=== PATIENT | male | born 1955 | race Caucasian/White ===

== ENCOUNTER 2020-02-24 17:24 | Inpatient (IN) | payer OTHER ==
[~2020-02-24 17:24] MED LIST: Rocuronium Bromide 10 MG/ML (10ML VIAL) ONE
[2020-02-24 17:59] LABS: Actual Bicarbonate (HCO3a) 18.3 mEq/L (22-28); Analyzer IN Cardio ER; Base Excess (BEa) -4.6 mEq/L (-2.0 to +3.0); CO2 Tension 28.2 mmHg (35.0-45.0); Calcium, Ionized (arterial) 1.06 mmol/L (1.12-1.30); Carboxyhemoglobin (COHb) 0.2 gm% (0.0-3.0); Hemoglobin (Hb) 14.5 g/dL (14.0-18.0); Potassium - ABG Lab 3.68 mmol/L (3.70-5.30); pH, Arterial 7.43 (7.35-7.45)
[2020-02-24] MEDS ORDERED: Cefepime 2 GM VIAL ONE (18:02)
[2020-02-24] MEDS ORDERED: Albuterol 200 PUFF (6.7GM INHALER) ONE (18:02)
[2020-02-24] MEDS ORDERED: Vancomycin 1 GM/200 ML BAG ONE (18:02)
[2020-02-24 18:13] LABS: O2 Tension (PaO2), arterial 54.3 mmHg (> 80.0); Puncture Site RRA
[2020-02-24 18:18] LABS: #Lymphocytes 0.6 thou/uL (1.20-3.40); #Monocytes 0.3 thou/uL (0.11-0.59); %Lymphocytes 15.1 % (21.0-51.0); %Monocytes 8.2 % (0.0-10.0); %Neutrophils 76.6 % (42.0-75.0); Hemoglobin 11.8 g/dL (14.0-18.0); Mean Corpuscular HGB CONC 35.1 g/dL (32.0-36.0); Mean Corpuscular Hemoglobin 35.1 pg (27.0-31.0); Mean Platelet Volume 8.3 fL (7.4-10.4); Platelet Count 38 thou/uL (130-400); RBC Distribution Width 13.6 % (11.5-14.5); Red Blood Cell (RBC) Count 3.35 mill/uL (4.70-6.10); White Blood Cell (WBC) Count 3.9 thou/uL (4.8-10.8)
[2020-02-24 18:33] LABS: Platelet Morphology Comment Appears Decreased
[2020-02-24 18:35] LABS: ALT (SGPT) 36 U/L (8-55); AST (SGOT) 109 U/L (5-34); Albumin 2.9 g/dL (3.4-4.8); Alkaline Phosphatase 152 U/L (40-110); Anion Gap 13 mmol/L (10-20); BUN (Urea Nitrogen) 18 mg/dL (8.4-25.7); Bilirubin, Total 1.5 mg/dL (0.2-1.2); CK (CPK) 685 U/L (30-200); Calc. Creatinine Clearance 0 mL/min (70-130); Calcium 7.5 mg/dL (7.8-10.44); Carbon Dioxide 18 mmol/L (23-31); Chloride 107 mmol/L (98-107); Estimated GFR-MDRD Greater than 90; Globulin 3.3 g/dL (2.4-3.5); Glucose 150 mg/dL (80-115); Magnesium 2.1 mg/dL (1.6-2.6); Potassium 3.7 mmol/L (3.5-5.1); Protein, Total 6.2 g/dL (5.8-8.1); Sodium 134 mmol/L (136-145)
[2020-02-24 19:05] LABS: CKMB 85.6 ng/mL (0-6.6)
--- NOTE | 2020-02-24 19:06 | RAD ---
Chest AP view INDICATION: 64-year-old male with dyspnea, hypoxia and hypotension COMPARISON: Prior chest radiograph dated February 18, 2020 FINDINGS: Lungs: Since the comparison examination, there is been interval development of prominent peripheral airspace opacities within the right upper lobe and left midlung suspicious for pneumonia. Cardiac silhouette: The cardiomediastinal silhouette appears within normal limits. Pulmonary vasculature: Normal Pleural spaces: No pleural effusion or pneumothorax is demonstrated. Upper abdomen: No abnormality seen. Osseous structures: No acute osseous abnormality. Additional findings: None. IMPRESSION: Bilateral pneumonia
[2020-02-24 20:13] LABS: Actual Bicarbonate (HCO3a) 15.4 mEq/L (22-28); Analyzer IN Cardio ER; Base Excess (BEa) -13.8 mEq/L (-2.0 to +3.0); Calcium, Ionized (arterial) 1.11 mmol/L (1.12-1.30); Hemoglobin (Hb) 13.8 g/dL (14.0-18.0); Potassium - ABG Lab 3.72 mmol/L (3.70-5.30)
[2020-02-24 20:16] LABS: O2 Tension (PaO2), arterial 55.6 mmHg (> 80.0); pH, Arterial 7.12 (7.35-7.45)
[2020-02-24 20:17] LABS: Puncture Site LR
--- NOTE | 2020-02-24 20:35 | RAD ---
PORTABLE CHEST ONE VIEW: 02/24/20 at 8:04 p.m. HISTORY: Respiratory failure. FINDINGS/IMPRESSION: Comparison is made with earlier exam of 6:41 p.m. from the same date. Interval placement of an endotr acheal tube is seen with tip just below the level of the clavicular heads. A nasogastric tube has als o been placed which can traced into the abdomen. Remainder of the exam is otherwise unchanged with b ilateral peripheral air space opacities. POS: MZA
[2020-02-24 21:03] LABS: Bilirubin Negative (Negative); Blood, Urine 1+ (Negative); Clarity Clear (Clear); Glucose, Urine (Dipstick) Normal (Negative); Leukocyte Negative Leu/uL (Negative); Mucous/LPF Rare LPF (<2+); Nitrite Negative (Negative); Protein, Urine (Dipstick) 30 mg/dL (Neg-Trace); Renal Epithelial 0-3 HPF (None Seen); Squamous Epithelial None Seen HPF (0-3); Urobilinogen 3 mg/dL (Less than 2); WBC/HPF 0-3 HPF (0-3)
--- NOTE | 2020-02-24 21:06 | PDOC.FPRHP ---
Addendum entered and electronically signed by Mushtaq Packer MD 02/24/20 21:50 : I went assessed physical on patient. Pt prone and intubated at time of examination. No edema or rash or sign of skin infection noted. VSS. Covering pt with cefepime abx at this time. Likely course 2/2 COVID but will cover Bilateral PNA for any hospital acquired cause as recently was hospitilized at [facility]. Original Note: - History of Present Illness Chief Complaint: SOB/Hypotension History of Present Illness: 64 yo male presents via EMS from nursing home due to increased SOB and hypotension. History obtained from chart review and ED staff. Patient was diagnosed with COVID on 02/18/2020 at [facility]. Patient was discharged back to nursing home facility. Over the last several days he became increasingly SOB and today was found to have a room air O2 in the 70s. He was also found to be hypotensive to 90s/60s and was given NS bolus with improvement of BP to normotensive range. Upon arrival to [facility] he was placed on HFNC and his O2 saturation improved to 90s. However, he began to have increased dyspnea and was intubated. No other history was able to be obtained. ED Course: Vancomycin Cefepime Proventil Rocuronium Etomidate Fentanyl - Allergies/Adverse Reactions Allergies Allergy/AdvReac Type Severity Reaction Status Date / Time No Known Allergies Allergy Unverified 02/24/20 20:03 - Home Medications Medication Instructions Recorded Confirmed Type Unobtainable 02/24/20 02/24/20 History - History PMHx: COPD, HTN, CAD, HLD, Cirrhosis, Thrombocytopenia, Bipolar PSHx: Inguinal Hernia FHx: Non-contributory Social: Currently incarcerated. Former methamphetamine and tobacco abuser. - Review of Systems ROS unobtainable: due to endotracheal tube - Vital signs BP: 134/94 HR: 109 RR: 33 Tmax: 99.1 Pox: 94% on Ventilator Wt: 84.00 kg - Physical Exam -Constitutional: Intubated and sedated -HEENT: ET in place Neck: trachea midline -Chest: Symmetric rise and fall -Heart: Sterile stethoscope not available for auscultation -Lungs: No sterile stethoscope available for auscultation Abdomen: soft, non-tender, bowel sounds present, no masses/distention Musculoskeletal: normal structure, normal tone -Neurological: intubated and sedated -Psychiatric: intubated and sedated FMR H&P: Results - Labs Result Diagrams: 02/24/20 17:45 02/24/20 17:45 Lab results: WBC 3.9 thou/uL (4.8-10.8) L 02/24/20 17:45 Hgb 11.8 g/dL (14.0-18.0) L 02/24/20 17:45 Hct 33.5 % (42.0-52.0) L 02/24/20 17:45 MCV 100.0 fL (78.0-98.0) H 02/24/20 17:45 Plt Count 38 thou/uL (130-400) L 02/24/20 17:45 Neutrophils % 76.6 % (42.0-75.0) H 02/24/20 17:45 ABG pH 7.12 (7.35-7.45) L* 02/24/20 19:43 ABG pCO2 49.0 mmHg (35.0-45.0) H 02/24/20 19:43 ABG pO2 55.6 mmHg (> 80.0) L* 02/24/20 19:43 Sodium 134 mmol/L (136-145) L 02/24/20 17:45 Potassium 3.7 mmol/L (3.5-5.1) 02/24/20 17:45 Chloride 107 mmol/L (98-107) 02/24/20 17:45 Carbon Dioxide 18 mmol/L (23-31) L 02/24/20 17:45 BUN 18 mg/dL (8.4-25.7) 02/24/20 17:45 Creatinine 0.83 mg/dL (0.7-1.3) 02/24/20 17:45 Glucose 150 mg/dL (80-115) H 02/24/20 17:45 Lactic Acid 2.8 mmol/L (0.5-2.2) H 02/24/20 17:45 Calcium 7.5 mg/dL (7.8-10.44) L 02/24/20 17:45 Total Bilirubin 1.5 mg/dL (0.2-1.2) H 02/24/20 17:45 AST 109 U/L (5-34) H 02/24/20 17:45 ALT 36 U/L (8-55) 02/24/20 17:45 Alkaline Phosphatase 152 U/L (40-110) H 02/24/20 17:45 Creatine Kinase 685 U/L (30-200) H 02/24/20 17:45 CK-MB (CK-2) 85.6 ng/mL (0-6.6) H* 02/24/20 17:45 Serum Total Protein 6.2 g/dL (5.8-8.1) 02/24/20 17:45 Albumin 2.9 g/dL (3.4-4.8) L 02/24/20 17:45 - EKG Interpretation EK lead EKG shows normal sinus rhythm, Rate (beats per minute): 88, with no ectopics, Conduction normal, ST segments normal, [place], left, Nonspecific T wave abnormalities QTC 515. - Radiology Interpretation Chest x-ray Status: image reviewed by me (Bilateral pneumonia) FMR H&P: A/P - Problem List (1) 2019 novel coronavirus disease (COVID-19) Current Visit: Yes Status: Acute Code(s): U07.1 - COVID-19 (2) Bilateral pneumonia Current Visit: Yes Status: Acute Code(s): J18.9 - PNEUMONIA, UNSPECIFIED ORGANISM (3) NSTEMI (non-ST elevated myocardial infarction) Current Visit: Yes Status: Acute Code(s): I21.4 - NON-ST ELEVATION (NSTEMI) MYOCARDIAL INFARCTION (4) Acute respiratory failure with hypoxia Current Visit: Yes Status: Acute Code(s): J96.01 - ACUTE RESPIRATORY FAILURE WITH HYPOXIA (5) Lactic acid acidosis Current Visit: Yes Status: Acute Code(s): E87.2 - ACIDOSIS (6) Cirrhosis Current Visit: Yes Status: Acute Code(s): K74.60 - UNSPECIFIED CIRRHOSIS OF LIVER (7) Thrombocytopenia Current Visit: Yes Status: Acute Code(s): D69.6 - THROMBOCYTOPENIA, UNSPECIFIED - Plan COVID-19 - Currently intubated - Plan for prone protocol - Isolation precautions - QTC 515 on EKG - Pulmonology consulted Bilateral pneumonia - Evidence on CXR - Empiric antibiotics NSTEMI - Troponin 27.2 on admission - Cardiology consulted and recommended no intervention at this time 2/2 to thrombocytopenia and COVID Thrombocytopenia - Chronic - 2/2 to liver Cirrhosis - Hold on anticoagulation Lactic Acidosis - 2.8 on admission - Repeat pending - Likely secondary to #1 PCP: CC - [facility] CODE STATUS: FULL CODE, but will need to contact nursing home for further direction Disposition: Poor prognosis, will admit to CCU for further evaluation and management Addendum - Attending - Attending Attestation Date/Time: 02/24/20 2770 I personally evaluated the patient and discussed the management with Dr. Baker at time of admission to the CCU yehuda. I agree with the History, Examination, Assessment and Plan documented above with any addition or exceptions noted below.
[2020-02-24 21:09] LABS: Bacteria/HPF 1+ HPF (None Seen)
[2020-02-24 21:16] LABS: Troponin I 24.762 ng/mL (< 0.028)
[2020-02-24] MEDS ORDERED: Fentanyl BOLUS 250 ML IVPB PRN (21:24)
[2020-02-24] MEDS ORDERED: DISCONTINUE PREVIOUS NARCOTIC PAIN MEDICATIONS AND BENZODIAZEPINES FS SCH (21:24)
[2020-02-24] MEDS ORDERED: Morphine 2 MG/ML SYRINGE SLOW IVP PRN (21:24)
[2020-02-24] MEDS ORDERED: Lorazepam 2 MG/ML VIAL SLOW IVP PRN (21:24)
[2020-02-24] MEDS ORDERED: Propofol BOLUS 1,000 MG/100 ML VIAL IV PRN (21:24)
[2020-02-24] MEDS ORDERED: Ventilator Sedation Protocol 1 EACH FS SCH (21:46)
[2020-02-24] MEDS ORDERED: CCU Electrolyte Replacement 1 EACH IVPB SCH (21:46)
[2020-02-24] MEDS ORDERED: Magnesium 2 GM/50 ML 2 GM in Premix Bag 1 BAG IVPB PRN (22:02)
[2020-02-24] MEDS ORDERED: Potassium Phosphate 12 MMOL in Sodium Chloride 0.9% 250 ML 250 ML IV PRN (22:02)
[2020-02-24] MEDS ORDERED: Magnesium Oxide 400 MG TAB PO PRN ×2 (22:02)
[2020-02-24] MEDS ORDERED: Potassium Phosphate 15 MMOL in Sodium Chloride 0.9% 250 ML 250 ML IV PRN (22:02)
[2020-02-24] MEDS ORDERED: Potassium Chloride 20 MEQ TAB PO PRN (22:02)
[2020-02-24] MEDS ORDERED: Potassium Phosphate 9 MMOL in Sodium Chloride 0.9% 100 ML IVPB PRN (22:02)
[2020-02-24] MEDS ORDERED: PHOS-NAK 1 PKT PACK PO PRN ×2 (22:02)
[2020-02-24] MEDS ORDERED: Potassium Chloride 40 MEQ in Premix Bag 1 BAG IVPB PRN (22:02)
[2020-02-24] MEDS ORDERED: CCU ELECTROLYTE REPLACEMENT PROTOCOL FS PRN (22:02)
[2020-02-24] MEDS ORDERED: Potassium Chloride 40 MEQ in Sodium Chloride 0.9% 250 ML 250 ML IVPB PRN (22:02)
[2020-02-24] MEDS ORDERED: Famotidine/PF 20 mg/2ml Vial SLOW IVP SCH (22:15)
[2020-02-24] MEDS: Sodium Bicarbonate 70 MEQ in Sodium Chloride 0.45% 1,000 ML IV SCH (22:18)
[2020-02-24] MEDS ORDERED: Tocilizumab 400 MG in Sodium Chloride 0.9% 80 ML IV SCH (22:30)
[2020-02-24] MEDS: methylPREDNISolone Sod Succ/PF 125 MG/2 ML VIAL IVP SCH (22:57)
[2020-02-24 23:08] LABS: INR-International Normal Ratio 1.1; PTT 29.7 sec (22.9-36.1); Prothrombin Time 14.5 sec (12.0-14.7)
--- NOTE | 2020-02-24 23:09 | PDOC.BPN ---
- Brief Progress Note Nurses called requesting central line access. Due to the patient's thrombocytopenia, I have declined placing CVC due to risk of bleeding complication. I suggested IO access as an alternative.
[2020-02-24 23:10] LABS: D-Dimer Test 1.56 *mcg/mL (0.27-0.43)
[2020-02-24 23:45] LABS: Critical Call Chem Troponin I RESULT DECREASING
[2020-02-24] MEDS: Vecuronium 10 MG VIAL IVP PRN (23:45)
[2020-02-25 00:12] LABS: CKMB 113.5 ng/mL (0-6.6)
--- NOTE | 2020-02-25 01:38 | CON ---
DATE OF CONSULTATION: 02/24/2020 This is a 45 minutes critical care time. CONSULTING PHYSICIAN: [facility]. REASON FOR CONSULTATION: COVID-19 infection, respiratory failure, and pneumonia. HISTORY OF PRESENT ILLNESS: The patient is an inmate from [facility]. He is 64 years old. He has documented COVID-19 infection and was seen here on February 17. Subsequently transferred to [facility] and I guess sent back to the [facility]. He was brought to this facility today with impending respiratory failure. He has had a large non-Q-wave myocardial infarction. He has been intubated at my request because of progressive hypoxemia. PAST MEDICAL HISTORY: 1. COPD. 2. Hypertension. 3. Coronary artery disease. 4. Hyperlipidemia. 5. Cirrhosis. 6. Thrombocytopenia. PAST SURGICAL HISTORY: He has had inguinal hernia surgery. SOCIAL HISTORY: Used to use methamphetamines. Former tobacco smoker. ALLERGIES: NONE LISTED. MEDICATIONS: 1. Aspirin 81 mg daily. 2. Atorvastatin 40 mg daily. 3. Benadryl. 4. Flovent. 5. Perphenazine. 6. Venlafaxine 75 mg daily. REVIEW OF SYSTEMS: Cannot be obtained. The patient is currently on mechanical ventilation. PHYSICAL EXAMINATION: VITAL SIGNS: O2 saturations running in the 80s on mechanical ventilation, temperature 99.1, pulse 117, and blood pressure 147/102. GENERAL: This patient is obtunded, sedated, and paralyzed on mechanical ventilation. HEENT: Pupils are reactive. Sclerae anicteric. Oropharynx clear. NECK: No JVD. LUNGS: Coarse breath sounds bilaterally. CARDIOVASCULAR: S1 and S2. Regular. ABDOMEN: Soft. EXTREMITIES: Petechiae over his extremities. IMAGING: His chest x-ray shows diffuse bilateral infiltrates concentrated mainly in the left lingula and the right upper lobe. ET tube is in good position. LABORATORY DATA: White blood cell count 3.9, hematocrit 33.5, and platelet count 38,000. ABG; pH of 7.12, pCO2 of 49, pO2 of 55 on SIMV rate 22, tidal volume 500, PEEP 10, and FiO2 of 100%. Sodium 134, potassium 3.7, chloride 107, CO2 of 18, BUN 18, creatinine 0.8, glucose 115, and alkaline phosphatase 152. CPK 685 and troponin 27.2. Albumin 2.9, AST 109, and ALT 36. ASSESSMENT AND PLAN: This is an elderly [facility] inmate with multiple comorbidities, who is presenting with a non-Q-wave myocardial infarction, COVID-19 infection with progressive pneumonia, and hypoxic respiratory failure. He also has underlying COPD, thrombocytopenia. He has developed a respiratory and metabolic acidosis, liver dysfunction, and lactic acidosis. This patient's prognosis is very poor. He needs aggressive care that will include prone positioning with mechanical ventilation, IV corticosteroids, convalescent plasma transfusion, and IL-6 inhibitor. Based on how far long he would not be a good candidate from Remdesivir as it is not effective later in the illness. The patient's current myocardial infarction is of extreme concern. It would be nice to anticoagulate the patient. However, he has severe thrombocytopenia with petechial hemorrhages, so that is probably not advisable at this time. Once the patient stabilizes, then [place] transfer needs to be considered. Job ID: [id number]
--- NOTE | 2020-02-25 01:58 | OP ---
DATE OF PROCEDURE: 02/24/2020 PROCEDURE PERFORMED: Right femoral central line placement. PREOPERATIVE DIAGNOSIS: Poor IV access. POSTOPERATIVE DIAGNOSIS: Successful central line placement. ANESTHESIA: 1% lidocaine without epinephrine. DESCRIPTION OF PROCEDURE: Right femoral area was cleansed with chlorhexidine and draped sterilely. 1% lidocaine was used to anesthetize the entry site. Using ultrasound guidance, the right femoral vein was cannulated first attempt. A triple-lumen catheter was placed via modified Seldinger technique without difficulty. Three ports flushed venous blood. Procedure was tolerated well. Job ID: [id number]
[2020-02-25 01:59] LABS: #Lymphocytes 0.4 thou/uL (1.20-3.40); #Monocytes 0.1 thou/uL (0.11-0.59); #Neutrophils 1.8 thou/uL (1.40-6.50); %Basophils 0.3 % (0.0-1.0); %Eosinophils 0.2 % (0.0-10.0); %Lymphocytes 17.7 % (21.0-51.0); %Monocytes 3.7 % (0.0-10.0); %Neutrophils 78.1 % (42.0-75.0); Hemoglobin 12.7 g/dL (14.0-18.0); Mean Corpuscular HGB CONC 34.1 g/dL (32.0-36.0); Mean Corpuscular Hemoglobin 34.9 pg (27.0-31.0); Mean Platelet Volume 8.6 fL (7.4-10.4); Platelet Count 40 thou/uL (130-400); RBC Distribution Width 14.1 % (11.5-14.5); Red Blood Cell (RBC) Count 3.65 mill/uL (4.70-6.10); White Blood Cell (WBC) Count 2.3 thou/uL (4.8-10.8)
[2020-02-25] MEDS: Norepinephrine 8 MG/0.9% NS 250 ML IVPB SCH ×2 (02:19→18:04)
[2020-02-25 02:24] LABS: ALT (SGPT) 39 U/L (8-55); AST (SGOT) 148 U/L (5-34); Albumin 2.8 g/dL (3.4-4.8); Alkaline Phosphatase 147 U/L (40-110); Anion Gap 14 mmol/L (10-20); BUN (Urea Nitrogen) 20 mg/dL (8.4-25.7); Bilirubin, Total 1.8 mg/dL (0.2-1.2); Calc. Creatinine Clearance 124 mL/min (70-130); Calcium 7.4 mg/dL (7.8-10.44); Carbon Dioxide 18 mmol/L (23-31); Chloride 107 mmol/L (98-107); Estimated GFR-MDRD Greater than 90; Globulin 3.4 g/dL (2.4-3.5); Glucose 147 mg/dL (80-115); Potassium 3.9 mmol/L (3.5-5.1); Protein, Total 6.2 g/dL (5.8-8.1); Sodium 135 mmol/L (136-145)
[2020-02-25] MEDS: Vecuronium 10 MG VIAL IVP PRN ×5 (05:05→21:35)
[2020-02-25] MEDS: methylPREDNISolone Sod Succ/PF 125 MG/2 ML VIAL IVP SCH ×4 (05:05→23:47)
[2020-02-25] MEDS: Cefepime 2 GM in Sodium Chloride 0.9% 100 ML IVPB SCH ×2 (05:09→18:04)
--- NOTE | 2020-02-25 06:02 | PDOC.FM ---
- Subjective Subjective: Nursing reports no acute events overnight outside of that documented in the H& P. Pt has has lower end of urine output - Objective MAR Reviewed: Yes Vital Signs & Weight: Vital Signs (12 hours) Pulse Resp BP Pulse Ox 02/25/20 04:00 24 H 02/25/20 03:51 95 02/25/20 02:00 24 H 02/25/20 01:54 89 97/75 02/25/20 00:05 97 24 H 100 02/25/20 00:00 24 H 02/24/20 21:49 91 98/67 Weight Weight 92.7 kg Most Recent Monitor Data Heart Rate from ECG 85 NIBP 96/73 NIBP BP-Mean 80 Respiration from ECG 24 SpO2 98 I&O: 02/23/20 02/24/20 02/25/20 06:59 06:59 06:59 Intake Total 100 Output Total 290 Balance -190 Result Diagrams: 02/25/20 01:44 02/25/20 01:44 Phys Exam - Physical Examination Intubated, prone, sedated, paralized Respiratory: no wheezing, no rhonchi coarse breathsounds throughout, good air movement RRR per leads, unable to auscultate as pt is prone Pt was prone Musculoskeletal: no edema, pulses present Sedated and paralized Skin: cap refill <2 seconds Deviation from normal: clubing of nails, scattered brusing and petechia Dx/Plan (1) 2019 novel coronavirus disease (COVID-19) Code(s): U07.1 - COVID-19 Status: Acute (2) Acute respiratory failure with hypoxia Code(s): J96.01 - ACUTE RESPIRATORY FAILURE WITH HYPOXIA Status: Acute (3) Bilateral pneumonia Code(s): J18.9 - PNEUMONIA, UNSPECIFIED ORGANISM Status: Acute (4) Lactic acid acidosis Code(s): E87.2 - ACIDOSIS Status: Acute (5) NSTEMI (non-ST elevated myocardial infarction) Code(s): I21.4 - NON-ST ELEVATION (NSTEMI) MYOCARDIAL INFARCTION Status: Acute (6) Thrombocytopenia Code(s): D69.6 - THROMBOCYTOPENIA, UNSPECIFIED Status: Acute - Plan Plan: Code: Full Prophylaxis: Pepcid Family: 2 guards per protocol Fluids: Bicarb drip 100ml/hr Drips: Levophed 6, propofol 10 Vent Settings: Bilevel 24 breaths/min, 28/14, Fio2 60 Lines/Tubes: ET,OT,Monreal catheter, right central femoral line, left peripheral IV in hand Hospital day: 1 Disposition: DC in greater that 5 days, attempts will be made to transfer pt to [facility] when pt is more stable PCP: Skilled Nursing Plan: This is an unfortunate 64 yo male with a pmh of cirrhosis, COPD, HTN, HLD , bipolar disorder who is currently incarcerated, here for Sepsis, COVID-19, and respiratory failure. Goals to obtain convalescent plasma for COVID treatment , continue ventilator support, and pressure support. Will address NSTEMI per cardiology recommendations. Acute hypoxic hypercapnic respiratory failure -Intubated, ventilator/respiratory support -Daily ABG and CXR -Will work to wean as appropriate -Sedation protocol -CXR today appears improved from admitting CXR -ABG shows improvement with respiratory alkalosis and underlying metabolic acidosis Bilateral pneumonia 2/2 COVID-19 -S/P tocilizamab and will work to order convalescent plasma -Covering with cefepime for bacterial PNA as well due to recent hospitalization -Covid diagnosed on 02/18/20 Sepsis 2/2 above -Pt has received 1 L of NS and is currently on a bicarb drip -Will monitor urine output to adjust fluids, however pt is at risk for pulmonary edema give etiology of sepsis -Pending Blood cultures NSTEMI type 1 -Cardiology consulted and recommends no intervation or anticoaguation at this time 2/2 thrombocytopenia and COVID. Will wait for cardiology recommendations Pancytopenia -WBC 2.3, Hgb 12.7, Plt 40 -Will monitor likely a combination of chronic cirrhosis and current infection Lactic acidosis -Received 1L NS in the ER, increased from 2.8->3.0 QTc prolongation -Will monitor, Mag 2.1, potassium 3.9 CHRONIC ILLNESSES Cirrhosis -Will obtain hepatitis status COPD -Managed as above HTN -Hold any BP meds for the time being CAD -Continue aspirin and atorvastatin HLD -As with CAD Bipolar -Hold meds for now give QTc prolongation Addendum - Attending - Attending Attestation Date/Time: 02/25/20 1006 I personally evaluated the patient and discussed the management with [ Sandy] I agree with the History, Examination, Assessment and Plan documented above with any addition or exceptions noted below.
[2020-02-25 07:19] LABS: Actual Bicarbonate (HCO3a) 17.6 mEq/L (22-28); Base Excess (BEa) -3.4 mEq/L (-2.0 to +3.0); Calcium, Ionized (arterial) 1.07 mmol/L (1.12-1.30); Carboxyhemoglobin (COHb) 0.3 gm% (0.0-3.0); Hemoglobin (Hb) 12.7 g/dL (14.0-18.0); O2 Tension (PaO2), arterial 151.8 mmHg (> 80.0); Potassium - ABG Lab 3.82 mmol/L (3.70-5.30); pH, Arterial 7.52 (7.35-7.45)
[2020-02-25 07:40] LABS: CO2 Tension 22.2 mmHg (35.0-45.0); Puncture Site LRA
--- NOTE | 2020-02-25 08:55 | PRG ---
DATE OF SERVICE: 02/25/2020 35 minutes of critical care time. SUBJECTIVE: This patient remains intubated on mechanical ventilation. He is currently in the prone position. OBJECTIVE: VITAL SIGNS: His temperature is 99.9, pulse 78, blood pressure 92/69, currently on a Levophed drip at 6 mcg/minute. His total intake since admission has been 725, output 316. GENERAL: He is paralyzed and sedated. HEENT: Unremarkable. NECK: No JVD. LUNGS: Coarse breath sounds. CARDIAC: S1 and S2. Regular. ABDOMEN: Soft. EXTREMITIES: No edema. LABORATORY DATA: Sodium 135, potassium 3.9, chloride 107, CO2 of 18, BUN 20, creatinine 0.8, glucose 147. C-reactive protein 1.7. Troponin 27. PH 7.52, pCO2 of 22, pO2 of 151 on bilevel rate 24, high pressure 28, low pressure 14, and FiO2 of 60%. White blood cell count 2.3, hematocrit 37.3, and platelet count 40. Chest x-ray shows some improvement in the left chest. ASSESSMENT: 1. COVID-19 with pneumonia. 2. Acute respiratory failure requiring mechanical ventilation. 3. Myocardial infarction. PLAN: 1. The patient has received awaiting convalescent plasma. 2. Continue prone position ventilating for at least 24 total hours for . 3. ET tube needs to be pushed down about 2 cm next time in the room. 4. Adjust respiratory rate down to 20. 5. Continue IV corticosteroids. 6. Continue bicarbonate drip. Prognosis is very poor. Job ID: [id number]
--- NOTE | 2020-02-25 09:09 | RAD ---
PORTABLE CHEST ONE VIEW: 02/25/2020 4:53 a.m. HISTORY: Respiratory failure. Pneumonia. COMPARISON: Study from the previous day. FINDINGS: Endotracheal tube and nasogastric tube remain in place. Interval improvement of the bilateral infiltr ates is noted since the previous day's exam. POS: OFF
[2020-02-25] MEDS ORDERED: Sterile Water 10 ML ONE ×3 (09:40→16:03)
[2020-02-25] MEDS: Famotidine/PF 20 mg/2ml Vial SLOW IVP SCH ×2 (09:42→19:35)
[2020-02-25] MEDS: Propofol 1,000 MG/100 ML VIAL IV PRN ×3 (09:43→21:31)
[2020-02-25] MEDS: Sodium Bicarbonate 70 MEQ in Sodium Chloride 0.45% 1,000 ML IV SCH ×2 (09:59→19:15)
--- NOTE | 2020-02-25 12:20 | CON ---
DATE OF CONSULTATION: 02/25/2020 INDICATION FOR CONSULTATION: A 64-year-old gentleman with elevated cardiac enzymes. HISTORY OF PRESENT ILLNESS: A 64-year-old gentleman who has been diagnosed with COVID-19, was admitted after he became increasing shortness of breath, dyspnea, hypoxia with O2 sats in the 70s and hypotension with blood pressure 90/60. He presented to the emergency room, continued to decompensate and developed acute respiratory failure, required intubation. He recently was seen at [facility] apparently for what was felt to be some unstable angina. Apparently, no significant workup was performed due to the COVID virus. He then was referred back to here back to the facility and then eventually came back to us. His troponin I was 27, decreased to 24, now back up to 27 since he has been admitted. His CPK-MB was 113.5. EKG does not show any acute changes that would indicate ischemia. He does have evidence of probable old anterior myocardial infarction. On review of his records, it does state that he has coronary artery disease, but I cannot find any diagnosis of why he has coronary artery disease or the extent of his disease was, but certainly he may have had a myocardial infarction in the past due to the abnormal EKG that was found. I did call and speak to the [facility] facility about his cardiac history. The only information that they could give me that they could find in the records was there was a questionable mass in the left atrium, but they thought this also could be artifact. They could not find the remaining results of the echocardiogram and no other information was given as far as the cardiac status was concerned. I have informed that they should send any further records once they have obtained these records so that I will know what his cardiac status actually is. At this time, the patient remains intubated, he is in the prone position due to his COVID virus, his chest x-ray showed diffuse infiltrate earlier when he was admitted. These now appears to be more of a congestive type picture. He certainly may have congestive heart failure, but also the elevated cardiac enzymes could indicate a [id number] elevation myocardial infarction or also could certainly be myocarditis in this gentleman with COVID virus. We are unable to give him any anticoagulation due to his thrombocytopenia. Platelet count was 40,000. He does have a history of chronic thrombocytopenia. He also has cirrhosis of the liver and thus giving this patient anticoagulation would certainly be dangerous in his situation perhaps at this time. Again, there is no ST-segment elevation. We will continue to monitor this. PAST MEDICAL HISTORY: Significant for supposedly coronary artery disease since in 2002, history of chronic obstructive pulmonary disease in the form of emphysema, hypertension, dyslipidemia, cirrhosis, thrombocytopenia, bipolar disorder. He had a hernia repair. SOCIAL HISTORY: He smoked in the past, uncertain whether or not he continues to smoke. He is incarcerated. He also had a history of methamphetamine abuse. ALLERGIES: UNCERTAIN IF THE PATIENT HAS ANY ALLERGIES. NONE WERE LISTED. REVIEW OF SYSTEMS: Not obtainable. Please refer to the notes already dictated by the other physicians. MEDICATIONS: At this time included 1. Norepinephrine. 2. Steroids. 3. Antibiotics. Please refer to the nursing listing of his previous medications prior to admission. PHYSICAL EXAMINATION: Deferred due to the COVID virus, but please refer to the notes already dictated by the physicians who have already assessed this patient. VITAL SIGNS: At this time, his blood pressure is 115/81, earlier was 98/74, heart rates in the 70s to 80s and shows a sinus rhythm. His temperature was 99, respiratory rate was 24 to 20. DIAGNOSTIC STUDIES: EKG shows a normal sinus rhythm with an old anterior myocardial infarction. No acute changes. Chest x-ray shows congestion and the infiltrations are still present, but are decreased from a chest x-ray performed yesterday. IMPRESSION: 1. COVID positive patient with pneumonia and possible myocarditis. He is on the ventilator. We will continue to be monitored and treated by the insulation blanket maker. 2. Elevated cardiac enzymes. Again, this may be due to a ght-XN-ohlqaom elevation myocardial infarction, certainly with a history of coronary artery disease, which we do not have any documentation now, and also this could be due to myocarditis due to the COVID-19. He is already on steroids and antibiotics and would continue these medications. 3. Acute respiratory failure due to his pneumonia. 4. History of thrombocytopenia, making it very difficult to give this patient anticoagulation. He is not a candidate to undergo cardiac catheterization at this time and nor is it indicated with no evidence of ST-segment elevation. 5. History of cirrhosis. Again, making it difficult to treat the patient with oral anticoagulations. We will continue to monitor the patient. Obviously, prognosis is poor given his history of multiple medical problems and now COVID-19 virus and respiratory failure. Job ID: [id number]
[2020-02-25] MEDS: fentaNYL Citrate/PF 2,000 MCG in Sodium Chloride 0.9% 60 ML IV SCH (13:09)
[2020-02-26] MEDS: Vecuronium 10 MG VIAL IVP PRN ×6 (00:30→16:19)
[2020-02-26 03:59] LABS: #Lymphocytes 0.6 thou/uL (1.20-3.40); #Monocytes 0.3 thou/uL (0.11-0.59); #Neutrophils 12.6 thou/uL (1.40-6.50); %Basophils 0.1 % (0.0-1.0); %Lymphocytes 4.4 % (21.0-51.0); %Monocytes 2.5 % (0.0-10.0); %Neutrophils 93.1 % (42.0-75.0); Hemoglobin 13.1 g/dL (14.0-18.0); Mean Corpuscular Hemoglobin 34.5 pg (27.0-31.0); Mean Platelet Volume 8.8 fL (7.4-10.4); Platelet Count 59 thou/uL (130-400); RBC Distribution Width 13.9 % (11.5-14.5); Red Blood Cell (RBC) Count 3.81 mill/uL (4.70-6.10); White Blood Cell (WBC) Count 13.6 thou/uL (4.8-10.8)
[2020-02-26 04:18] LABS: ALT (SGPT) 42 U/L (8-55); AST (SGOT) 180 U/L (5-34); Albumin 2.8 g/dL (3.4-4.8); Alkaline Phosphatase 138 U/L (40-110); Anion Gap 15 mmol/L (10-20); BUN (Urea Nitrogen) 25 mg/dL (8.4-25.7); Bilirubin, Total 2.5 mg/dL (0.2-1.2); CRP (Inflammatory) 1.53 mg/dL (= or < 0.5); Calc. Creatinine Clearance 136 mL/min (70-130); Calcium 7.4 mg/dL (7.8-10.44); Carbon Dioxide 19 mmol/L (23-31); Chloride 104 mmol/L (98-107); Estimated GFR-MDRD Greater than 90; Globulin 3.2 g/dL (2.4-3.5); Glucose 234 mg/dL (80-115); Potassium 3.9 mmol/L (3.5-5.1); Sodium 134 mmol/L (136-145)
[2020-02-26 04:36] LABS: HBSAB Concentration 1.41 mIU/mL; HBSAg Index 0.15 S/CO (0-0.99); Hep B Surf AB Non-Reactive (NonReactive); Hep B Surf Ag Non-Reactive S/CO (NonReactive)
[2020-02-26 04:42] LABS: Hep C IgG Ab Reflex HepC Qnt (NonReactive)
[2020-02-26] MEDS: Cefepime 2 GM in Sodium Chloride 0.9% 100 ML IVPB SCH ×2 (05:28→18:02)
[2020-02-26] MEDS: Sodium Bicarbonate 70 MEQ in Sodium Chloride 0.45% 1,000 ML IV SCH (05:28)
[2020-02-26] MEDS: Propofol 1,000 MG/100 ML VIAL IV PRN ×4 (05:28→22:54)
[2020-02-26] MEDS: methylPREDNISolone Sod Succ/PF 125 MG/2 ML VIAL IVP SCH ×4 (05:28→23:04)
[2020-02-26] MEDS ORDERED: Dextrose 50% Abboject 50 ML SYRINGE SLOW IVP PRN (06:04)
[2020-02-26] MEDS ORDERED: Dextrose 5% in Water 1,000 ML IV PRN (06:04)
--- NOTE | 2020-02-26 06:11 | PDOC.FM ---
- Subjective Subjective: Pt did well overnight per nursing. We are keeping him proned more overnight and today. Per nursing, urine output has picked up, levophed has been titrated down. - Objective MAR Reviewed: Yes Vital Signs & Weight: Vital Signs (12 hours) Temp Pulse Pulse Resp BP BP Pulse Ox 02/26/20 04:00 20 02/26/20 02:48 63 108/68 02/26/20 02:00 20 02/26/20 00:47 64 118/68 02/26/20 00:46 99 02/26/20 00:45 65 20 100 02/26/20 00:00 20 02/25/20 22:05 58 L 99/67 02/25/20 22:00 20 02/25/20 20:00 20 98 02/25/20 18:57 59 L 20 100 02/25/20 18:53 59 L 98/70 02/25/20 18:22 97.5 F L 59 L 20 101/89 97 02/25/20 18:09 97.3 F L 62 20 106/73 98 Weight Admit Weight 92.533 kg Weight 93.1 kg Most Recent Monitor Data Heart Rate from ECG 72 NIBP 119/78 NIBP BP-Mean 91 Respiration from ECG 10 SpO2 99 I&O: 02/24/20 02/25/20 02/26/20 06:59 06:59 06:59 Intake Total 772.5 1879.4 Output Total 360 1250 Balance 412.5 629.4 Result Diagrams: 02/26/20 03:30 02/26/20 03:30 Phys Exam - Physical Examination Prone, sedated, paralized, intubated Respiratory: no wheezing, no rhonchi coarse breathsounds throughout Cardiovascular: RRR (per tele leads as pt is prone) Musculoskeletal: no edema, pulses present Dx/Plan (1) 2019 novel coronavirus disease (COVID-19) Code(s): U07.1 - COVID-19 Status: Acute (2) Acute respiratory failure with hypoxia Code(s): J96.01 - ACUTE RESPIRATORY FAILURE WITH HYPOXIA Status: Acute (3) Bilateral pneumonia Code(s): J18.9 - PNEUMONIA, UNSPECIFIED ORGANISM Status: Acute (4) Lactic acid acidosis Code(s): E87.2 - ACIDOSIS Status: Acute (5) NSTEMI (non-ST elevated myocardial infarction) Code(s): I21.4 - NON-ST ELEVATION (NSTEMI) MYOCARDIAL INFARCTION Status: Acute (6) Thrombocytopenia Code(s): D69.6 - THROMBOCYTOPENIA, UNSPECIFIED Status: Acute - Plan Plan: Code: Full Prophylaxis: Pepcid Family: 2 guards per protocol Fluids: Bicarb drip 100ml/hr Drips: Levophed 3, propofol 15 Vent Settings: Bilevel 20 breaths/min, 28/14, Fio2 40 Lines/Tubes: ET,OT,Monreal catheter, right central femoral line, left peripheral IV in hand Urine output: 40-200ml/hr Hospital day: 2 Disposition: DC in greater that 5 days, attempts will be made to transfer pt to [facility] when pt is more stable PCP: Usp Plan: This is an unfortunate 64 yo male with a pmh of cirrhosis, COPD, HTN, HLD , bipolar disorder who is currently incarcerated, here for Sepsis, COVID-19, and respiratory failure. Goals to obtain convalescent plasma for COVID treatment , continue ventilator support, and pressure support. Will address NSTEMI per cardiology recommendations. Acute hypoxic hypercapnic respiratory failure -Intubated, ventilator/respiratory support -Daily ABG and CXR -Will work to wean as appropriate -Sedation protocol -CXR today appears similar to yesterday Bilateral pneumonia 2/2 COVID-19 -S/P tocilizamab and will work to order convalescent plasma -Covering with cefepime for bacterial PNA as well due to recent hospitalization -Covid diagnosed on 02/18/20 Sepsis 2/2 above -Pt has received 1 L of NS and is currently on a bicarb drip -Will monitor urine output to adjust fluids, however pt is at risk for pulmonary edema give etiology of sepsis -Pending Blood cultures NSTEMI type 1 -Cardiology consulted and recommends no intervation or anticoaguation at this time 2/2 thrombocytopenia and COVID. Will wait for further cardiology recommendations Pancytopenia -Will monitor likely a combination of chronic cirrhosis and current infection Hyperglycemia, likely 2/2 steroids -Adding NPH BID and will be monitoring glucose levels -Glucose protocols in place per orders Lactic acidosis QTc prolongation -Will monitor, Mag 2.1, potassium 3.9 CHRONIC ILLNESSES Cirrhosis -Hep C Ab positive, pending RNA PCR COPD -Managed as above HTN -Hold any BP meds for the time being CAD -Continue aspirin and atorvastatin HLD -As with CAD Bipolar -Hold meds for now give QTc prolongation Addendum - Attending - Attending Attestation Date/Time: 02/26/20 [id number] I personally evaluated the patient and discussed the management with [ Sandy] I agree with the History, Examination, Assessment and Plan documented above with any addition or exceptions noted below.
[2020-02-26 07:08] LABS: Actual Bicarbonate (HCO3a) 17.8 mEq/L (22-28); Base Excess (BEa) -2.2 mEq/L (-2.0 to +3.0); Calcium, Ionized (arterial) 1.07 mmol/L (1.12-1.30); Carboxyhemoglobin (COHb) 0.2 gm% (0.0-3.0); Hemoglobin (Hb) 12.7 g/dL (14.0-18.0); O2 Tension (PaO2), arterial 125.5 mmHg (> 80.0); Potassium - ABG Lab 3.94 mmol/L (3.70-5.30)
[2020-02-26 07:11] LABS: CO2 Tension 19.9 mmHg (35.0-45.0); Puncture Site LRA; pH, Arterial 7.57 (7.35-7.45)
[2020-02-26 07:12] LABS: ALV-art Gradient 134.825 (0-20)
[2020-02-26] MEDS: Famotidine/PF 20 mg/2ml Vial SLOW IVP SCH ×2 (08:23→19:30)
[2020-02-26] MEDS ORDERED: NPH, Human Insulin Isophane 300 UNIT/3 ML VIAL SC SCH ×2 (09:00→21:00)
--- NOTE | 2020-02-26 09:51 | PRG ---
DATE OF SERVICE: 02/26/2020 CRITICAL CARE TIME: 35 minutes. SUBJECTIVE: The patient remains intubated in the prone position on mechanical ventilation. There have been no acute changes overnight. OBJECTIVE: VITAL SIGNS: His temperature is 99.1, pulse 67, and blood pressure 115/77. He is currently on norepinephrine drip at 3 mcg/minute, also receiving sodium bicarbonate drip, 24-hour intake was 3236 and output 1350. HEENT: Difficult to examine because he is in prone position. LUNGS: Crackles bilaterally. CARDIOVASCULAR: S1 and S2. Regular. ABDOMEN: Soft. EXTREMITIES: No edema. LABORATORY DATA: White blood cell count 13.6, hematocrit 38.6, and platelet count 59. A pH 7.57, pCO2 of 19, pO2 of 125 on bilevel rate 20, high pressure 28, low-pressure 20, blood pressure 14, and FiO2 of 40%. Sodium 134, potassium 3.9, chloride 104, CO2 of 19, BUN 25, creatinine 0.7, and glucose 234. ASSESSMENT: 1. COVID-19 with pneumonia. 2. Acute hypoxic respiratory failure. 3. Non-Q-wave myocardial infarction versus myocarditis from the COVID-19 pneumonia. PLAN: 1. We will try to place the patient in the supine position today and ventilate him that way as long as he can tolerate. 2. The patient has received steroids, convalescent plasma, IL-6 inhibitor but it was too far along to be eligible for remdesivir. The patient's prognosis is poor. We will follow. Job ID: [id number]
[2020-02-26] MEDS: fentaNYL Citrate/PF 2,000 MCG in Sodium Chloride 0.9% 60 ML IV SCH (10:40)
[2020-02-26] MEDS: Dextrose 5%-Lactated Ringers 1,000 ML IV SCH ×2 (10:41→22:48)
--- NOTE | 2020-02-26 11:27 | RAD ---
PORTABLE CHEST 1 VIEW: Date: 02/26/2020 Time: 0526 hours HISTORY: Pneumonia. Respiratory failure. COMPARISON: Previous day. FINDINGS/IMPRESSION: Mild interval improvement with infiltrates seen since the previous day's exam. Endotracheal and nasog astric tubes remain in place. POS: OFF
[2020-02-26] MEDS: HumaLOG 300 UNITS/3 ML VIAL SC PRN (16:04)
[2020-02-26] MEDS: Norepinephrine 8 MG/0.9% NS 250 ML IVPB SCH (22:54)
[2020-02-27] MEDS: Propofol 1,000 MG/100 ML VIAL IV PRN ×2 (02:08→05:25)
[2020-02-27] MEDS: HumaLOG 300 UNITS/3 ML VIAL SC PRN ×4 (02:19→16:54)
[2020-02-27 04:24] LABS: Band 13 % (5-11); Hemoglobin 11.2 g/dL (14.0-18.0); Hypochromia SLIGHT = 6-15 cells (100X) (0-5/hpf); Lymphocytes 3 % (21-51); MDiff Complete? YES; Mean Corpuscular HGB CONC 33.8 g/dL (32.0-36.0); Mean Corpuscular Hemoglobin 35.1 pg (27.0-31.0); Mean Platelet Volume 7.4 fL (7.4-10.4); Metamyelocyte 1 % (0-0); Monocytes 5 % (0-10); Neutrophil 78 % (42-75); Platelet Count 44 thou/uL (130-400); Platelet Morphology Comment Appears Decreased; White Blood Cell (WBC) Count 9.6 thou/uL (4.8-10.8)
[2020-02-27] MEDS: methylPREDNISolone Sod Succ/PF 125 MG/2 ML VIAL IVP SCH ×3 (05:24→16:55)
[2020-02-27] MEDS: Cefepime 2 GM in Sodium Chloride 0.9% 100 ML IVPB SCH ×2 (05:25→20:08)
--- NOTE | 2020-02-27 06:36 | PDOC.FM ---
- Subjective Subjective: NAEO per nurse. Patient intubated and sedated, still requiring levophed to maintain blood pressures - Objective MAR Reviewed: Yes Vital Signs & Weight: Vital Signs (12 hours) Pulse Resp BP Pulse Ox 02/27/20 05:29 18 02/27/20 04:00 18 02/27/20 03:27 62 102/65 02/27/20 02:00 18 02/27/20 01:17 59 L 97/60 02/27/20 01:09 57 L 18 95 02/27/20 00:00 18 02/26/20 22:25 59 L 88/57 L 02/26/20 22:00 18 02/26/20 20:00 96 02/26/20 19:58 18 02/26/20 18:32 64 109/71 02/26/20 18:31 66 20 98 Weight Admit Weight 92.533 kg Weight 93.2 kg Most Recent Monitor Data Heart Rate from ECG 60 NIBP 99/66 NIBP BP-Mean 77 Respiration from ECG 18 SpO2 90 I&O: 02/25/20 02/26/20 02/27/20 06:59 06:59 06:59 Intake Total 772.5 3236.0 1449.7 Output Total 360 1350 945 Balance 412.5 1886.0 504.7 Result Diagrams: 02/27/20 03:50 02/26/20 03:30 Phys Exam - Physical Examination Constitutional: NAD HEENT: sclera anicteric sedated and intubated Neck: no nodes, no JVD Respiratory: no wheezing respiratory crackles Cardiovascular: no significant murmur bradycardic Gastrointestinal: soft, non-tender Musculoskeletal: no edema, pulses present sedated, unable to assess Lymphatic: no nodes Skin: no rash, normal turgor Dx/Plan (1) 2019 novel coronavirus disease (COVID-19) Code(s): U07.1 - COVID-19 Status: Acute (2) Acute respiratory failure with hypoxia Code(s): J96.01 - ACUTE RESPIRATORY FAILURE WITH HYPOXIA Status: Acute (3) Bilateral pneumonia Code(s): J18.9 - PNEUMONIA, UNSPECIFIED ORGANISM Status: Acute (4) Cirrhosis Code(s): K74.60 - UNSPECIFIED CIRRHOSIS OF LIVER Status: Acute (5) NSTEMI (non-ST elevated myocardial infarction) Code(s): I21.4 - NON-ST ELEVATION (NSTEMI) MYOCARDIAL INFARCTION Status: Acute (6) Thrombocytopenia Code(s): D69.6 - THROMBOCYTOPENIA, UNSPECIFIED Status: Acute - Plan Plan: Hospital day: 3 Fluids: LR at 125 mL/hr. Drips: Levophed 3, propofol 15 Vent Settings: Bilevel 18 breaths/min, 24/14, Fio2 50 Lines/Tubes: ET,OT,Monreal catheter, right central femoral line, left peripheral IV in hand Urine output: 30-100ml/hr Disposition: DC in greater that 5 days, attempts will be made to transfer pt to [facility] when pt is more stable PCP: Johan Code: Full Prophylaxis: Pepcid Family: 2 guards per protocol Plan: This is an unfortunate 64 yo male with a pmh of cirrhosis, COPD, HTN, HLD , bipolar disorder who is currently incarcerated, here for Sepsis, COVID-19, and respiratory failure. Goals to obtain convalescent plasma for COVID treatment , continue ventilator support, and pressure support. Will address NSTEMI per cardiology recommendations. #Acute hypoxic hypercapneic respiratory failure on mechanical ventilation -Intubated, ventilator/respiratory support -Sedation: Propofol -Daily ABG and CXR -Will work to wean as appropriate -CXR today appears similar to yesterday #COVID 19 B/L PNA -S/P tocilizamab and convalescent plasma -Covering with cefepime for bacterial PNA as well due to recent hospitalization -Covid diagnosed on 02/18/20 -Did not qualify for remdesivir -Steroids 02/23 #Severe sepsis 2/2 above -Requiring levophed, MAPs 70s, titrate as BP tolerates #NSTEMI vs. Myocarditis 2/2 COVID -Type 1 vs. 2 NSTEMI vs. Myocarditis -Cardiology consulted and recommends no intervention or anticoaguation at this time 2/2 thrombocytopenia and COVID. Will wait for further cardiology recommendations #Anemia -Hb 11, stable -Goal 8-10 due to current ACS, monitor daily #Thrombocytopenia -Plt 44, stable -likely 2/2 cirrhosis -hold anticoagulation #Hyperglycemia, likely 2/2 steroids -Titrate up NPH, sliding scale to cover -Change D5LR to D5 since patient receiving OGT feeds -Goal <180 #Lactic acidosis #QTc prolongation -Will monitor, Mag 2.1, potassium 3.9 #Cirrhosis -Hep C Ab positive, pending RNA PCR CHRONIC ILLNESSES COPD -Managed as above HTN -Hold any BP meds for the time being CAD -Continue aspirin and atorvastatin HLD -As with CAD Bipolar -Hold meds for now give QTc prolongation Hx of meth abuse Former smoker Addendum - Attending - Attending Attestation Date/Time: 02/27/20 3038 I personally evaluated the patient and discussed the management with Dr. Buenrostro. I agree with the History, Examination, Assessment and Plan documented above with any addition or exceptions noted below. Adjusting vent settings per pulm. increased fluids to 125 mL/hr due to decreased UOP. Continue supportive care.
[2020-02-27 07:21] LABS: Actual Bicarbonate (HCO3a) 20.1 mEq/L (22-28); Base Excess (BEa) -4.4 mEq/L (-2.0 to +3.0); CO2 Tension 35.1 mmHg (35.0-45.0); Calcium, Ionized (arterial) 1.18 mmol/L (1.12-1.30); Carboxyhemoglobin (COHb) 0.2 gm% (0.0-3.0); Hemoglobin (Hb) 11.9 g/dL (14.0-18.0); O2 Tension (PaO2), arterial 72.1 mmHg (> 80.0); Potassium - ABG Lab 4.62 mmol/L (3.70-5.30); pH, Arterial 7.38 (7.35-7.45)
[2020-02-27 07:23] LABS: ALV-art Gradient 169.225 (0-20); Puncture Site RRA
--- NOTE | 2020-02-27 08:12 | RAD ---
CHEST 1 VIEW: HISTORY: Followup pneumonia. COMPARISON: 02/16/2020 and 02/24/2020. FINDINGS: Again noted are bilateral alveolar and ground-glass opacity changes primarily in the left mid lung zo ne and right upper lobe which show improvement when compared to the prior study. NG tube and endotra cheal tubes remain in place. IMPRESSION: Improving bilateral pneumonia from prior study. POS: RRE
--- NOTE | 2020-02-27 08:51 | PRG ---
DATE OF SERVICE: 02/27/2020 TIME SPENT: 35 minutes of critical care time. SUBJECTIVE: This patient remains intubated in a supine position on mechanical ventilation. There has been no acute changes overnight. OBJECTIVE: VITAL SIGNS: Temperature 98.8, pulse 60, and blood pressure 99/66. 24-hour intake 1449, output 945. HEENT: Unremarkable. NECK: No JVD. LUNGS: Crackles. CARDIAC: S1 and S2. Slightly bradycardic. ABDOMEN: Soft. EXTREMITIES: No edema. LABORATORY DATA: White blood cell count 9.6, hematocrit 33.3, and platelet count 44. The pH 7.3, pCO2 of 35, and pO2 of 72. Chemistry has not back. C-reactive protein has gone down to 0.5. IMAGING STUDIES: Chest x-ray demonstrates improved aeration in the bilateral lung allen. ASSESSMENT: 1. COVID-19 infection with pneumonia and acute respiratory failure, requiring mechanical ventilation. 2. Non-Q-wave myocardial infarction. 3. Chronic thrombocytopenia. PLAN: 1. The patient has received convalescent plasma, steroids, and IL-6 inhibitor. He was not eligible to receive remdesivir. 2. His OK is just being treated conservatively as he was not a candidate to go to the cardiac catheterization lab secondary to COVID-19 pneumonia. 3. He is not weanable at this time. I have gone up on his pressures on the ventilator because of low tidal volumes. 4. Continue enteral tube feeds. Job ID: [id number]
[2020-02-27] MEDS: Famotidine/PF 20 mg/2ml Vial SLOW IVP SCH ×2 (09:50→20:08)
[2020-02-27] MEDS: Dextrose 5%-Lactated Ringers 1,000 ML IV SCH (10:19)
[2020-02-27 12:36] LABS: Hemoglobin A1c 4.6 % (4.0-6.0)
[2020-02-27] MEDS: Lactated Ringer's 1,000 ML IV SCH ×2 (12:40→20:07)
[2020-02-27] MEDS: NPH, Human Insulin Isophane 300 UNIT/3 ML VIAL SC SCH ×2 (13:17→20:08)
--- NOTE | 2020-02-27 17:13 | PDOC.CPN ---
- Subjective Date: 02/27/20 Time: 08:30 Interval history: The pt seen and examined. No overnight events. This is chart review - Objective Allergies/Adverse Reactions: Allergies Allergy/AdvReac Type Severity Reaction Status Date / Time No Known Allergies Allergy Verified 02/25/20 00:51 Visit Medications: Current Medications Albuterol/Ipratropium (Duoneb) 3 ml NEB [id number] MYRIAM Last Admin: 02/27/20 14:15 Dose: 3 ml Dextrose/Water (Dextrose 50%) 25 gm SLOW IVP PRN PRN PRN Reason: Hypoglycemia Famotidine (Pepcid) 20 mg SLOW IVP BID MYRIAM Last Admin: 02/27/20 09:50 Dose: 20 mg Glucagon (Glucagon) 1 mg IM PRN PRN PRN Reason: Hypoglycemia Fentanyl Citrate 2,000 mcg/ (Sodium Chloride) 100 mls @ 0 mls/hr IV INF MYRIAM; Protocol Stop: 03/25/20 20:03 Last Admin: 02/26/20 10:40 Dose: 100 mls Fentanyl Citrate (Fentanyl Bolus) 250 mls @ 0 mls/hr IVPB PRN PRN PRN Reason: Breakthrough pain/agitation Stop: 03/25/20 21:24 Last Admin: 02/27/20 10:52 Dose: 250 mls Potassium Chloride 40 meq/ (Sodium Chloride) 270 mls @ 135 mls/hr IVPB ASDIR PRN PRN Reason: FOR SERUM K+ 2.5 - 3.5 Potassium Chloride 40 meq/ (Device) 100 mls @ 50 mls/hr IVPB ASDIR PRN PRN Reason: FOR SERUM K+ 2.5 - 3.5 Magnesium Sulfate 1 gm/ Sodium (Chloride) 102 mls @ 102 mls/hr IV PRN PRN PRN Reason: MAG LEVEL 1.4 - 2.0 Magnesium Sulfate 2 gm/ Device 50 mls @ 50 mls/hr IVPB ASDIR PRN PRN Reason: MAGNESIUM < 1.4 Potassium Phosphate 9 mmol/ (Sodium Chloride) 103 mls @ 25.75 mls/hr IVPB ASDIR PRN PRN Reason: Phosphate 1.0-1.8 Potassium Phosphate 12 mmol/ (Sodium Chloride) 254 mls @ 63.5 mls/hr IV ASDIR PRN PRN Reason: Serum phosphate 0.5-0.9 Potassium Phosphate 15 mmol/ (Sodium Chloride) 255 mls @ 63.75 mls/hr IV ASDIR PRN PRN Reason: Serum Phos < 0.5 Norepinephrine Bitartrate (Levophed) 250 mls @ 0 mls/hr IVPB INF MYRIAM; Protocol Last Admin: 02/26/20 22:54 Dose: 250 mls Dextrose/Water (D5w) 1,000 mls @ 0 mls/hr IV .Q0M PRN PRN Reason: Hypoglycemia Lactated Ringer's (Lactated Ringer's) 1,000 mls @ 125 mls/hr IV .Q8H [facility] Last Admin: 02/27/20 12:40 Dose: 1,000 mls Cefepime HCl 2 gm/ Sodium (Chloride) 100 mls @ 200 mls/hr IVPB BID MYRIAM Insulin Human Lispro (Humalog) 0 units SC .MILD SLIDING SCALE PRN PRN Reason: Mild Correctional Scale Last Admin: 02/27/20 16:54 Dose: 3 unit Insulin Human NPH (Humulin N) 16 unit SC BID [facility] Last Admin: 02/27/20 13:17 Dose: 16 unit Lorazepam (Ativan) 2 mg SLOW IVP Q1H PRN PRN Reason: Breakthrough agitation Stop: 03/25/20 21:24 Magnesium Oxide (Magnesium Oxide) 400 mg PO BIDPRN PRN PRN Reason: FOR SERUM MAG 1.4 - 2.0 Magnesium Oxide (Magnesium Oxide) 800 mg PO PRN PRN PRN Reason: FOR SERUM MAG < 1.4 Methylprednisolone Sodium Succinate (Solu-Medrol) 60 mg IVP Q6HR [facility] Last Admin: 02/27/20 16:55 Dose: 60 mg Miscellaneous Medication (Ccu Electrolyte Replacement) 1 each IVPB ONE MYRIAM Stop: 03/25/20 21:47 Miscellaneous Medication (Ventilator Sedation Protocol) 1 each FS ONE MYRIAM Stop: 03/25/20 21:47 Miscellaneous Medication (Phos-Nak) 1 pkt PO TIDPRN PRN PRN Reason: FOR PHOS LEVEL 1.0 - 1.8 Miscellaneous Medication (Phos-Nak) 2 pkt PO TIDPRN PRN PRN Reason: FOR PHOS LEVEL 0.5 - 1.0 Morphine Sulfate (Morphine) 2 mg SLOW IVP Q1H PRN PRN Reason: BREAKTHROUGH PAIN/Agitation Stop: 03/25/20 21:24 Ccu Electrolyte (Replacement Protocol) 0 each FS PRN PRN PRN Reason: FOR ELECTROLYTE REPLACEMENT Potassium Chloride (K-Dur) 40 meq PO ASDIR PRN PRN Reason: FOR SERUM K+ 2.5 - 3.5 Potassium Chloride (Klor-Con) 40 meq PER TUBE ASDIR PRN PRN Reason: FOR SERUM K+ 2.5-3.5 Propofol (Diprivan) 1,000 mg IV INF PRN; Protocol PRN Reason: TO ACHIEVE GOAL RASS Stop: 03/25/20 21:24 Last Admin: 02/27/20 05:25 Dose: 1,000 mg Propofol (Diprivan Bolus) 20 mg IV Q5MIN PRN PRN Reason: BREAKTHROUGH AGITATION Stop: 03/25/20 21:24 Sodium Chloride (Flush - Normal Saline) 10 ml IVF Q12HR MYRIAM Last Admin: 02/27/20 09:51 Dose: 10 ml Sodium Chloride (Flush - Normal Saline) 10 ml IVF PRN PRN PRN Reason: Saline Flush Vecuronium [place] (Norcuron) 10 mg IVP Q30MIN PRN PRN Reason: Agitation Last Admin: 02/26/20 16:19 Dose: 10 mg Vital Signs & Weight: Vital Signs Pulse Resp Pulse Ox 02/27/20 16:00 18 02/27/20 14:16 60 02/27/20 14:00 18 02/27/20 12:00 18 02/27/20 10:42 57 L 02/27/20 10:00 18 02/27/20 08:00 18 96 02/27/20 07:15 62 02/27/20 05:29 18 Admit Weight 204 lb Weight 205 lb 7.533 oz - Labs Result Diagrams: 02/27/20 03:50 02/26/20 03:30 Troponin/CKMB CK-MB (CK-2) 22.0 ng/mL (0-6.6) H* 02/27/20 03:50 Troponin I 8.080 ng/mL (< 0.028) H* 02/27/20 03:50 - Telemetry Sinus rhythms and dysrhythmias: sinus rhythm - Assessment/Plan Assessment/Plan: 1. COVID-19 infection with PNA - On Vent 2. NSTEMI vs Myocarditis 2/2 COVID - not candidate for cardiac cath and cont. medical tx only due to hx of Thrombocytopenia 3. Severe Sepsis - on Levophed 4. HTN 5. HLD 6. hx of Cirrhosis 7. COPD 8. Hx of meth abuse and ex-smoker MAR reviewed Chart reviewed. I agree with the A/P by the REHABILITATION INSPECTOR. It is unclear if this is myocarditis secondary to Covid-19 of [place] due to the cardiac demand from the virus and PNA. Once the echocardiogram is performed this may give us better insite. At this time I agree with the present management. elif
[2020-02-28] MEDS: methylPREDNISolone Sod Succ/PF 125 MG/2 ML VIAL IVP SCH ×5 (00:11→23:52)
[2020-02-28] MEDS: Propofol 1,000 MG/100 ML VIAL IV PRN ×6 (00:44→23:52)
[2020-02-28 04:21] LABS: #Basophils 0.1 thou/uL (0.0-0.2); #Lymphocytes 0.5 thou/uL (1.20-3.40); #Monocytes 0.4 thou/uL (0.11-0.59); #Neutrophils 3.8 thou/uL (1.40-6.50); %Basophils 1.1 % (0.0-1.0); %Eosinophils 0.1 % (0.0-10.0); %Lymphocytes 9.7 % (21.0-51.0); %Neutrophils 81.1 % (42.0-75.0); Hemoglobin 10.8 g/dL (14.0-18.0); Mean Corpuscular HGB CONC 35.1 g/dL (32.0-36.0); Mean Corpuscular Hemoglobin 35.9 pg (27.0-31.0); Mean Platelet Volume 8.8 fL (7.4-10.4); Platelet Count 37 thou/uL (130-400); Red Blood Cell (RBC) Count 3.01 mill/uL (4.70-6.10); White Blood Cell (WBC) Count 4.7 thou/uL (4.8-10.8)
[2020-02-28 04:32] LABS: ALT (SGPT) 30 U/L (8-55); AST (SGOT) 67 U/L (5-34); Albumin 2.5 g/dL (3.4-4.8); Alkaline Phosphatase 98 U/L (40-110); Anion Gap 9 mmol/L (10-20); BUN (Urea Nitrogen) 37 mg/dL (8.4-25.7); Bilirubin, Total 1.7 mg/dL (0.2-1.2); Calc. Creatinine Clearance 133 mL/min (70-130); Calcium 7.7 mg/dL (7.8-10.44); Carbon Dioxide 24 mmol/L (23-31); Chloride 107 mmol/L (98-107); Estimated GFR-MDRD Greater than 90; Globulin 2.8 g/dL (2.4-3.5); Glucose 239 mg/dL (80-115); Potassium 4.6 mmol/L (3.5-5.1); Protein, Total 5.3 g/dL (5.8-8.1); Sodium 135 mmol/L (136-145)
--- NOTE | 2020-02-28 06:57 | PDOC.FM ---
- Subjective Subjective: Nurse states patient is having apneic episodes despite being on the ventilator when sedation is turned off. Still requiring levophed. Unchanged clinically overall. - Objective Vital Signs & Weight: Vital Signs (12 hours) Pulse Resp BP Pulse Ox 02/28/20 06:00 18 02/28/20 04:00 18 02/28/20 02:18 50 L 02/28/20 02:00 18 02/28/20 00:13 53 L 103/64 02/28/20 00:00 18 02/27/20 22:04 53 L 02/27/20 22:00 18 02/27/20 20:00 18 96 Weight Admit Weight 92.533 kg Weight 93.44 kg Most Recent Monitor Data Heart Rate from ECG 48 NIBP 99/59 NIBP BP-Mean 72 Respiration from ECG 18 SpO2 100 I&O: 02/26/20 02/27/20 02/28/20 06:59 06:59 06:59 Intake Total 3236.0 1449.7 2842.6 Output Total 1350 945 975 Balance 1886.0 504.7 1867.6 Result Diagrams: 02/28/20 03:42 02/28/20 03:42 Phys Exam - Physical Examination Constitutional: NAD no resp distress, light crackles bradycardic Gastrointestinal: soft, no distention hypoactive bowel sounds Musculoskeletal: no edema Deviation from normal: multiple tattoos Dx/Plan (1) 2018 novel coronavirus disease (COVID-19) Code(s): U07.1 - COVID-19 Status: Acute (2) Acute respiratory failure with hypoxia Code(s): J96.01 - ACUTE RESPIRATORY FAILURE WITH HYPOXIA Status: Acute (3) Bilateral pneumonia Code(s): J18.9 - PNEUMONIA, UNSPECIFIED ORGANISM Status: Acute (4) Cirrhosis Code(s): K74.60 - UNSPECIFIED CIRRHOSIS OF LIVER Status: Acute (5) NSTEMI (non-ST elevated myocardial infarction) Code(s): I21.4 - NON-ST ELEVATION (NSTEMI) MYOCARDIAL INFARCTION Status: Acute (6) Thrombocytopenia Code(s): D69.6 - THROMBOCYTOPENIA, UNSPECIFIED Status: Acute - Plan Plan: Hospital day: 4 Fluids: LR at 125 mL/hr. Drips: Levophed 2, propofol 15 Vent Settings: Bilevel 18/18 breaths/min, TV 474 cc, 24/14, Fio2 50% Lines/Tubes: ET,OT,Monreal catheter, right central femoral line, left peripheral IV in hand Urine output: 30-50ml/hr Disposition: DC in greater that 5 days, attempts will be made to transfer pt to [facility] when pt is more stable PCP: Johan Code: Full Prophylaxis: Pepcid Family: 2 guards per protocol Prognosis: Guarded 02/27 Plan: -Continue monitoring fluid status & UO closely madhav in setting of heart failure -Inc NPH for hyperglycemia -Continue supportive care -Reglan for gastric hypomotility #Acute hypoxic hypercapneic respiratory failure 2/2 COVID PNA on mechanical ventilation -Intubated, ventilator/respiratory support -Sedation: Propofol, continue sedation vacation -Daily ABG and CXR -Will work to wean as appropriate -CXR today appears mildly improved #COVID 19 B/L PNA -S/P tocilizamab and convalescent plasma -Covering with cefepime for bacterial PNA as well due to recent hospitalization -Covid diagnosed on 02/18/20 -Did not qualify for remdesivir -Steroids 02/23 #Severe sepsis 2/2 above -Requiring levophed, MAPs 70s, titrate as BP tolerates #NSTEMI vs. Myocarditis 2/2 COVID -Type 1 vs. 2 NSTEMI vs. Myocarditis -Cardiology consulted and recommends no intervention or anticoaguation at this time 2/2 thrombocytopenia and COVID. Will wait for further cardiology recommendations #Anemia -Hb 11, stable -Goal 8-10 due to current ACS, monitor daily #Thrombocytopenia -Stable -likely 2/2 cirrhosis -No signs of active bleeding, hold anticoagulation #Hyperglycemia, likely 2/2 steroids -Titrate up NPH, sliding scale to cover -Change D5LR to D5 since patient receiving OGT feeds -Goal <180 #Lactic acidosis #QTc prolongation -Resolved, will monitor #Cirrhosis -Child-[place] class B -Hep C Ab positive, pending RNA PCR CHRONIC ILLNESSES COPD -Managed as above HTN -Hold any BP meds for the time being CAD -Continue aspirin and atorvastatin HLD -As with CAD Bipolar -Hold meds for now give QTc prolongation Hx of meth abuse Former smoker Addendum - Attending - Attending Attestation Date/Time: 02/28/20 0338 I personally evaluated the patient and discussed the management with Dr. Buenrostro. I agree with the History, Examination, Assessment and Plan documented above with any addition or exceptions noted below. Apneic episodes off sedation. Awaiting pulm recs. Palliative care to help with CODE status. Prognosis guarded.
[2020-02-28 07:22] LABS: Actual Bicarbonate (HCO3a) 22.2 mEq/L (22-28); Base Excess (BEa) -2.2 mEq/L (-2.0 to +3.0); CO2 Tension 36.6 mmHg (35.0-45.0); Carboxyhemoglobin (COHb) 0.1 gm% (0.0-3.0); O2 Tension (PaO2), arterial 110.9 mmHg (> 80.0); Potassium - ABG Lab 4.52 mmol/L (3.70-5.30)
[2020-02-28 07:24] LABS: Puncture Site RRA
--- NOTE | 2020-02-28 09:02 | RAD ---
PORTABLE CHEST: Date: 02/28/2020 HISTORY: Respiratory distress and pneumonia. COMPARISON: Prior day's examination. FINDINGS: There appears to be some improvement to the bilateral infiltrative lung changes as compared to that e xamination. Less confluent change in the left lung and definite improvement to some of the right lung changes. Endotracheal and NG tube positions are unchanged. IMPRESSION: Improving bilateral infiltrates. POS: XOCHITL
--- NOTE | 2020-02-28 09:06 | PRG ---
DATE OF SERVICE: 02/28/2020 35 minutes of critical care time. SUBJECTIVE: The patient is intubated on mechanical ventilation, but no change overnight. OBJECTIVE: VITAL SIGNS: Temperature 95.5, pulse 52, blood pressure 103/63. 24-hour intake 2842, output 975. HEENT: Unremarkable. NECK: No JVD. LUNGS: Fairly clear anteriorly. CARDIAC: S1 and S2. Slightly bradycardic. ABDOMEN: Soft and nontender. EXTREMITIES: No edema. LABORATORY DATA: White blood cell count 4.7, hematocrit 30, and platelet count 37. PH 7.40, pCO2 of 36, PO2 of 110 on bilevel 24/, FiO2 of 50%. Sodium 135, potassium 4.6, chloride 107, CO2 of 24, BUN 37, creatinine 0.7, glucose 239. ASSESSMENT: 1. COVID-19 pneumonia with acute respiratory failure, requiring mechanical ventilation. 2. Non-Q-wave myocardial infarction. 3. Chronic thrombocytopenia. PLAN: The patient has received convalescent plasma, steroids, IL-6 inhibitor. His PA is being treated conservatively. He is not weanable at this time. I will add Reglan because of increased residuals on his tube feeds. Job ID: [id number]
[2020-02-28] MEDS: Metoclopramide HCl 10 MG/2 ML VIAL IVP SCH ×3 (09:21→19:29)
[2020-02-28] MEDS: Cefepime 2 GM in Sodium Chloride 0.9% 100 ML IVPB SCH ×2 (09:21→19:33)
[2020-02-28] MEDS: Famotidine/PF 20 mg/2ml Vial SLOW IVP SCH (09:21)
[2020-02-28] MEDS: Norepinephrine 8 MG/0.9% NS 250 ML IVPB SCH (09:22)
[2020-02-28] MEDS: NPH, Human Insulin Isophane 300 UNIT/3 ML VIAL SC SCH ×2 (09:23→19:29)
[2020-02-28] MEDS: HumaLOG 300 UNITS/3 ML VIAL SC PRN (09:24)
[2020-02-28] MEDS: Lactated Ringer's 1,000 ML IV SCH ×2 (10:41→23:53)
[2020-02-28] MEDS: fentaNYL Citrate/PF 2,000 MCG in Sodium Chloride 0.9% 60 ML IV SCH (12:08)
[2020-02-28 13:38] LABS: HCV log10 3.936 (.); Hep C PCR-Quant 8630 IU/mL (.)
[2020-02-28] MEDS ORDERED: HumaLOG 300 UNITS/3 ML VIAL SC PRN ×2 (14:25→14:27)
[2020-02-28] MEDS ORDERED: Albumin 5% 250 ML ONE (14:37)
[2020-02-28] MEDS: Vecuronium 10 MG VIAL IVP PRN ×2 (15:50→19:33)
--- NOTE | 2020-02-28 16:28 | PDOC.CPN ---
- Subjective Date: 02/28/20 Time: 08:00 Interval history: The pt seen and examined. No overnight events. This is chart review due to COVID 19 positive - Objective Allergies/Adverse Reactions: Allergies Allergy/AdvReac Type Severity Reaction Status Date / Time No Known Allergies Allergy Verified 02/25/20 00:51 Visit Medications: Current Medications Albumin Human (Albumin 5%) 12.5 gm IVPB [facility] Stop: 02/29/20 16:37 Last Admin: 02/28/20 15:00 Dose: 12.5 gm Albumin Human (Albumin 25%) 25 gm IVPB 1999 [facility] Stop: 02/28/20 22:00 Albuterol/Ipratropium (Duoneb) 3 ml NEB [id number] [facility] Last Admin: 02/28/20 14:30 Dose: 3 ml Dextrose/Water (Dextrose 50%) 25 gm SLOW IVP PRN PRN PRN Reason: Hypoglycemia Famotidine (Pepcid) 20 mg PER TUBE BID [facility] Glucagon (Glucagon) 1 mg IM PRN PRN PRN Reason: Hypoglycemia Fentanyl Citrate 2,000 mcg/ (Sodium Chloride) 100 mls @ 0 mls/hr IV INF [facility]; Protocol Stop: 03/25/20 20:03 Last Admin: 02/28/20 12:08 Dose: 100 mls Fentanyl Citrate (Fentanyl Bolus) 250 mls @ 0 mls/hr IVPB PRN PRN PRN Reason: Breakthrough pain/agitation Stop: 03/25/20 21:24 Last Admin: 02/27/20 10:52 Dose: 250 mls Potassium Chloride 40 meq/ (Sodium Chloride) 270 mls @ 135 mls/hr IVPB ASDIR PRN PRN Reason: FOR SERUM K+ 2.5 - 3.5 Potassium Chloride 40 meq/ (Device) 100 mls @ 50 mls/hr IVPB ASDIR PRN PRN Reason: FOR SERUM K+ 2.5 - 3.5 Magnesium Sulfate 1 gm/ Sodium (Chloride) 102 mls @ 102 mls/hr IV PRN PRN PRN Reason: MAG LEVEL 1.4 - 2.0 Magnesium Sulfate 2 gm/ Device 50 mls @ 50 mls/hr IVPB ASDIR PRN PRN Reason: MAGNESIUM < 1.4 Potassium Phosphate 9 mmol/ (Sodium Chloride) 103 mls @ 25.75 mls/hr IVPB ASDIR PRN PRN Reason: Phosphate 1.0-1.8 Potassium Phosphate 12 mmol/ (Sodium Chloride) 254 mls @ 63.5 mls/hr IV ASDIR PRN PRN Reason: Serum phosphate 0.5-0.9 Potassium Phosphate 15 mmol/ (Sodium Chloride) 255 mls @ 63.75 mls/hr IV ASDIR PRN PRN Reason: Serum Phos < 0.5 Norepinephrine Bitartrate (Levophed) 250 mls @ 0 mls/hr IVPB INF [facility]; Protocol Last Admin: 02/28/20 09:22 Dose: 250 mls Dextrose/Water (D5w) 1,000 mls @ 0 mls/hr IV .Q0M PRN PRN Reason: Hypoglycemia Cefepime HCl 2 gm/ Sodium (Chloride) 100 mls @ 200 mls/hr IVPB BID [facility] Last Admin: 02/28/20 09:21 Dose: 100 mls Lactated Ringer's (Lactated Ringer's) 1,000 mls @ 70 mls/hr IV .[id number] [facility] Last Admin: 02/28/20 10:41 Dose: 1,000 mls Insulin Human Lispro (Humalog) 0 units SC .AGGRESSIVE SLIDING PRN PRN Reason: Aggressive Correctional Scale Insulin Human NPH (Humulin N) 20 unit SC BID [facility] Last Admin: 02/28/20 09:23 Dose: 20 unit Lorazepam (Ativan) 2 mg SLOW IVP Q1H PRN PRN Reason: Breakthrough agitation Stop: 03/25/20 21:24 Magnesium Oxide (Magnesium Oxide) 400 mg PO BIDPRN PRN PRN Reason: FOR SERUM MAG 1.4 - 2.0 Magnesium Oxide (Magnesium Oxide) 800 mg PO PRN PRN PRN Reason: FOR SERUM MAG < 1.4 Methylprednisolone Sodium Succinate (Solu-Medrol) 60 mg IVP Q6HR [facility] Last Admin: 02/28/20 11:57 Dose: 60 mg Metoclopramide HCl (Reglan) 10 mg IVP Q6H [facility] Last Admin: 02/28/20 14:31 Dose: 10 mg Miscellaneous Medication (Ccu Electrolyte Replacement) 1 each IVPB ONE [facility] Stop: 03/25/20 21:47 Miscellaneous Medication (Ventilator Sedation Protocol) 1 each FS ONE [facility] Stop: 03/25/20 21:47 Miscellaneous Medication (Phos-Nak) 1 pkt PO TIDPRN PRN PRN Reason: FOR PHOS LEVEL 1.0 - 1.8 Miscellaneous Medication (Phos-Nak) 2 pkt PO TIDPRN PRN PRN Reason: FOR PHOS LEVEL 0.5 - 1.0 Morphine Sulfate (Morphine) 2 mg SLOW IVP Q1H PRN PRN Reason: BREAKTHROUGH PAIN/Agitation Stop: 03/25/20 21:24 Ccu Electrolyte (Replacement Protocol) 0 each FS PRN PRN PRN Reason: FOR ELECTROLYTE REPLACEMENT Potassium Chloride (K-Dur) 40 meq PO ASDIR PRN PRN Reason: FOR SERUM K+ 2.5 - 3.5 Potassium Chloride (Klor-Con) 40 meq PER TUBE ASDIR PRN PRN Reason: FOR SERUM K+ 2.5-3.5 Propofol (Diprivan) 1,000 mg IV INF PRN; Protocol PRN Reason: TO ACHIEVE GOAL RASS Stop: 03/25/20 21:24 Last Admin: 02/28/20 14:31 Dose: 1,000 mg Propofol (Diprivan Bolus) 20 mg IV Q5MIN PRN PRN Reason: BREAKTHROUGH AGITATION Stop: 03/25/20 21:24 Sodium Chloride (Flush - Normal Saline) 10 ml IVF Q12HR [facility] Last Admin: 02/28/20 09:22 Dose: 10 ml Sodium Chloride (Flush - Normal Saline) 10 ml IVF PRN PRN PRN Reason: Saline Flush Vecuronium [place] (Norcuron) 10 mg IVP Q30MIN PRN PRN Reason: Agitation Last Admin: 02/28/20 15:50 Dose: 10 mg Vital Signs & Weight: Vital Signs Pulse Resp BP Pulse Ox 02/28/20 16:00 18 02/28/20 15:54 123 H 02/28/20 14:38 63 104/63 02/28/20 14:00 18 02/28/20 12:00 18 02/28/20 10:19 52 L 106/64 02/28/20 10:00 18 02/28/20 08:00 18 96 02/28/20 07:23 48 L 114/58 L 02/28/20 07:00 100 02/28/20 06:00 18 Admit Weight 204 lb Weight 206 lb - Labs Result Diagrams: 02/28/20 03:42 02/28/20 03:42 Troponin/CKMB CK-MB (CK-2) 22.0 ng/mL (0-6.6) H* 02/27/20 03:50 Troponin I 8.080 ng/mL (< 0.028) H* 02/27/20 03:50 - Telemetry Sinus rhythms and dysrhythmias: sinus rhythm - Assessment/Plan Assessment/Plan: 1. COVID-19 infection with PNA - On Vent 2. NSTEMI vs Myocarditis 2/2 COVID - not candidate for cardiac cath and cont. medical tx only due to hx of Thrombocytopenia 3. Severe Sepsis - on Levophed 4. HTN 5. HLD 6. hx of Cirrhosis 7. COPD 8. Hx of meth abuse and ex-smoker MAR reviewed Pt. records eval. I agree with the a/P by the CLOTH EXAMINER. This afternoon he has developed Afib with RVR after a hypoxic event. I will add amiodarone to see if he will convert to sinus. He is a poor candidate for anticoagulation due to thrombocytopenia. the BP is on the low side and he may not tolerate diltiazem. I will try amiodarone but will need to monitor carefully as the pt is on propofol and this in combination can prolong the QT further. He also has a history of cirrhosis and amiodarone group home is not a good option. He is edematous and albumin has been given, he will receive another dose. Poor prognosis.
[2020-02-28] MEDS: Amiodarone 450 MG in Dextrose 5% in Water 250 ML IVPB SCH (18:18)
[2020-02-28] MEDS: Famotidine 20 MG TAB PER TUBE SCH (19:30)
[2020-02-28] MEDS ORDERED: Albumin 25% 25 GM/100 ML BOT IVPB SCH (20:00)
[2020-02-29] MEDS: Amiodarone 450 MG in Dextrose 5% in Water 250 ML IVPB SCH (01:58)
[2020-02-29] MEDS: Metoclopramide HCl 10 MG/2 ML VIAL IVP SCH ×4 (01:59→20:32)
[2020-02-29] MEDS: Propofol 1,000 MG/100 ML VIAL IV PRN ×4 (03:49→20:50)
[2020-02-29 04:12] LABS: #Eosinphils 0.1 thou/uL (0.0-0.7); #Lymphocytes 0.3 thou/uL (1.20-3.40); #Monocytes 0.3 thou/uL (0.11-0.59); #Neutrophils 4.5 thou/uL (1.40-6.50); %Basophils 0.3 % (0.0-1.0); %Eosinophils 1.5 % (0.0-10.0); %Lymphocytes 4.8 % (21.0-51.0); %Monocytes 6.6 % (0.0-10.0); %Neutrophils 86.8 % (42.0-75.0); Hemoglobin 10.3 g/dL (14.0-18.0); Mean Corpuscular HGB CONC 35.2 g/dL (32.0-36.0); Mean Corpuscular Hemoglobin 36.2 pg (27.0-31.0); Mean Platelet Volume 9.3 fL (7.4-10.4); Platelet Count 37 thou/uL (130-400); RBC Distribution Width 14.2 % (11.5-14.5); Red Blood Cell (RBC) Count 2.84 mill/uL (4.70-6.10); White Blood Cell (WBC) Count 5.1 thou/uL (4.8-10.8)
[2020-02-29 04:34] LABS: ALT (SGPT) 29 U/L (8-55); AST (SGOT) 49 U/L (5-34); Albumin 3.2 g/dL (3.4-4.8); Alkaline Phosphatase 90 U/L (40-110); Anion Gap 9 mmol/L (10-20); BUN (Urea Nitrogen) 40 mg/dL (8.4-25.7); Calc. Creatinine Clearance 130 mL/min (70-130); Carbon Dioxide 25 mmol/L (23-31); Chloride 106 mmol/L (98-107); Estimated GFR-MDRD Greater than 90; Globulin 2.5 g/dL (2.4-3.5); Glucose 264 mg/dL (80-115); Protein, Total 5.7 g/dL (5.8-8.1); Sodium 135 mmol/L (136-145)
[2020-02-29] MEDS: HumaLOG 300 UNITS/3 ML VIAL SC PRN ×3 (05:44→18:06)
[2020-02-29] MEDS: methylPREDNISolone Sod Succ/PF 125 MG/2 ML VIAL IVP SCH ×4 (05:44→23:57)
[2020-02-29 07:09] LABS: Actual Bicarbonate (HCO3a) 21.8 mEq/L (22-28); Base Excess (BEa) -2.5 mEq/L (-2.0 to +3.0); Carboxyhemoglobin (COHb) 0.6 gm% (0.0-3.0); Hemoglobin (Hb) 11.3 g/dL (14.0-18.0); O2 Tension (PaO2), arterial 100.2 mmHg (> 80.0); Potassium - ABG Lab 4.77 mmol/L (3.70-5.30)
[2020-02-29 07:18] LABS: Puncture Site RRAD
--- NOTE | 2020-02-29 07:47 | PDOC.FM ---
- Subjective Subjective: Developed afib with RVR after hypoxic event yesterday so started on amiodarone by cardiology Since then no other changes last night - Objective MAR Reviewed: Yes Vital Signs & Weight: Vital Signs (12 hours) Pulse Resp BP Pulse Ox 02/29/20 07:14 71 02/29/20 06:00 18 02/29/20 04:00 18 02/29/20 03:41 72 115/71 02/29/20 02:00 18 02/29/20 01:56 75 02/29/20 00:12 77 101/75 02/29/20 00:00 18 02/28/20 22:00 18 02/28/20 21:20 86 02/28/20 20:00 18 100 Weight Admit Weight 92.533 kg Weight 98 kg Most Recent Monitor Data Heart Rate from ECG 72 NIBP 113/73 NIBP BP-Mean 86 Respiration from ECG 18 SpO2 100 I&O: 02/28/20 02/29/20 03/01/20 06:59 06:59 06:59 Intake Total 2842.6 4263.0 Output Total 975 1170 25 Balance 1867.6 3093.0 -25 Result Diagrams: 02/29/20 03:45 02/29/20 03:45 Phys Exam - Physical Examination Constitutional: NAD HEENT: moist MMs, sclera anicteric Respiratory: no wheezing, no rhonchi Cardiovascular: RRR, no significant murmur Gastrointestinal: soft, non-tender Musculoskeletal: pulses present, edema present cannot assess Skin: no rash, normal turgor Dx/Plan (1) 2018 novel coronavirus disease (COVID-19) Code(s): U07.1 - COVID-19 Status: Acute (2) Acute respiratory failure with hypoxia Code(s): J96.01 - ACUTE RESPIRATORY FAILURE WITH HYPOXIA Status: Acute (3) Bilateral pneumonia Code(s): J18.9 - PNEUMONIA, UNSPECIFIED ORGANISM Status: Acute (4) Cirrhosis Code(s): K74.60 - UNSPECIFIED CIRRHOSIS OF LIVER Status: Acute (5) NSTEMI (non-ST elevated myocardial infarction) Code(s): I21.4 - NON-ST ELEVATION (NSTEMI) MYOCARDIAL INFARCTION Status: Acute (6) Thrombocytopenia Code(s): D69.6 - THROMBOCYTOPENIA, UNSPECIFIED Status: Acute - Plan Plan: Hospital day: 4 Fluids: LR at 70 mL/hr. Drips: Levophed 4, propofol 15 Vent Settings: SIMV, FiO2 50%, TV 500/, RR 18/18, PEEP 14, Ppeak 29 Lines/Tubes: ET,OT,Monreal catheter, right central femoral line, left peripheral IV in hand Urine output: 30-100cc/hr Disposition: DC in greater that 5 days, attempts will be made to transfer pt to [facility] when pt is more stable PCP: Johan Code: Full Prophylaxis: Pepcid Family: 2 guards per protocol Prognosis: Guarded 02/28 Plan: -UO improved with albumin. Monitor fluid status. Can consider another dose if still edematous -Inc NPH for hyperglycemia. -Afib with RVR -continue amiodarone -Active hepatitis C - discuss antivirals #Acute hypoxic hypercapneic respiratory failure 2/2 COVID PNA on mechanical ventilation -Intubated, ventilator/respiratory support -Sedation: Propofol, continue sedation vacation -Daily ABG and CXR -Will work to wean as appropriate -CXR today appears mildly improved #COVID 19 B/L PNA -S/P tocilizamab and convalescent plasma -Covering with cefepime for bacterial PNA as well due to recent hospitalization -Covid diagnosed on 02/18/20 -Did not qualify for remdesivir -Steroids 02/23 #Severe sepsis 2/2 above -Requiring levophed, MAPs 70s, titrate as BP tolerates #NSTEMI vs. Myocarditis 2/2 COVID -Type 1 vs. 2 NSTEMI vs. Myocarditis -Cardiology consulted and recommends no intervention or anticoaguation at this time 2/2 thrombocytopenia and COVID. 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 [] I agree with the History, Examination, Assessment and Plan documented above with any addition or exceptions noted below. initiating transfer to [facility]. Still requiring levophed. Continue supportive care. Prognosis guarded.
--- NOTE | 2020-02-29 08:21 | PRG ---
DATE OF SERVICE: 02/29/2020 TIME SPENT: 35 minutes of critical care time. SUBJECTIVE: The patient remains in the ICU on mechanical ventilation for COVID-19 pneumonia. No acute events overnight. He was placed in supine position yesterday. OBJECTIVE: VITAL SIGNS: On exam, temperature is 96.4, pulse 72, blood pressure 113/73, and O2 saturation 100%. 24-hour intake 4263, output 1170. HEENT: Unremarkable. NECK: No adenopathy or JVD. LUNGS: Clear anteriorly. CARDIOVASCULAR: S1 and S2. Irregular. ABDOMEN: Soft. EXTREMITIES: No edema. LABORATORY DATA: White blood cell count 5.1, hematocrit 29.1, and platelet count 37. PH of 7.40, pCO2 of 36, pO2 of 100 on SIMV rate 18, tidal volume 500, PEEP 14, pressure support 10, and FiO2 of 50%. Sodium 135, potassium 5, chloride 106, CO2 of 25, BUN 40, creatinine 0.7, and glucose 264. C-reactive protein is less than 0.5, ferritin 172. ASSESSMENT: 1. Myocardial infarction. 2. COVID-19 pneumonia. 3. Acute respiratory failure. 4. Chronic thrombocytopenia. PLAN: Overall, this patient's immunologic profile suggests that he does not have much inflammation, which makes me think that he is suffering from the effects of the myocardial infarction more than anything else. He has received convalescent plasma, steroids, and IL-6 inhibitor. He is not a candidate for an anticoagulation secondary to his low platelet count. We should try to get him over to [facility] as I would assume he is going to be intubated for quite some time. I have gone down his FiO2. His prognosis remains quite poor secondary to his cardiac status. Job ID: [id number]
--- NOTE | 2020-02-29 08:52 | RAD ---
PORTABLE CHEST: History Pneumonia. COMPARISON: 02/28/2020. FINDINGS/IMPRESSION: ET tube unchanged with tip above jazmin. Hazy infiltrate in the left mid and lower lung field. No s ignificant interval change. POS: AGW
[2020-02-29] MEDS: Cefepime 2 GM in Sodium Chloride 0.9% 100 ML IVPB SCH ×2 (09:27→20:31)
[2020-02-29] MEDS: Famotidine 20 MG TAB PER TUBE SCH ×2 (09:28→20:32)
[2020-02-29] MEDS: NPH, Human Insulin Isophane 300 UNIT/3 ML VIAL SC SCH ×2 (09:31→20:33)
--- NOTE | 2020-02-29 10:27 | PDOC.CPN ---
- Subjective Date: 02/29/20 Time: 08:30 Interval history: The pt seen. No overnight events. His HR has been stable with Amiodarone drip. This is chart review due to COVID 19 positive - Objective Allergies/Adverse Reactions: Allergies Allergy/AdvReac Type Severity Reaction Status Date / Time No Known Allergies Allergy Verified 02/25/20 00:51 Visit Medications: Current Medications Albumin Human (Albumin 5%) 12.5 gm IVPB NOW [facility] Stop: 02/29/20 16:37 Last Admin: 02/28/20 15:00 Dose: 12.5 gm Albuterol/Ipratropium (Duoneb) 3 ml NEB [id number] [facility] Last Admin: 02/29/20 07:14 Dose: 3 ml Dextrose/Water (Dextrose 50%) 25 gm SLOW IVP PRN PRN PRN Reason: Hypoglycemia Famotidine (Pepcid) 20 mg PER TUBE BID [facility] Last Admin: 02/29/20 09:28 Dose: 20 mg Glucagon (Glucagon) 1 mg IM PRN PRN PRN Reason: Hypoglycemia Fentanyl Citrate 2,000 mcg/ (Sodium Chloride) 100 mls @ 0 mls/hr IV INF MYRIAM; Protocol Stop: 03/25/20 20:03 Last Admin: 02/28/20 12:08 Dose: 100 mls Fentanyl Citrate (Fentanyl Bolus) 250 mls @ 0 mls/hr IVPB PRN PRN PRN Reason: Breakthrough pain/agitation Stop: 03/25/20 21:24 Last Admin: 02/27/20 10:52 Dose: 250 mls Potassium Chloride 40 meq/ (Sodium Chloride) 270 mls @ 135 mls/hr IVPB ASDIR PRN PRN Reason: FOR SERUM K+ 2.5 - 3.5 Potassium Chloride 40 meq/ (Device) 100 mls @ 50 mls/hr IVPB ASDIR PRN PRN Reason: FOR SERUM K+ 2.5 - 3.5 Magnesium Sulfate 1 gm/ Sodium (Chloride) 102 mls @ 102 mls/hr IV PRN PRN PRN Reason: MAG LEVEL 1.4 - 2.0 Magnesium Sulfate 2 gm/ Device 50 mls @ 50 mls/hr IVPB ASDIR PRN PRN Reason: MAGNESIUM < 1.4 Potassium Phosphate 9 mmol/ (Sodium Chloride) 103 mls @ 25.75 mls/hr IVPB ASDIR PRN PRN Reason: Phosphate 1.0-1.8 Potassium Phosphate 12 mmol/ (Sodium Chloride) 254 mls @ 63.5 mls/hr IV ASDIR PRN PRN Reason: Serum phosphate 0.5-0.9 Potassium Phosphate 15 mmol/ (Sodium Chloride) 255 mls @ 63.75 mls/hr IV ASDIR PRN PRN Reason: Serum Phos < 0.5 Norepinephrine Bitartrate (Levophed) 250 mls @ 0 mls/hr IVPB INF MYRIAM; Protocol Last Admin: 02/28/20 09:22 Dose: 250 mls Dextrose/Water (D5w) 1,000 mls @ 0 mls/hr IV .Q0M PRN PRN Reason: Hypoglycemia Cefepime HCl 2 gm/ Sodium (Chloride) 100 mls @ 200 mls/hr IVPB BID [facility] Last Admin: 02/29/20 09:27 Dose: 100 mls Lactated Ringer's (Lactated Ringer's) 1,000 mls @ 70 mls/hr IV .[id number] [facility] Last Admin: 02/28/20 23:53 Dose: 1,000 mls Amiodarone HCl 450 mg/ (Dextrose/Water) 259 mls @ 0 mls/hr IVPB INF [facility]; Protocol Last Admin: 02/29/20 01:58 Dose: 259 mls Insulin Human Lispro (Humalog) 0 units SC .AGGRESSIVE SLIDING PRN PRN Reason: Aggressive Correctional Scale Last Admin: 02/29/20 05:44 Dose: 9 unit Insulin Human NPH (Humulin N) 25 unit SC BID [facility] Last Admin: 02/29/20 09:31 Dose: 25 unit Iron/Minerals/Multivitamins (Certa [place] Liquid) 15 ml PER TUBE DAILY [facility] Lorazepam (Ativan) 2 mg SLOW IVP Q1H PRN PRN Reason: Breakthrough agitation Stop: 03/25/20 21:24 Magnesium Oxide (Magnesium Oxide) 400 mg PO BIDPRN PRN PRN Reason: FOR SERUM MAG 1.4 - 2.0 Magnesium Oxide (Magnesium Oxide) 800 mg PO PRN PRN PRN Reason: FOR SERUM MAG < 1.4 Methylprednisolone Sodium Succinate (Solu-Medrol) 60 mg IVP Q6HR [facility] Last Admin: 02/29/20 05:44 Dose: 60 mg Metoclopramide HCl (Reglan) 10 mg IVP Q6H [facility] Last Admin: 02/29/20 09:28 Dose: 10 mg Miscellaneous Medication (Ccu Electrolyte Replacement) 1 each IVPB ONE [facility] Stop: 03/25/20 21:47 Miscellaneous Medication (Ventilator Sedation Protocol) 1 each FS ONE [facility] Stop: 03/25/20 21:47 Miscellaneous Medication (Phos-Nak) 1 pkt PO TIDPRN PRN PRN Reason: FOR PHOS LEVEL 1.0 - 1.8 Miscellaneous Medication (Phos-Nak) 2 pkt PO TIDPRN PRN PRN Reason: FOR PHOS LEVEL 0.5 - 1.0 Morphine Sulfate (Morphine) 2 mg SLOW IVP Q1H PRN PRN Reason: BREAKTHROUGH PAIN/Agitation Stop: 03/25/20 21:24 Ccu Electrolyte (Replacement Protocol) 0 each FS PRN PRN PRN Reason: FOR ELECTROLYTE REPLACEMENT Potassium Chloride (K-Dur) 40 meq PO ASDIR PRN PRN Reason: FOR SERUM K+ 2.5 - 3.5 Potassium Chloride (Klor-Con) 40 meq PER TUBE ASDIR PRN PRN Reason: FOR SERUM K+ 2.5-3.5 Propofol (Diprivan) 1,000 mg IV INF PRN; Protocol PRN Reason: TO ACHIEVE GOAL RASS Stop: 03/25/20 21:24 Last Admin: 02/29/20 03:49 Dose: 1,000 mg Propofol (Diprivan Bolus) 20 mg IV Q5MIN PRN PRN Reason: BREAKTHROUGH AGITATION Stop: 03/25/20 21:24 Sodium Chloride (Flush - Normal Saline) 10 ml IVF Q12HR [facility] Last Admin: 02/28/20 19:30 Dose: 10 ml Sodium Chloride (Flush - Normal Saline) 10 ml IVF PRN PRN PRN Reason: Saline Flush Vecuronium [place] (Norcuron) 10 mg IVP Q30MIN PRN PRN Reason: Agitation Last Admin: 02/28/20 19:33 Dose: 10 mg Vital Signs & Weight: Vital Signs Pulse Resp BP 02/29/20 09:59 64 02/29/20 08:00 18 02/29/20 07:14 71 02/29/20 06:00 18 02/29/20 04:00 18 02/29/20 03:41 72 115/71 02/29/20 02:00 18 02/29/20 01:56 75 02/29/20 00:12 77 101/75 02/29/20 00:00 18 Admit Weight 204 lb Weight 216 lb 0.848 oz - Labs Result Diagrams: 02/29/20 03:45 02/29/20 03:45 Troponin/CKMB CK-MB (CK-2) 22.0 ng/mL (0-6.6) H* 02/27/20 03:50 Troponin I 8.080 ng/mL (< 0.028) H* 02/27/20 03:50 - Telemetry Supraventricular conduction: atrial fibrillation - Assessment/Plan Assessment/Plan: 1. COVID-19 infection with PNA - On Vent 2. NSTEMI vs Myocarditis 2/2 COVID - not candidate for cardiac cath and cont. medical tx only due to hx of Thrombocytopenia 3. Severe Sepsis - on Levophed 4. HTN 5. HLD 6. hx of Cirrhosis 7. COPD 8. Hx of meth abuse and ex-smoker 9. Parox Afib - well controlled HR; on Amiodarone drip; not on OAC or ASA due to hx of Thrombocytopenia; Monitor his ECG and liver function carefully due to he is on Amio with propofol and hx of cirrhosis MAR reviewed .Pt. viewed from outside room. Records,chart reviewed. He remains in atrial fibrillation but the rate is controlled. I agree with the A/P by the TELESALES PROFESSIONAL.Plan for echo when possible to evaluate LV function.
[2020-02-29] MEDS: Multivits W-Minerals Liquid 15 ML LIQ PER TUBE SCH (12:24)
[2020-02-29] MEDS: fentaNYL Citrate/PF 2,000 MCG in Sodium Chloride 0.9% 60 ML IV SCH (13:17)
[2020-02-29] MEDS: Lactated Ringer's 1,000 ML IV SCH (15:13)
[2020-02-29] MEDS ORDERED: Albumin 5% 250 ML ONE (15:48)
[2020-02-29] MEDS ORDERED: Amiodarone 450 MG in Dextrose 5% in Water 250 ML IVPB SCH (16:30)
[2020-02-29] MEDS: Norepinephrine 8 MG/0.9% NS 250 ML IVPB SCH (19:25)
[2020-03-01] MEDS: Propofol 1,000 MG/100 ML VIAL IV PRN ×4 (01:52→17:36)
[2020-03-01] MEDS: Metoclopramide HCl 10 MG/2 ML VIAL IVP SCH ×4 (02:56→20:59)
[2020-03-01 04:14] LABS: #Lymphocytes 0.2 thou/uL (1.20-3.40); #Monocytes 0.3 thou/uL (0.11-0.59); #Neutrophils 4.1 thou/uL (1.40-6.50); %Eosinophils 0.8 % (0.0-10.0); %Lymphocytes 4.4 % (21.0-51.0); %Monocytes 6.8 % (0.0-10.0); Mean Corpuscular HGB CONC 35.1 g/dL (32.0-36.0); Mean Corpuscular Hemoglobin 36.2 pg (27.0-31.0); Mean Platelet Volume 9.7 fL (7.4-10.4); Platelet Count 35 thou/uL (130-400); RBC Distribution Width 14.6 % (11.5-14.5); Red Blood Cell (RBC) Count 3.03 mill/uL (4.70-6.10); White Blood Cell (WBC) Count 4.6 thou/uL (4.8-10.8)
[2020-03-01 04:34] LABS: ALT (SGPT) 31 U/L (8-55); AST (SGOT) 46 U/L (5-34); Albumin 3.2 g/dL (3.4-4.8); Alkaline Phosphatase 89 U/L (40-110); Anion Gap 10 mmol/L (10-20); BUN (Urea Nitrogen) 43 mg/dL (8.4-25.7); Bilirubin, Total 2.4 mg/dL (0.2-1.2); Calc. Creatinine Clearance 136 mL/min (70-130); Carbon Dioxide 24 mmol/L (23-31); Chloride 107 mmol/L (98-107); Estimated GFR-MDRD Greater than 90; Globulin 2.5 g/dL (2.4-3.5); Glucose 195 mg/dL (80-115); Potassium 5.3 mmol/L (3.5-5.1); Protein, Total 5.7 g/dL (5.8-8.1); Sodium 136 mmol/L (136-145)
[2020-03-01] MEDS: methylPREDNISolone Sod Succ/PF 125 MG/2 ML VIAL IVP SCH (05:36)
[2020-03-01] MEDS: Lactated Ringer's 1,000 ML IV SCH (05:36)
[2020-03-01] MEDS: HumaLOG 300 UNITS/3 ML VIAL SC PRN ×5 (05:38→23:59)
--- NOTE | 2020-03-01 06:45 | PDOC.FM ---
- Subjective Subjective: NAEO. Still requiring levophed. - Objective MAR Reviewed: Yes Vital Signs & Weight: Vital Signs (12 hours) Temp Pulse Resp BP Pulse Ox 03/01/20 06:00 18 03/01/20 04:00 97.2 F L 18 03/01/20 03:00 68 126/79 03/01/20 02:00 18 03/01/20 01:12 66 120/78 03/01/20 01:03 67 18 100 03/01/20 00:00 97.2 F L 18 02/29/20 22:25 63 110/69 02/29/20 22:00 18 02/29/20 20:00 97.3 F L 18 100 02/29/20 18:47 68 18 100 Weight Admit Weight 92.533 kg Weight 99 kg Most Recent Monitor Data Heart Rate from ECG 75 NIBP 113/77 NIBP BP-Mean 89 Respiration from ECG 18 SpO2 95 I&O: 02/28/20 02/29/20 03/01/20 06:59 06:59 06:59 Intake Total 2842.6 4263.0 3657.3 Output Total 975 1170 1175 Balance 1867.6 3093.0 2482.3 Result Diagrams: 03/01/20 03:08 03/01/20 03:08 Phys Exam - Physical Examination Constitutional: NAD HEENT: moist MMs Respiratory: no wheezing, clear to auscultation bilateral Cardiovascular: no significant murmur bradycardic Gastrointestinal: soft, non-tender trace edema in hands and ankles sedated and intubated Dx/Plan (1) 2019 novel coronavirus disease (COVID-19) Code(s): U07.1 - COVID-19 Status: Acute (2) Acute respiratory failure with hypoxia Code(s): J96.01 - ACUTE RESPIRATORY FAILURE WITH HYPOXIA Status: Acute (3) Bilateral pneumonia Code(s): J18.9 - PNEUMONIA, UNSPECIFIED ORGANISM Status: Acute (4) Cirrhosis Code(s): K74.60 - UNSPECIFIED CIRRHOSIS OF LIVER Status: Acute (5) NSTEMI (non-ST elevated myocardial infarction) Code(s): I21.4 - NON-ST ELEVATION (NSTEMI) MYOCARDIAL INFARCTION Status: Acute (6) Thrombocytopenia Code(s): D69.6 - THROMBOCYTOPENIA, UNSPECIFIED Status: Acute - Plan Plan: Plan: Hospital day: 5 Fluids: SL Drips: Levophed 4, propofol 15 Vent Settings: SIMV, FiO2 40%, TV 500/, RR 18/18, PEEP 14, Ppeak 29 Lines/Tubes: ET,OT,Monreal catheter, right central femoral line, left peripheral IV in hand Urine output: 30-100cc/hr Disposition: DC in greater that 5 days, attempts will be made to transfer pt to [facility] when pt is more stable PCP: Johan Code: Full Prophylaxis: Pepcisixto Family: 2 guards per protocol Prognosis: Guarded 03/01 Plan: -Mild hyperkalemia at 5.3. Will go down with insulin. Rpt in AM -Active hepatitis C - discuss antivirals -Try weaning off of levophed -Awaiting transfer #Acute hypoxic hypercapneic respiratory failure 2/2 COVID PNA on mechanical ventilation -Intubated, ventilator/respiratory support -Sedation: Propofol, continue sedation vacation -Daily ABG and CXR -Will work to wean as appropriate -CXR today appears mildly improved #COVID 19 B/L PNA -S/P tocilizamab and convalescent plasma -Covering with cefepime for bacterial PNA as well due to recent hospitalization -Covid diagnosed on 02/18/20 -Did not qualify for remdesivir -Steroids 02/23 #Severe sepsis 2/2 above -Requiring levophed, MAPs 70s, titrate as BP tolerates #COVID Myocarditis -Trops downtrended -Cardiology on board, recs appreciated #New onset paroxysmal afib -Rate controlled on amio gtt -No anticoagulation d/t thrombocytopenia -Monitor LFTs #Active Hep C -Positive viral load -GI consult upon transfer or here if not transferred today #Anemia -Hb 11, stable -Goal 8-10 due to current ACS, monitor daily #Thrombocytopenia -Stable -likely 2/2 cirrhosis -No signs of active bleeding, hold anticoagulation #Hyperglycemia, likely 2/2 steroids -Continue NPH, aggressive sliding scale -Goal <180 #QTc prolongation -Monitor #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 I have verified all Resident documentation or findings, including history, physical exam and/or medical decision making. Attempting gentle diuresis as he is several liters positive. Continue pressors. Has been accepted for transfer to [facility] when a bed is available. Will f/u later today on transfer status. Prognosis guarded.
[2020-03-01 07:13] LABS: Actual Bicarbonate (HCO3a) 21.6 mEq/L (22-28); Base Excess (BEa) -3.1 mEq/L (-2.0 to +3.0); CO2 Tension 37.4 mmHg (35.0-45.0); Calcium, Ionized (arterial) 1.21 mmol/L (1.12-1.30); Carboxyhemoglobin (COHb) 0.5 gm% (0.0-3.0); Hemoglobin (Hb) 11.5 g/dL (14.0-18.0); O2 Tension (PaO2), arterial 60.1 mmHg (> 80.0); Potassium - ABG Lab 5.23 mmol/L (3.70-5.30); pH, Arterial 7.38 (7.35-7.45)
[2020-03-01 07:23] LABS: Puncture Site RBRACH
[2020-03-01] MEDS: Cefepime 2 GM in Sodium Chloride 0.9% 100 ML IVPB SCH ×2 (09:12→21:03)
[2020-03-01] MEDS: Multivits W-Minerals Liquid 15 ML LIQ PER TUBE SCH (09:12)
[2020-03-01] MEDS: Famotidine 20 MG TAB PER TUBE SCH ×2 (09:13→20:59)
[2020-03-01] MEDS ORDERED: Furosemide 40 MG/4 ML VIAL SLOW IVP SCH (09:30)
[2020-03-01] MEDS: NPH, Human Insulin Isophane 300 UNIT/3 ML VIAL SC SCH ×2 (09:49→21:00)
--- NOTE | 2020-03-01 09:56 | PRG ---
DATE OF SERVICE: 03/01/2020 TIME SPENT: 35 minutes of critical care time. SUBJECTIVE: The patient remains intubated on mechanical ventilation. He is very sedated. He remains on Levophed drip. He is also on amiodarone. OBJECTIVE: VITAL SIGNS: Temperature 98.4, pulse 56, blood pressure 123/72. 24-hour intake 4053, output 1175. HEENT: Unchanged. NECK: No JVD. LUNGS: Coarse breath sounds. CARDIAC: S1 and S2. Borderline bradycardic. ABDOMEN: Soft. EXTREMITIES: No edema. LABORATORY DATA: Sodium 136, potassium 5.3, chloride 107, CO2 of 24, BUN 43, creatinine 0.7, glucose 195, total bilirubin is 2.4. White blood cell count 4.6, hematocrit 31, and platelet count 35. PH 7.38, pCO2 of 37, pO2 of 60, on SIMV rate 18, tidal volume 500, PEEP 14, pressure support 10, FiO2 of 40%. DIAGNOSTIC DATA: His x-ray shows bibasilar atelectasis and more profound infiltrate on the left. ASSESSMENT: 1. COVID-19 pneumonia. 2. Myocarditis versus NM. 3. Acute respiratory failure requiring mechanical ventilation. PLAN: At this point, he is not weanable. I tried to turn down his PEEP, but he did not tolerate. We will try to reduce his Levophed dose. I will decrease his steroid dose. He has received convalescent plasma, steroids, and IL-6 inhibitor. He is not a candidate for anticoagulation secondary to his very low platelet count. He presented too late for Remdesivir to be of any help. Overall, his prognosis is very grave. Job ID: [id number]
--- NOTE | 2020-03-01 10:12 | RAD ---
AP CHEST: Date: 03/01/2020 HISTORY: Pneumonia follow-up. COMPARISON: 02/29/2020. FINDINGS: Patient is rotated, which distorts the chest. ET tube and NG tube remain in place. Hazy streaky infil trate in the left mid and lower lung is again noted. This does not appear significantly changed from yesterday. IMPRESSION: Suboptimal positioning. No evidence of interval change. POS: AGW
[2020-03-01] MEDS: methylPREDNISolone Sod Succ 40 MG VIAL IVP SCH ×2 (11:31→17:36)
--- NOTE | 2020-03-01 11:38 | PDOC.CPN ---
- Subjective Date: 03/01/20 Time: 08:00 Interval history: The pt seen and his chart was reviewed. No overnight events. This is chart review due to COVID 19 positive - Objective Allergies/Adverse Reactions: Allergies Allergy/AdvReac Type Severity Reaction Status Date / Time No Known Allergies Allergy Verified 02/25/20 00:51 Visit Medications: Current Medications Albuterol/Ipratropium (Duoneb) 3 ml NEB [id number] [facility] Last Admin: 03/01/20 07:20 Dose: 3 ml Dextrose/Water (Dextrose 50%) 25 gm SLOW IVP PRN PRN PRN Reason: Hypoglycemia Famotidine (Pepcid) 20 mg PER TUBE BID [facility] Last Admin: 03/01/20 09:13 Dose: 20 mg Furosemide (Lasix) 40 mg SLOW IVP NOW [facility] Stop: 03/01/20 12:00 Last Admin: 03/01/20 11:31 Dose: 40 mg Glucagon (Glucagon) 1 mg IM PRN PRN PRN Reason: Hypoglycemia Fentanyl Citrate 2,000 mcg/ (Sodium Chloride) 100 mls @ 0 mls/hr IV INF [facility]; Protocol Stop: 03/25/20 20:03 Last Admin: 02/29/20 13:17 Dose: 100 mls Fentanyl Citrate (Fentanyl Bolus) 250 mls @ 0 mls/hr IVPB PRN PRN PRN Reason: Breakthrough pain/agitation Stop: 03/25/20 21:24 Last Admin: 02/27/20 10:52 Dose: 250 mls Potassium Chloride 40 meq/ (Sodium Chloride) 270 mls @ 135 mls/hr IVPB ASDIR PRN PRN Reason: FOR SERUM K+ 2.5 - 3.5 Potassium Chloride 40 meq/ (Device) 100 mls @ 50 mls/hr IVPB ASDIR PRN PRN Reason: FOR SERUM K+ 2.5 - 3.5 Magnesium Sulfate 1 gm/ Sodium (Chloride) 102 mls @ 102 mls/hr IV PRN PRN PRN Reason: MAG LEVEL 1.4 - 2.0 Magnesium Sulfate 2 gm/ Device 50 mls @ 50 mls/hr IVPB ASDIR PRN PRN Reason: MAGNESIUM < 1.4 Potassium Phosphate 9 mmol/ (Sodium Chloride) 103 mls @ 25.75 mls/hr IVPB ASDIR PRN PRN Reason: Phosphate 1.0-1.8 Potassium Phosphate 12 mmol/ (Sodium Chloride) 254 mls @ 63.5 mls/hr IV ASDIR PRN PRN Reason: Serum phosphate 0.5-0.9 Potassium Phosphate 15 mmol/ (Sodium Chloride) 255 mls @ 63.75 mls/hr IV ASDIR PRN PRN Reason: Serum Phos < 0.5 Norepinephrine Bitartrate (Levophed) 250 mls @ 0 mls/hr IVPB INF [facility]; Protocol Last Admin: 02/29/20 19:25 Dose: 250 mls Dextrose/Water (D5w) 1,000 mls @ 0 mls/hr IV .Q0M PRN PRN Reason: Hypoglycemia Cefepime HCl 2 gm/ Sodium (Chloride) 100 mls @ 200 mls/hr IVPB BID [facility] Last Admin: 03/01/20 09:12 Dose: 100 mls Amiodarone HCl 450 mg/ (Dextrose/Water) 259 mls @ 0 mls/hr IVPB INF [facility]; Protocol Last Admin: 02/29/20 01:58 Dose: 259 mls Insulin Human Lispro (Humalog) 0 units SC .AGGRESSIVE SLIDING PRN PRN Reason: Aggressive Correctional Scale Last Admin: 03/01/20 09:50 Dose: 6 unit Insulin Human NPH (Humulin N) 25 unit SC BID [facility] Last Admin: 03/01/20 09:49 Dose: 25 unit Iron/Minerals/Multivitamins (Certa [place] Liquid) 15 ml PER TUBE DAILY [facility] Last Admin: 03/01/20 09:12 Dose: 15 ml Lorazepam (Ativan) 2 mg SLOW IVP Q1H PRN PRN Reason: Breakthrough agitation Stop: 03/25/20 21:24 Magnesium Oxide (Magnesium Oxide) 400 mg PO BIDPRN PRN PRN Reason: FOR SERUM MAG 1.4 - 2.0 Magnesium Oxide (Magnesium Oxide) 800 mg PO PRN PRN PRN Reason: FOR SERUM MAG < 1.4 Methylprednisolone Sodium Succinate (Solu-Medrol) 40 mg IVP Q6HR [facility] Last Admin: 03/01/20 11:31 Dose: 40 mg Metoclopramide HCl (Reglan) 10 mg IVP Q6H [facility] Last Admin: 03/01/20 09:13 Dose: 10 mg Miscellaneous Medication (Ccu Electrolyte Replacement) 1 each IVPB ONE [facility] Stop: 03/25/20 21:47 Miscellaneous Medication (Ventilator Sedation Protocol) 1 each FS ONE [facility] Stop: 03/25/20 21:47 Miscellaneous Medication (Phos-Nak) 1 pkt PO TIDPRN PRN PRN Reason: FOR PHOS LEVEL 1.0 - 1.8 Miscellaneous Medication (Phos-Nak) 2 pkt PO TIDPRN PRN PRN Reason: FOR PHOS LEVEL 0.5 - 1.0 Morphine Sulfate (Morphine) 2 mg SLOW IVP Q1H PRN PRN Reason: BREAKTHROUGH PAIN/Agitation Stop: 03/25/20 21:24 Ccu Electrolyte (Replacement Protocol) 0 each FS PRN PRN PRN Reason: FOR ELECTROLYTE REPLACEMENT Potassium Chloride (K-Dur) 40 meq PO ASDIR PRN PRN Reason: FOR SERUM K+ 2.5 - 3.5 Potassium Chloride (Klor-Con) 40 meq PER TUBE ASDIR PRN PRN Reason: FOR SERUM K+ 2.5-3.5 Propofol (Diprivan) 1,000 mg IV INF PRN; Protocol PRN Reason: TO ACHIEVE GOAL RASS Stop: 03/25/20 21:24 Last Admin: 03/01/20 11:35 Dose: 1,000 mg Propofol (Diprivan Bolus) 20 mg IV Q5MIN PRN PRN Reason: BREAKTHROUGH AGITATION Stop: 03/25/20 21:24 Sodium Chloride (Flush - Normal Saline) 10 ml IVF Q12HR [facility] Last Admin: 03/01/20 09:13 Dose: 10 ml Sodium Chloride (Flush - Normal Saline) 10 ml IVF PRN PRN PRN Reason: Saline Flush Vecuronium [place] (Norcuron) 10 mg IVP Q30MIN PRN PRN Reason: Agitation Last Admin: 02/28/20 19:33 Dose: 10 mg Vital Signs & Weight: Vital Signs Temp Pulse Resp BP Pulse Ox 03/01/20 10:36 65 03/01/20 10:00 15 03/01/20 08:00 15 96 03/01/20 07:21 60 03/01/20 07:20 60 18 91 L 03/01/20 06:00 18 03/01/20 04:00 97.2 F L 18 03/01/20 03:00 68 126/79 03/01/20 02:00 18 03/01/20 01:12 66 120/78 03/01/20 01:03 67 18 100 03/01/20 00:00 97.2 F L 18 Admit Weight 204 lb Weight 218 lb 4.122 oz - Labs Result Diagrams: 03/01/20 03:08 03/01/20 03:08 Troponin/CKMB CK-MB (CK-2) 22.0 ng/mL (0-6.6) H* 02/27/20 03:50 Troponin I 8.080 ng/mL (< 0.028) H* 02/27/20 03:50 - Telemetry Sinus rhythms and dysrhythmias: other (SR 50s) - Assessment/Plan Assessment/Plan: 1. COVID-19 infection with PNA - On Vent 2. NSTEMI vs Myocarditis 2/2 COVID - not candidate for cardiac cath and cont. medical tx only due to hx of Thrombocytopenia; possible Echo when COVID 19 is cleared to eval LV function 3. Severe Sepsis - on Levophed 4. HTN 5. HLD 6. hx of Cirrhosis 7. COPD 8. Hx of meth abuse and ex-smoker 9. Parox Afib - converted back to SR with HR 50s; on Amiodarone drip; not on OAC or ASA due to hx of Thrombocytopenia; Monitor his ECG and liver function carefully due to he is on Amio with propofol and hx of cirrhosis; cont. Amio drip for now due to NPO MAR reviewed Pt's. records eval. by me. I agree with the a/P by the [employer]. He has returned to NSR. Will repeat 12 lead EKG. For now continue IV amiodarone . The liver fx. is stable but would not advise amiodarone senior care. When stable is he survives the Covid-19 virus then an echo will be needed and possibly a cardiac cath. The problem is with the thrombocytopenia he is a poor candidate for cardiac cath and certainly an issue if he needs an intervention of any sort. leeanne
[2020-03-01] MEDS: fentaNYL Citrate/PF 2,000 MCG in Sodium Chloride 0.9% 60 ML IV SCH (14:20)
[2020-03-01] MEDS: Amiodarone 450 MG in Dextrose 5% in Water 250 ML IVPB SCH (22:49)
[2020-03-02] MEDS: methylPREDNISolone Sod Succ 40 MG VIAL IVP SCH ×4 (00:27→17:53)
[2020-03-02] MEDS: Propofol 1,000 MG/100 ML VIAL IV PRN ×4 (00:34→17:53)
[2020-03-02] MEDS: Metoclopramide HCl 10 MG/2 ML VIAL IVP SCH ×4 (02:11→22:01)
[2020-03-02 07:48] LABS: ALT (SGPT) 37 U/L (8-55); AST (SGOT) 48 U/L (5-34); Albumin 3.1 g/dL (3.4-4.8); Alkaline Phosphatase 89 U/L (40-110); Anion Gap 10 mmol/L (10-20); BUN (Urea Nitrogen) 67 mg/dL (8.4-25.7); Bilirubin, Total 2.4 mg/dL (0.2-1.2); Calc. Creatinine Clearance 112 mL/min (70-130); Calcium 7.8 mg/dL (7.8-10.44); Carbon Dioxide 25 mmol/L (23-31); Chloride 108 mmol/L (98-107); Estimated GFR-MDRD 81; Globulin 2.7 g/dL (2.4-3.5); Glucose 198 mg/dL (80-115); Potassium 5.6 mmol/L (3.5-5.1); Protein, Total 5.8 g/dL (5.8-8.1); Sodium 137 mmol/L (136-145)
--- NOTE | 2020-03-02 07:49 | PDOC.FM ---
- Subjective Subjective: NAEO per nursing, still pending bed placement - Objective MAR Reviewed: Yes Vital Signs & Weight: Vital Signs (12 hours) Temp Pulse Resp BP Pulse Ox 03/02/20 06:00 15 03/02/20 04:00 97.8 F 15 03/02/20 03:45 61 121/69 03/02/20 02:00 15 03/02/20 01:09 61 15 95 03/02/20 00:00 97.5 F L 15 03/01/20 22:22 65 116/66 03/01/20 22:00 15 03/01/20 20:00 98.1 F 15 95 Weight Admit Weight 92.533 kg Weight 97 kg Most Recent Monitor Data Heart Rate from ECG 61 NIBP 121/70 NIBP BP-Mean 87 Respiration from ECG 15 SpO2 98 I&O: 03/01/20 03/02/20 03/03/20 06:59 06:59 06:59 Intake Total 4053.3 4173.4 Output Total 1175 1615 Balance 2878.3 2558.4 Result Diagrams: 03/02/20 07:16 03/02/20 15:30 Phys Exam - Physical Examination Constitutional: NAD Respiratory: no wheezing no respiratory distress Cardiovascular: no significant murmur 1+ edema in hands and feet Deviation from normal: sedated and intubated multiple tattoos Dx/Plan (1) 2018 novel coronavirus disease (COVID-19) Code(s): U07.1 - COVID-19 Status: Acute (2) Acute respiratory failure with hypoxia Code(s): J96.01 - ACUTE RESPIRATORY FAILURE WITH HYPOXIA Status: Acute (3) Bilateral pneumonia Code(s): J18.9 - PNEUMONIA, UNSPECIFIED ORGANISM Status: Acute (4) Cirrhosis Code(s): K74.60 - UNSPECIFIED CIRRHOSIS OF LIVER Status: Acute (5) NSTEMI (non-ST elevated myocardial infarction) Code(s): I21.4 - NON-ST ELEVATION (NSTEMI) MYOCARDIAL INFARCTION Status: Acute (6) Thrombocytopenia Code(s): D69.6 - THROMBOCYTOPENIA, UNSPECIFIED Status: Acute - Plan Plan: Hospital day: 5 Fluids: SL Drips: Levophed 4, propofol 15 Vent Settings: SIMV, FiO2 40%, TV 500/, RR 18/18, PEEP 13, Ppeak 29 Lines/Tubes: ET,OT,Monreal catheter, right central femoral line, left peripheral IV in hand Urine output: 50-60cc/hr Disposition: DC in greater that 5 days, attempts will be made to transfer pt to [facility] when pt is more stable PCP: Johan Code: Full Prophylaxis: Pepcid Family: 2 guards per protocol Prognosis: Guarded 03/02 Plan: -Hyperkalemic at 5.6, give kayexalate, rpt K+ this afternoon. Concern for effectivity since has been having high residuals -Poor prognosis, consult palliative. Pending bed opening at [facility] -Cardiology is converting amio gtt to PO, concern for not working with residuals. Will contact cards -Several liters up in fluid status. Will give 1 IV lasix #Acute hypoxic hypercapneic respiratory failure 2/2 COVID PNA on mechanical ventilation -Intubated, ventilator/respiratory support -Sedation: Propofol, continue sedation vacation -Daily ABG and CXR -Will work to wean as appropriate -CXR today appears mildly improved #COVID 19 B/L PNA -S/P tocilizamab and convalescent plasma -Covering with cefepime for bacterial PNA as well due to recent hospitalization -Covid diagnosed on 02/18/20 -Did not qualify for remdesivir -Steroids 02/23 #Severe sepsis 2/2 above -Requiring levophed, MAPs 70s, titrate as BP tolerates #COVID Myocarditis -Trops downtrended -Cardiology on board, recs appreciated #New onset paroxysmal afib -Rate controlled on amio gtt -No anticoagulation d/t thrombocytopenia -Monitor LFTs #Active Hep C -Positive viral load -GI consult upon transfer or here if not transferred today #Anemia -Hb 11, stable -Goal 8-10 due to current ACS, monitor daily #Thrombocytopenia -Stable -likely 2/2 cirrhosis -No signs of active bleeding, hold anticoagulation #Hyperglycemia, likely 2/2 steroids -Continue NPH, aggressive sliding scale -Goal <180 #QTc prolongation -Monitor #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 [] I agree with the History, Examination, Assessment and Plan documented above with any addition or exceptions noted below. He has had large residuals from his tube feeds despite reglan. Still edematous and several liters up on fluid. Will give additional dose of lasix 20 mg IVP. I& O improving but potassium uptrending today. kayexalate given in NG tube but given residuals i am not sure how well this will work. Will trend. Palliative care consulted to discuss CODE status. Prognosis is guarded.
[2020-03-02 08:24] LABS: Actual Bicarbonate (HCO3a) 22.1 mEq/L (22-28); Base Excess (BEa) -3.3 mEq/L (-2.0 to +3.0); CO2 Tension 40.7 mmHg (35.0-45.0); Calcium, Ionized (arterial) 1.15 mmol/L (1.12-1.30); Carboxyhemoglobin (COHb) 0.8 gm% (0.0-3.0); Hemoglobin (Hb) 11.4 g/dL (14.0-18.0); O2 Tension (PaO2), arterial 83.8 mmHg (> 80.0); Potassium - ABG Lab 5.35 mmol/L (3.70-5.30); pH, Arterial 7.35 (7.35-7.45)
--- NOTE | 2020-03-02 08:31 | PRG ---
DATE OF SERVICE: 03/02/2020 35 minutes critical time. SUBJECTIVE: The patient remains intubated on mechanical ventilation. There has been no acute changes overnight. Other than that, he is no longer tolerating his tube feeds very well. OBJECTIVE: VITAL SIGNS: His temperature is 97.5, pulse 61, blood pressure 121/70, O2 saturation 98%. He is currently on some amiodarone, no vasopressors. 24-hour intake 4173, output 1615. HEENT: Unremarkable. NECK: No JVD. LUNGS: Coarse breath sounds. CARDIOVASCULAR: S1, S2. Regular. ABDOMEN: Soft. EXTREMITIES: No edema. LABORATORY DATA: Sodium 137, potassium 5.6, chloride 108, CO2 of 25, BUN 67, creatinine 0.9, glucose 184. AST 48, ALT 37. Blood gas result pending. Chest x-ray shows fairly clear lung allen. ASSESSMENT: 1. COVID-19 pneumonia. 2. Myocarditis versus myocardial infarction. 3. Acute respiratory failure requiring mechanical ventilation. 4. Development of hyperkalemia and worsening renal insufficiency. PLAN: 1. I have turned down his PEEP to 13 as respiratory rate is 16. When I tried to drop it more aggressively yesterday, he did not do well. 2. He has received convalescent plasma, steroids, IL-6 inhibitor. He is not a candidate for anticoagulation due to his chronically low platelet count. 3. We will give him some Kayexalate for the hyperkalemia. 4. Tube feeds are being held for elevated gastric residuals, but the patient is now on Reglan. 5. This patient's prognosis is very poor. He eventually will transfer to [facility] when a bed becomes available. He is medically stable for transfer. However, I do not expect him to survive this illness. 6. I will go ahead and taper his steroid dose. Job ID: [id number]
[2020-03-02] MEDS: Famotidine 20 MG TAB PER TUBE SCH ×2 (08:35→21:59)
[2020-03-02] MEDS: Cefepime 2 GM in Sodium Chloride 0.9% 100 ML IVPB SCH ×2 (08:35→21:59)
[2020-03-02] MEDS: Sodium Chloride 0.9% 1,000 ML IV SCH ×2 (08:38→23:59)
[2020-03-02 08:39] LABS: Band 2 % (5-11); Hemoglobin 11.3 g/dL (14.0-18.0); Lymphocytes 4 % (21-51); MDiff Complete? YES; Macrocytosis SLIGHT = 6-15 cells (100X) (0-5/hpf); Mean Corpuscular HGB CONC 34.6 g/dL (32.0-36.0); Mean Corpuscular Hemoglobin 35.8 pg (27.0-31.0); Mean Platelet Volume 9.2 fL (7.4-10.4); Monocytes 8 % (0-10); Neutrophil 86 % (42-75); Platelet Count 33 thou/uL (130-400); Platelet Morphology Comment Appears Decreased; Polychromasia SLIGHT = 2-3 cells (100X) (0-2/hpf); RBC Distribution Width 14.6 % (11.5-14.5); Red Blood Cell (RBC) Count 3.17 mill/uL (4.70-6.10); Tear Drops SLIGHT = 2-5 cells (100X) (0-1/hpf)
[2020-03-02] MEDS: Multivits W-Minerals Liquid 15 ML LIQ PER TUBE SCH (08:40)
[2020-03-02] MEDS: NPH, Human Insulin Isophane 300 UNIT/3 ML VIAL SC SCH ×2 (09:00→22:01)
[2020-03-02] MEDS: HumaLOG 300 UNITS/3 ML VIAL SC PRN ×4 (09:00→20:10)
--- NOTE | 2020-03-02 09:52 | RAD ---
PORTABLE CHEST: INDICATION: Pneumonia. COMPARISON: 03/01/2020. FINDINGS: ET tube and NG Tube remain in place. Hazy infiltrates in the left lower lung again seen, possibly le ss pronounced today. Suggestion of small effusion is again noted. IMPRESSION: Question improvement in the left basilar infiltrate. POS: AGW
[2020-03-02 10:42] LABS: ALV-art Gradient 150.525 (0-20)
--- NOTE | 2020-03-02 11:11 | PDOC.CPN ---
- Subjective Date: 03/02/20 Time: 11:14 Interval history: The pt seen and the pt's chart was reviewed today. No overnight events. This is chart review due to COVID 19 positive - Objective Allergies/Adverse Reactions: Allergies Allergy/AdvReac Type Severity Reaction Status Date / Time No Known Allergies Allergy Verified 02/25/20 00:51 Visit Medications: Current Medications Albuterol/Ipratropium (Duoneb) 3 ml NEB [id number] [facility] Last Admin: 03/02/20 10:30 Dose: Not Given Dextrose/Water (Dextrose 50%) 25 gm SLOW IVP PRN PRN PRN Reason: Hypoglycemia Famotidine (Pepcid) 20 mg PER TUBE BID [facility] Last Admin: 03/02/20 08:35 Dose: 20 mg Glucagon (Glucagon) 1 mg IM PRN PRN PRN Reason: Hypoglycemia Fentanyl Citrate 2,000 mcg/ (Sodium Chloride) 100 mls @ 0 mls/hr IV INF [facility]; Protocol Stop: 03/25/20 20:03 Last Admin: 03/01/20 14:20 Dose: 100 mls Fentanyl Citrate (Fentanyl Bolus) 250 mls @ 0 mls/hr IVPB PRN PRN PRN Reason: Breakthrough pain/agitation Stop: 03/25/20 21:24 Last Admin: 02/27/20 10:52 Dose: 250 mls Potassium Chloride 40 meq/ (Sodium Chloride) 270 mls @ 135 mls/hr IVPB ASDIR PRN PRN Reason: FOR SERUM K+ 2.5 - 3.5 Potassium Chloride 40 meq/ (Device) 100 mls @ 50 mls/hr IVPB ASDIR PRN PRN Reason: FOR SERUM K+ 2.5 - 3.5 Magnesium Sulfate 1 gm/ Sodium (Chloride) 102 mls @ 102 mls/hr IV PRN PRN PRN Reason: MAG LEVEL 1.4 - 2.0 Magnesium Sulfate 2 gm/ Device 50 mls @ 50 mls/hr IVPB ASDIR PRN PRN Reason: MAGNESIUM < 1.4 Potassium Phosphate 9 mmol/ (Sodium Chloride) 103 mls @ 25.75 mls/hr IVPB ASDIR PRN PRN Reason: Phosphate 1.0-1.8 Potassium Phosphate 12 mmol/ (Sodium Chloride) 254 mls @ 63.5 mls/hr IV ASDIR PRN PRN Reason: Serum phosphate 0.5-0.9 Potassium Phosphate 15 mmol/ (Sodium Chloride) 255 mls @ 63.75 mls/hr IV ASDIR PRN PRN Reason: Serum Phos < 0.5 Norepinephrine Bitartrate (Levophed) 250 mls @ 0 mls/hr IVPB INF [facility]; Protocol Last Admin: 02/29/20 19:25 Dose: 250 mls Dextrose/Water (D5w) 1,000 mls @ 0 mls/hr IV .Q0M PRN PRN Reason: Hypoglycemia Cefepime HCl 2 gm/ Sodium (Chloride) 100 mls @ 200 mls/hr IVPB BID [facility] Last Admin: 03/02/20 08:35 Dose: 100 mls Amiodarone HCl 450 mg/ (Dextrose/Water) 259 mls @ 0 mls/hr IVPB INF [facility]; Protocol Last Admin: 03/01/20 22:49 Dose: 259 mls Sodium Chloride (Normal Saline 0.9%) 1,000 mls @ 70 mls/hr IV .[id number] [facility] Last Admin: 03/02/20 08:38 Dose: 1,000 mls Insulin Human Lispro (Humalog) 0 units SC .AGGRESSIVE SLIDING PRN PRN Reason: Aggressive Correctional Scale Last Admin: 03/02/20 09:00 Dose: 6 unit Insulin Human NPH (Humulin N) 25 unit SC BID [facility] Last Admin: 03/02/20 09:00 Dose: 25 unit Iron/Minerals/Multivitamins (Certa Tyler Liquid) 15 ml PER TUBE DAILY [facility] Last Admin: 03/02/20 08:40 Dose: 15 ml Lorazepam (Ativan) 2 mg SLOW IVP Q1H PRN PRN Reason: Breakthrough agitation Stop: 03/25/20 21:24 Magnesium Oxide (Magnesium Oxide) 400 mg PO BIDPRN PRN PRN Reason: FOR SERUM MAG 1.4 - 2.0 Magnesium Oxide (Magnesium Oxide) 800 mg PO PRN PRN PRN Reason: FOR SERUM MAG < 1.4 Methylprednisolone Sodium Succinate (Solu-Medrol) 20 mg IVP Q6HR [facility] Metoclopramide HCl (Reglan) 10 mg IVP Q6H [facility] Last Admin: 03/02/20 08:35 Dose: 10 mg Miscellaneous Medication (Ccu Electrolyte Replacement) 1 each IVPB ONE [facility] Stop: 03/25/20 21:47 Miscellaneous Medication (Ventilator Sedation Protocol) 1 each FS ONE [facility] Stop: 03/25/20 21:47 Miscellaneous Medication (Phos-Nak) 1 pkt PO TIDPRN PRN PRN Reason: FOR PHOS LEVEL 1.0 - 1.8 Miscellaneous Medication (Phos-Nak) 2 pkt PO TIDPRN PRN PRN Reason: FOR PHOS LEVEL 0.5 - 1.0 Morphine Sulfate (Morphine) 2 mg SLOW IVP Q1H PRN PRN Reason: BREAKTHROUGH PAIN/Agitation Stop: 03/25/20 21:24 Ccu Electrolyte (Replacement Protocol) 0 each FS PRN PRN PRN Reason: FOR ELECTROLYTE REPLACEMENT Potassium Chloride (K-Dur) 40 meq PO ASDIR PRN PRN Reason: FOR SERUM K+ 2.5 - 3.5 Potassium Chloride (Klor-Con) 40 meq PER TUBE ASDIR PRN PRN Reason: FOR SERUM K+ 2.5-3.5 Propofol (Diprivan) 1,000 mg IV INF PRN; Protocol PRN Reason: TO ACHIEVE GOAL RASS Stop: 03/25/20 21:24 Last Admin: 03/02/20 07:11 Dose: 1,000 mg Propofol (Diprivan Bolus) 20 mg IV Q5MIN PRN PRN Reason: BREAKTHROUGH AGITATION Stop: 03/25/20 21:24 Sodium Chloride (Flush - Normal Saline) 10 ml IVF Q12HR [facility] Last Admin: 03/02/20 08:40 Dose: 10 ml Sodium Chloride (Flush - Normal Saline) 10 ml IVF PRN PRN PRN Reason: Saline Flush Vecuronium [place] (Norcuron) 10 mg IVP Q30MIN PRN PRN Reason: Agitation Last Admin: 02/28/20 19:33 Dose: 10 mg Vital Signs & Weight: Vital Signs Temp Pulse Resp BP Pulse Ox 03/02/20 10:45 62 128/74 03/02/20 08:00 61 03/02/20 06:00 15 03/02/20 04:00 97.8 F 15 03/02/20 03:45 61 121/69 03/02/20 02:00 15 03/02/20 01:09 61 15 95 03/02/20 00:00 97.5 F L 15 Admit Weight 204 lb Weight 213 lb 13.574 oz - Labs Result Diagrams: 03/02/20 07:16 03/02/20 07:16 Troponin/CKMB CK-MB (CK-2) 22.0 ng/mL (0-6.6) H* 02/27/20 03:50 Troponin I 8.080 ng/mL (< 0.028) H* 02/27/20 03:50 - Telemetry Sinus rhythms and dysrhythmias: sinus rhythm - Assessment/Plan Assessment/Plan: 1. COVID-19 infection with PNA - On Vent 2. NSTEMI vs Myocarditis 2/2 COVID - not candidate for cardiac cath and cont. medical tx only due to hx of Thrombocytopenia; possible Echo when COVID 19 is cleared to eval LV function 3. Severe Sepsis - on Levophed 4. HTN 5. HLD 6. hx of Cirrhosis 7. COPD 8. Hx of meth abuse and ex-smoker 9. Parox Afib - converted back to SR with HR 50s; on Amiodarone drip which will be changed to PO 200mg qd from today; not on OAC or ASA due to hx of Thrombocytopenia; Monitor his ECG and liver function carefully due to he is on Amio with propofol and hx of cirrhosis; cont. Amio drip for now due to NPO, but not advice amiodarone for fci. 10. Hyperkalemia - Kayexalate was ordered by Dr Hall today MAR reviewed <Addendum> Amiodarone drip and PO will be stopped today since he may not tolerate PO Amio due to high residual and on Dipviran (which cause QT prolongation) and hx of Cirrhosis and thrombocytopenia. Pt. chart and records reviewed. He has changed very little in the last 24hrs. he remains in NSR. His GI residuals are high. Will hold meds per NG tube. At thistime I would stop the IV amiodarone. This could be resumed if the atrial fibrillation resumes. Still poor prognosis. leeanne
[2020-03-02] MEDS ORDERED: Amiodarone 450 MG in Dextrose 5% in Water 250 ML IVPB SCH (11:48)
[2020-03-02] MEDS: Amiodarone 200 MG TAB PO SCH ×2 (12:19→13:14)
[2020-03-02] MEDS: fentaNYL Citrate/PF 2,000 MCG in Sodium Chloride 0.9% 60 ML IV SCH (15:22)
[2020-03-02 15:59] LABS: Potassium 5.2 mmol/L (3.5-5.1)
[2020-03-02] MEDS ORDERED: Furosemide 20 MG/2 ML VIAL SLOW IVP SCH (16:15)
[2020-03-03] MEDS: methylPREDNISolone Sod Succ 40 MG VIAL IVP SCH ×5 (01:05→23:47)
[2020-03-03] MEDS: HumaLOG 300 UNITS/3 ML VIAL SC PRN ×6 (01:51→22:20)
[2020-03-03] MEDS: Propofol 1,000 MG/100 ML VIAL IV PRN ×4 (02:24→19:18)
[2020-03-03] MEDS: Metoclopramide HCl 10 MG/2 ML VIAL IVP SCH ×4 (02:24→22:22)
[2020-03-03 04:53] LABS: ALT (SGPT) 52 U/L (8-55); AST (SGOT) 57 U/L (5-34); Alkaline Phosphatase 89 U/L (40-110); Anion Gap 13 mmol/L (10-20); BUN (Urea Nitrogen) 83 mg/dL (8.4-25.7); Calc. Creatinine Clearance 115 mL/min (70-130); Calcium 7.7 mg/dL (7.8-10.44); Carbon Dioxide 21 mmol/L (23-31); Chloride 110 mmol/L (98-107); Estimated GFR-MDRD 84; Globulin 2.6 g/dL (2.4-3.5); Glucose 207 mg/dL (80-115); Magnesium 2.9 mg/dL (1.6-2.6); Potassium 4.8 mmol/L (3.5-5.1); Protein, Total 5.6 g/dL (5.8-8.1); Sodium 139 mmol/L (136-145)
[2020-03-03 04:57] LABS: Band 4 % (5-11); Eosinophils 1 % (0-10); Hemoglobin 11.9 g/dL (14.0-18.0); Lymphocytes 5 % (21-51); MDiff Complete? YES; Macrocytosis SLIGHT = 6-15 cells (100X) (0-5/hpf); Mean Corpuscular HGB CONC 32.5 g/dL (32.0-36.0); Mean Corpuscular Hemoglobin 33.5 pg (27.0-31.0); Mean Platelet Volume 9.7 fL (7.4-10.4); Monocytes 9 % (0-10); Neutrophil 81 % (42-75); Platelet Count 24 thou/uL (130-400); Platelet Morphology Comment Appears Decreased; Polychromasia SLIGHT = 2-3 cells (100X) (0-2/hpf); RBC Distribution Width 14.4 % (11.5-14.5); Red Blood Cell (RBC) Count 3.57 mill/uL (4.70-6.10); Tear Drops SLIGHT = 2-5 cells (100X) (0-1/hpf); White Blood Cell (WBC) Count 4.8 thou/uL (4.8-10.8)
[2020-03-03] MEDS: Sodium Chloride 0.9% 1,000 ML IV SCH ×2 (07:16→22:23)
[2020-03-03] MEDS: NPH, Human Insulin Isophane 300 UNIT/3 ML VIAL SC SCH ×2 (07:54→22:25)
[2020-03-03 08:05] LABS: Actual Bicarbonate (HCO3a) 22.7 mEq/L (22-28); Base Excess (BEa) -1.7 mEq/L (-2.0 to +3.0); Calcium, Ionized (arterial) 1.15 mmol/L (1.12-1.30); Hemoglobin (Hb) 12.1 g/dL (14.0-18.0); O2 Tension (PaO2), arterial 69.3 mmHg (> 80.0); Potassium - ABG Lab 4.77 mmol/L (3.70-5.30); pH, Arterial 7.41 (7.35-7.45)
[2020-03-03 08:06] LABS: Puncture Site RRA
[2020-03-03] MEDS: Multivits W-Minerals Liquid 15 ML LIQ PER TUBE SCH (09:25)
[2020-03-03] MEDS: Cefepime 2 GM in Sodium Chloride 0.9% 100 ML IVPB SCH ×2 (09:36→22:16)
[2020-03-03] MEDS: Famotidine 20 MG TAB PER TUBE SCH ×2 (09:37→22:00)
--- NOTE | 2020-03-03 10:07 | RAD ---
PORTABLE CHEST: Date: 03/03/2020 HISTORY: Pneumonia. COMPARISON: 03/02/2020 exam. FINDINGS: Endotracheal and NG tubes remain in satisfactory position. There are patchy parenchymal lung changes, more pronounced in the left base and right upper lobe, are felt to be relatively stable as compared to the prior exam. IMPRESSION: Stable exam. POS: [facility]
--- NOTE | 2020-03-03 10:28 | PDOC.FM ---
- Subjective Subjective: No acute events over night. Pt remains intubated and sedated and cannot respond to questions - Objective Vital Signs & Weight: Vital Signs (12 hours) Temp Pulse Resp BP Pulse Ox 03/03/20 10:00 15 03/03/20 08:00 98.1 F 15 100 03/03/20 07:50 74 03/03/20 06:00 15 03/03/20 04:00 98.2 F 20 03/03/20 02:34 81 151/81 H 03/03/20 02:00 18 03/03/20 00:57 80 15 100 03/03/20 00:00 97.3 F L 15 03/02/20 22:35 73 136/77 Weight Admit Weight 92.533 kg Weight 102.8 kg Most Recent Monitor Data Heart Rate from ECG 75 NIBP 134/68 NIBP BP-Mean 90 Respiration from ECG 15 SpO2 99 I&O: 03/02/20 03/03/20 03/04/20 06:59 06:59 06:59 Intake Total 4173.4 3171 30 Output Total 1615 1910 190 Balance 2558.4 1261 -160 Result Diagrams: 03/03/20 04:05 03/03/20 04:05 Radiology: b/l infiltrate on CXR. Stable exam Phys Exam - Physical Examination intubated and sedated HEENT: PERRLA, sclera anicteric vent sounds Cardiovascular: RRR 2/6 systolic murmur Gastrointestinal: soft, no distention hypoactive bowels 2+ pitting edema in b/l LE and b/l arms PERRLA Dx/Plan (1) Thrombocytopenia associated with COVID-19 Code(s): U07.1 - COVID-19; D69.59 - OTHER SECONDARY THROMBOCYTOPENIA Status: Acute (2) 2019 novel coronavirus disease (COVID-19) Code(s): U07.1 - COVID-19 Status: Acute (3) Acute respiratory failure with hypoxia Code(s): J96.01 - ACUTE RESPIRATORY FAILURE WITH HYPOXIA Status: Acute (4) Bilateral pneumonia Code(s): J18.9 - PNEUMONIA, UNSPECIFIED ORGANISM Status: Acute (5) NSTEMI (non-ST elevated myocardial infarction) Code(s): I21.4 - NON-ST ELEVATION (NSTEMI) MYOCARDIAL INFARCTION Status: Acute (6) Thrombocytopenia Code(s): D69.6 - THROMBOCYTOPENIA, UNSPECIFIED Status: Acute (7) Hyperbilirubinemia Code(s): E80.6 - OTHER DISORDERS OF BILIRUBIN METABOLISM Status: Acute - Plan Plan: #Acute hypoxic hypercapneic respiratory failure 2/2 COVID PNA on mechanical ventilation -Intubated, ventilator/respiratory support. PEED titrated down to 12.0 today -Sedation: Propofol, continue sedation vacation -Daily ABG and CXR are stable -Will work to wean as appropriate -CXR today appears mildly improved -S/P tocilizamab and convalescent plasma -Covering with cefepime for bacterial PNA as well due to recent hospitalization -Covid diagnosed on 02/18/20 -Did not qualify for remdesivir -Steroids 02/23 #COVID 19 B/L PNA #Severe sepsis 2/2 above -Requiring levophed, MAPs 70s, titrate as BP tolerates #COVID Myocarditis -Cardiology on board, recs appreciated #Active Hep C -Positive viral load -GI consult upon transfer or here if not transferred today -LFTs worsened day over day #Anemia -Hb 11, stable -Goal 8-10 due to current ACS, monitor daily #Thrombocytopenia -acute drop today -likely 2/2 cirrhosis with superimposed COVID19 -No signs of active bleeding, hold anticoagulation #Hyperglycemia, likely 2/2 steroids -Continue NPH, aggressive sliding scale -Goal <180 #QTc prolongation -Monitor #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 Slightly net negative over last 24 hours #COPD -Managed as above #HTN -Hold any BP meds for the time being #CAD -Continue aspirin and atorvastatin #HLD -As with CAD #Bipolar -Hold meds for now give QTc prolongation PPx - SCD Diet - NG feeds Code Full Dispo: pt is in critical condition with poor prognosis. Currently he is stable and will need more time on the vent if he is to improve. Transfer to [facility] has been accepted, bed currently pending Addendum - Attending - Attending Attestation Date/Time: 03/03/20 1115 I personally evaluated the patient and discussed the management with . [] I agree with the History, Examination, Assessment and Plan documented above with any addition or exceptions noted below. with BUN elevating and platelets down trending, I am concerned his liver failure may be decompensating. repeat coags. If elevating, will call GI. awaiting bed at [facility]. If he is developing worsening liver failure, will discuss with Pulm about proceeding with 2 provider DNR as his chances of surviving this hospitalization are slim given his current COVID infection, ESLD, NSTEMI, and possible SBO vs ileus. Giving lasix to help with fluid retention.
[2020-03-03] MEDS ORDERED: Furosemide 40 MG/4 ML VIAL SLOW IVP SCH (10:30)
[2020-03-03 10:46] LABS: INR-International Normal Ratio 2.8; PTT 34.8 sec (22.9-36.1); Prothrombin Time 29.5 sec (12.0-14.7)
[2020-03-03] MEDS: fentaNYL Citrate/PF 2,000 MCG in Sodium Chloride 0.9% 60 ML IV SCH (22:22)
[2020-03-04] MEDS: Propofol 1,000 MG/100 ML VIAL IV PRN ×4 (00:28→15:53)
[2020-03-04] MEDS: Metoclopramide HCl 10 MG/2 ML VIAL IVP SCH ×3 (02:13→14:36)
--- NOTE | 2020-03-04 05:45 | CON ---
DATE OF CONSULTATION: 03/03/2020 REFERRING: [facility]. REASON FOR CONSULTATION: Abnormal LFTs, prolonged PT and INR, and also thrombocytopenia. HISTORY OF PRESENT ILLNESS: Mr. Win Ortega is an inmate at [facility] unit. Apparently, he was diagnosed to have COVID-19, I believe last week in January and was sent to [facility]. Subsequently, he was discharged back to the [facility] unit. The patient became dyspneic and/or respiratory failure. He was brought to the ER and was hospitalized. He has been in the hospital since the 23 of February. He has been on the ventilator most for the last 9 days. The patient is known to have liver cirrhosis from before. He has also history of coronary artery disease. He has been seen by Cardiology and also is being managed by Dr. Fantasma Hall for his respiratory failure. The patient has had abnormal LFTs for some time now. The liver function tests are slightly elevated. The liver function tests on 02/29/2020 shows bilirubin 2, AST slightly high at 49, ALT 29, alkaline phosphatase 90. Liver function tests remain the same and have gone up slightly now. Today, the bilirubin level has gone up to 3 mg%, the ALT and AST slightly elevated. AST today 57, ALT 52, and alkaline phosphatase 89. His serum albumin is 3 mg%. His lytes are normal. His CBC showed thrombocytopenia with platelet count of around 33,000 to 44,000. Today, it dropped to 24,000. His PT also has gone up to 29.5 and INR 2.8. He has no visible bleeding either in the skin or somewhere. He also has had no hematochezia and no melena. The patient is on ventilator and is sedated. Most of the history was obtained by going over the admitting history and physical and also consult by Dr. Jose Pichardo and also by Dr. Fantasma Hall. MEDICAL ILLNESSES: 1. COVID-19 and respiratory failure, on the ventilator. 2. Chronic obstructive pulmonary disease. 3. Hypertension. 4. Coronary artery disease, non-ST myocardial infarction, possible myocarditis. 5. Hyperlipidemia. 6. Liver cirrhosis. 7. 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 SURGERIES: He has history of inguinal hernia repair in the past. SOCIAL HISTORY: Former smoker. He also has history of methamphetamine use in the past. ALLERGIES: NONE. MEDICATIONS: List reviewed. PHYSICAL EXAMINATION: GENERAL: He is on the ventilator, sedated. VITAL SIGNS: Afebrile. His pulse is around 80, blood pressure is 136/77. HEENT: Mildly icteric. NECK: Supple. CARDIOVASCULAR: Within normal limits. LUNGS: Within normal limits. ABDOMEN: Soft. No organomegaly. No tenderness. No masses. Bowel sounds normal. IMPRESSION: 1. Lab data is abnormal, which shows severe thrombocytopenia, most likely from liver cirrhosis and hypersplenism. 2. Prolonged PT and INR due to liver cirrhosis. 3. COVID-19 positive with respiratory failure. 4. Myocarditis. 5. Acute respiratory failure. 6. Bilateral pneumonia. 7. Myocardial infarction, myocarditis. In view of liver function tests, slightly elevated liver cirrhosis. Also the prolonged PT and INR is because of cirrhosis and also the thrombocytopenia and hypersplenism. There is nothing much has changed except mild drop more of thrombocytopenia. PT/INR is prolonged also. I believe some of the prolonged PT and INR is probably because of the liver cirrhosis and prolonged n.p.o. status. I believe he may benefit by getting vitamin 10 mg injections to get the INR down. At the present time, acute GI problem going on. Most of his liver issues are from the liver cirrhosis and hypersplenism. sepsis and also vitamin K deficiency. RECOMMENDATIONS: 1. Follow up LFTs. 2. Follow up PT/INR. 3. Vitamin K 10 mg p.o. once a day. Job ID: [id number]
[2020-03-04] MEDS: methylPREDNISolone Sod Succ 40 MG VIAL IVP SCH ×3 (05:55→20:12)
[2020-03-04] MEDS ORDERED: Phytonadione 10 MG/ML AMP SLOW IVP SCH (06:00)
--- NOTE | 2020-03-04 06:01 | PRG ---
DATE OF SERVICE: 03/03/2020 SUBJECTIVE: Win Ortega remains in the ICU on the vent, intubated. OBJECTIVE: VITAL SIGNS: Pulse 74, sats 98%, blood pressure 159/72, temperature is 98. His I's and O's have been consistently ahead. His residual was about 220 mL today. CHEST: Decreased breath sounds. No wheezing. No crackles. CARDIAC: Normal S1, S2. No gallops. ABDOMEN: No masses. LABORATORY DATA: Platelet count is further decreased to 24,000; H and H 11, 36; white count 4000. pO2 is 69, pCO2 of 37, PEEP of 13. Lytes are normal. BUN and creatinine are 83 and , still prerenal; glucose 194. Bilirubin is 3. X-ray shows no new infiltrates. ASSESSMENT: 1. Coronavirus positive pneumonia, respiratory failure. 2. Azotemia, prerenal. 3. Severe thrombocytopenia, apparently hepatitis C. 4. Cardiac event includes cardiac arrhythmias. He has not had an echo because he has Coronavirus infection. PLAN: Continue antibiotics. Continue steroids. Continue supportive care. Nutrition as tolerated. [facility]. One-half hour of critical care time. Job ID: [id number]
[2020-03-04 06:37] LABS: Hemoglobin 11.9 g/dL (14.0-18.0); Mean Corpuscular HGB CONC 33.6 g/dL (32.0-36.0); Mean Corpuscular Hemoglobin 35.1 pg (27.0-31.0); Platelet Count 25 thou/uL (130-400); RBC Distribution Width 14.5 % (11.5-14.5); White Blood Cell (WBC) Count 5.4 thou/uL (4.8-10.8)
[2020-03-04 06:38] LABS: ALT (SGPT) 73 U/L (8-55); AST (SGOT) 73 U/L (5-34); Albumin 2.8 g/dL (3.4-4.8); Alkaline Phosphatase 79 U/L (40-110); Anion Gap 9 mmol/L (10-20); BUN (Urea Nitrogen) 87 mg/dL (8.4-25.7); Bilirubin, Total 3.3 mg/dL (0.2-1.2); Calc. Creatinine Clearance 141 mL/min (70-130); Calcium 7.6 mg/dL (7.8-10.44); Carbon Dioxide 27 mmol/L (23-31); Chloride 111 mmol/L (98-107); Estimated GFR-MDRD Greater than 90; Globulin 2.5 g/dL (2.4-3.5); Glucose 218 mg/dL (80-115); Potassium 5.2 mmol/L (3.5-5.1); Protein, Total 5.3 g/dL (5.8-8.1); Sodium 142 mmol/L (136-145)
[2020-03-04] MEDS: HumaLOG 300 UNITS/3 ML VIAL SC PRN ×2 (06:41→16:58)
[2020-03-04 06:54] LABS: Actual Bicarbonate (HCO3a) 23.1 mEq/L (22-28); Base Excess (BEa) -0.7 mEq/L (-2.0 to +3.0); CO2 Tension 35.2 mmHg (35.0-45.0); Calcium, Ionized (arterial) 1.15 mmol/L (1.12-1.30); Carboxyhemoglobin (COHb) 0.7 gm% (0.0-3.0); Hemoglobin (Hb) 12.1 g/dL (14.0-18.0); O2 Tension (PaO2), arterial 92.9 mmHg (> 80.0); Potassium - ABG Lab 4.99 mmol/L (3.70-5.30); pH, Arterial 7.44 (7.35-7.45)
[2020-03-04 06:59] LABS: Puncture Site RRA
[2020-03-04 07:40] LABS: #Lymphocytes 0.3 thou/uL (1.20-3.40); #Monocytes 0.4 thou/uL (0.11-0.59); #Neutrophils 4.8 thou/uL (1.40-6.50); %Eosinophils 0.2 % (0.0-10.0); %Lymphocytes 4.9 % (21.0-51.0); %Monocytes 7.1 % (0.0-10.0); %Neutrophils 87.9 % (42.0-75.0); MDiff Complete? YES; Macrocytosis SLIGHT = 6-15 cells (100X) (0-5/hpf); Platelet Morphology Comment Appears Decreased; Polychromasia SLIGHT = 2-3 cells (100X) (0-2/hpf)
[2020-03-04] MEDS: Cefepime 2 GM in Sodium Chloride 0.9% 100 ML IVPB SCH ×2 (08:36→20:10)
[2020-03-04] MEDS: NPH, Human Insulin Isophane 300 UNIT/3 ML VIAL SC SCH ×2 (08:37→20:17)
[2020-03-04] MEDS: Metoclopramide HCl 10 MG TAB PO SCH ×3 (09:21→20:10)
[2020-03-04] MEDS: Multivits W-Minerals Liquid 15 ML LIQ PER TUBE SCH (09:21)
--- NOTE | 2020-03-04 10:01 | PRG ---
DATE OF SERVICE: 03/04/2020 SUBJECTIVE: Win Ortega remains intubated in the vent, sedated. OBJECTIVE: VITAL SIGNS: Pulse 75, blood pressure 140/73, saturations 90%, respirations 25. GENERAL: He was paralyzed. I's and O's have been good. Still has a large residual. CHEST: No wheezing or crackles. CARDIAC: Normal S1 and S2. No gallops. ABDOMEN: No masses. LABORATORY DATA: Platelet count 25,000, white count 5000. PO2 is 92, pCO2 of 35% 50%, PEEP of 12, 15 rate. BUN and creatinine are slightly better, glucose 195, his bilirubin is 3.3. ASSESSMENT: 1. Respiratory failure, coronavirus positive pneumonia, oxygenation improving. 2. Cirrhosis, hepatitis C. 3. Ileus. 4. Severe thrombocytopenia. PLAN: At this stage is scheduled Reglan. Start cutting back on steroids tomorrow. Hopefully, start some nutrition, avoid paralytics, try and wean slowly. One-half hour of critical care time. Job ID: [id number]
--- NOTE | 2020-03-04 10:13 | PDOC.FM ---
- Subjective Subjective: No acute events over night. No new concerns from nursing. Pt remains sedated and intubated - Objective Vital Signs & Weight: Vital Signs (12 hours) Pulse Resp BP Pulse Ox 03/04/20 08:00 10 L 98 03/04/20 07:13 75 131/69 03/04/20 06:00 15 03/04/20 04:00 20 03/04/20 02:37 74 03/04/20 02:36 74 15 96 03/04/20 02:00 15 03/04/20 00:00 15 03/03/20 22:14 75 125/71 Weight Admit Weight 92.533 kg Weight 102 kg Most Recent Monitor Data Heart Rate from ECG 73 NIBP 143/71 NIBP BP-Mean 95 Respiration from ECG 11 SpO2 99 I&O: 03/03/20 03/04/20 03/05/20 06:59 06:59 06:59 Intake Total 3171 2744 30 Output Total 1910 2740 150 Balance 1261 4 -120 Result Diagrams: 03/04/20 06:00 03/04/20 06:00 Phys Exam - Physical Examination Intubated and sedated HEENT: PERRLA Respiratory: clear to auscultation bilateral Cardiovascular: RRR 2/6 systolic murmur, distant heart sounds Gastrointestinal: soft, non-tender stable pitting edema in hands and feet PERRLA Dx/Plan (1) Thrombocytopenia associated with COVID-19 Code(s): U07.1 - COVID-19; D69.59 - OTHER SECONDARY THROMBOCYTOPENIA Status: Acute (2) 2018 novel coronavirus disease (COVID-19) Code(s): U07.1 - COVID-19 Status: Acute (3) Acute respiratory failure with hypoxia Code(s): J96.01 - ACUTE RESPIRATORY FAILURE WITH HYPOXIA Status: Acute (4) Bilateral pneumonia Code(s): J18.9 - PNEUMONIA, UNSPECIFIED ORGANISM Status: Acute (5) NSTEMI (non-ST elevated myocardial infarction) Code(s): I21.4 - NON-ST ELEVATION (NSTEMI) MYOCARDIAL INFARCTION Status: Acute (6) Thrombocytopenia Code(s): D69.6 - THROMBOCYTOPENIA, UNSPECIFIED Status: Acute (7) Hyperbilirubinemia Code(s): E80.6 - OTHER DISORDERS OF BILIRUBIN METABOLISM Status: Acute (8) Elevated INR Code(s): R79.1 - ABNORMAL COAGULATION PROFILE Status: Acute - Plan Plan: #Acute hypoxic hypercapneic respiratory failure 2/2 COVID PNA on mechanical ventilation -Intubated, ventilator/respiratory support. PEED titrated down to 11.0 today -Sedation: Propofol -Daily ABG and CXR are stable -Will work to wean as appropriate -S/P tocilizamab and convalescent plasma -Covid diagnosed on 02/18/20 -Did not qualify for remdesivir -Steroids 02/23 #COVID 19 B/L PNA #Severe sepsis 2/2 above -LISSY stable off of pressers #COVID Myocarditis -Cardiology on board, recs appreciated #Active Hep C -Positive viral load -GI consult upon transfer or here if not transferred today -LFTs worsened day over day #Anemia -Hb 11, stable -Goal 8-10 due to current ACS, monitor daily #Thrombocytopenia -remains low, but stable -likely 2/2 cirrhosis with superimposed COVID19 -No signs of active bleeding, hold anticoagulation #elevated INR - GI on board. s/p Vit K. Continue to monitor #Hyperglycemia, likely 2/2 steroids -Continue NPH, aggressive sliding scale -Goal <180 #QTc prolongation -Monitor #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 Slightly net negative over last 24 hours #COPD -Managed as above #HTN -Hold any BP meds for the time being #CAD -Continue aspirin and atorvastatin #HLD -As with CAD #Bipolar -Hold meds for now give QTc prolongation PPx - SCD Diet - NG feeds Code Full Dispo: pt is in critical condition with poor prognosis. Currently he is stable and will need more time on the vent if he is to improve. Transfer to [facility] has been accepted, bed currently pending Addendum - Attending - Attending Attestation Date/Time: 03/04/20 1117 I personally evaluated the patient and discussed the management with Dr. Damon I agree with the History, Examination, Assessment and Plan documented above with any addition or exceptions noted below. Still waiting bed at [facility]. Weaning from vent. liver function stable overnight. continue diuresis since still significantly fluid up. Started vit k per GI. Will trend INR. BUN and Cr stable today. K uptrending again. Will monitor closely. Overall prognosis is guarded although he is making progress on vent weaning.
--- NOTE | 2020-03-04 12:43 | RAD ---
PORTABLE CHEST: HISTORY: Pneumonia followup. COMPARISON: 03/03/20 FINDINGS: ET tube and NG tube remain in place. The peripheral infiltrates on the left, seen on the prior study, are less pronounced today. The lungs show improved aeration. Hazy infiltrate in the right upper lung noted previously is also less apparent. IMPRESSION: Improvement in the appearance of the lung allen. POS: [facility]
[2020-03-04] MEDS: Sodium Chloride 0.9% 1,000 ML IV SCH (14:37)
[2020-03-04] MEDS: Sterile Water 10 ML ONE (16:23)
[2020-03-04] MEDS: Vecuronium 10 MG VIAL IVP PRN ×2 (16:23→22:37)
[2020-03-04] MEDS: fentaNYL Citrate/PF 2,000 MCG in Sodium Chloride 0.9% 60 ML IV SCH (20:10)
[2020-03-04] MEDS ORDERED: Sterile Water 10 ML ONE (22:34)
[2020-03-05] MEDS: Propofol 1,000 MG/100 ML VIAL IV PRN ×4 (00:43→23:14)
[2020-03-05] MEDS: Vecuronium 10 MG VIAL IVP PRN ×3 (01:45→23:13)
[2020-03-05] MEDS: Sterile Water 10 ML ONE ×2 (01:45→23:13)
[2020-03-05 04:42] LABS: INR-International Normal Ratio 2.5; Prothrombin Time 26.6 sec (12.0-14.7)
[2020-03-05 04:53] LABS: ALT (SGPT) 88 U/L (8-55); AST (SGOT) 83 U/L (5-34); Alkaline Phosphatase 91 U/L (40-110); Anion Gap 11 mmol/L (10-20); BUN (Urea Nitrogen) 82 mg/dL (8.4-25.7); Bilirubin, Total 4.4 mg/dL (0.2-1.2); Calc. Creatinine Clearance 153 mL/min (70-130); Calcium 7.8 mg/dL (7.8-10.44); Carbon Dioxide 24 mmol/L (23-31); Chloride 114 mmol/L (98-107); Estimated GFR-MDRD Greater than 90; Globulin 2.8 g/dL (2.4-3.5); Glucose 159 mg/dL (80-115); Potassium 5.6 mmol/L (3.5-5.1); Protein, Total 5.8 g/dL (5.8-8.1); Sodium 143 mmol/L (136-145)
[2020-03-05] MEDS ORDERED: Sterile Water 10 ML ONE ×2 (05:31→23:06)
[2020-03-05] MEDS: Sodium Chloride 0.9% 1,000 ML IV SCH (05:34)
[2020-03-05 06:35] LABS: #Lymphocytes 0.6 thou/uL (1.20-3.40); #Monocytes 1.2 thou/uL (0.11-0.59); #Neutrophils 15.2 thou/uL (1.40-6.50); %Eosinophils 0.1 % (0.0-10.0); %Lymphocytes 3.6 % (21.0-51.0); %Monocytes 7.2 % (0.0-10.0); %Neutrophils 89.1 % (42.0-75.0); Hemoglobin 13.7 g/dL (14.0-18.0); MDiff Complete? YES; Mean Corpuscular HGB CONC 33.6 g/dL (32.0-36.0); Mean Corpuscular Hemoglobin 35.5 pg (27.0-31.0); Mean Platelet Volume 10.5 fL (7.4-10.4); Platelet Count 39 thou/uL (130-400); Platelet Morphology Comment Appears Decreased; RBC Distribution Width 14.8 % (11.5-14.5); Red Blood Cell (RBC) Count 3.87 mill/uL (4.70-6.10); Toxic Granulation SLIGHT; Vacuoles SLIGHT; White Blood Cell (WBC) Count 17.1 thou/uL (4.8-10.8)
--- NOTE | 2020-03-05 07:01 | PDOC.FM ---
- Subjective Subjective: NAEO per nursing. Still no BM. Patient sedated & intubated so unable to obtai history. - Objective MAR Reviewed: Yes Vital Signs & Weight: Vital Signs (12 hours) Temp Pulse Resp BP Pulse Ox 03/05/20 04:00 97.6 F 03/05/20 02:17 67 132/67 03/05/20 02:00 10 L 03/05/20 00:47 74 14 99 03/05/20 00:00 97.6 F 12 03/04/20 22:07 70 112/58 L 03/04/20 22:00 16 03/04/20 20:00 14 100 Weight Admit Weight 92.533 kg Weight 102 kg Most Recent Monitor Data Heart Rate from ECG 73 NIBP 151/76 NIBP BP-Mean 101 Respiration from ECG 10 SpO2 100 I&O: 03/03/20 03/04/20 03/05/20 06:59 06:59 06:59 Intake Total 3171 2744 1207 Output Total 1910 2740 1635 Balance 1261 4 -428 Result Diagrams: 03/05/20 06:02 03/05/20 04:08 Phys Exam - Physical Examination Constitutional: NAD sedated and intubated Respiratory: no wheezing, clear to auscultation bilateral Cardiovascular: RRR, no significant murmur Gastrointestinal: soft, no distention hand and lower extremity edema paralyzed Dx/Plan (1) 2019 novel coronavirus disease (COVID-19) Code(s): U07.1 - COVID-19 Status: Acute (2) Acute respiratory failure with hypoxia Code(s): J96.01 - ACUTE RESPIRATORY FAILURE WITH HYPOXIA Status: Acute (3) Bilateral pneumonia Code(s): J18.9 - PNEUMONIA, UNSPECIFIED ORGANISM Status: Acute (4) Cirrhosis Code(s): K74.60 - UNSPECIFIED CIRRHOSIS OF LIVER Status: Acute (5) NSTEMI (non-ST elevated myocardial infarction) Code(s): I21.4 - NON-ST ELEVATION (NSTEMI) MYOCARDIAL INFARCTION Status: Acute (6) Thrombocytopenia Code(s): D69.6 - THROMBOCYTOPENIA, UNSPECIFIED Status: Acute - Plan Plan: Acute hypoxic hypercapneic respiratory failure 2/2 COVID PNA on mechanical ventilation -Intubated, ventilator/respiratory support. Pulm on board, recs appreciated -Sedation: Propofol -CXR improved today, weaning off of paralytics -S/P tocilizamab and convalescent plasma -Day 7 of cefepime -Covid diagnosed on 02/18/20 -Did not qualify for remdesivir -Steroids 02/23 Hyperkalemia -Lasix x1, insulin this AM -Rpt BMP this afternon -Give another dose of lasix COVID 19 B/L PNA Severe sepsis 2/2 above -BP stable off of pressers -BCx negative Leukocytosis -WBC inc from 5 to 17, afebrile -On steroids, no bands or other SIRS criteria met - Monitor and workup if develops fever Hyperbilirubinemia Secondary to cirrhosis Stable, monitor COVID Myocarditis -Cardiology on board, recs appreciated Active Hep C -Positive viral load -GI following, will need antivirals when transfers hopefuly today Anemia -Hb 11, stable -Goal 8-10 due to current ACS, monitor daily Thrombocytopenia -Stable, no active signs of bleeding -likely 2/2 cirrhosis with superimposed COVID19 -Hold anticoagulation elevated INR - PT 29 > 26 - GI on board. Continue Vit K Hyperglycemia, likely 2/2 steroids -Continue NPH, aggressive sliding scale -Goal <180 QTc prolongation -Stable. Monitor Cirrhosis -Child-Richards class B Active hepatitis C +Ab, +RNA titers GI on board Edema - give lasix again today. Slightly net negative over last 24 hours COPD -Managed as above HTN -Hold any BP meds for the time being CAD -Continue aspirin and atorvastatin HLD -As with CAD Bipolar -Hold meds for now give QTc prolongation PPx - SCD Diet - NG feeds/held Code Full Dispo: pt is in critical condition with poor prognosis due to difficulty in weaning vent and multiple comorbidities. Currently he is stable-Transfer to [facility] has been accepted, bed currently pending Addendum - Attending - Attending Attestation Date/Time: 03/05/20 6471 I personally evaluated the patient and discussed the management with Dr. Buenrostro. I agree with the History, Examination, Assessment and Plan documented above with any addition or exceptions noted below. Continue treatment for COVID19 pneumonia and resp failure. Transfer to [facility] pending. Vent mgmt per pulm. XR shows some improvement. Treatment complicated by presence of cirrhosis. Needs diuresis.
[2020-03-05 07:17] LABS: Actual Bicarbonate (HCO3a) 25.8 mEq/L (22-28); Base Excess (BEa) -1.6 mEq/L (-2.0 to +3.0); CO2 Tension 55.1 mmHg (35.0-45.0); Calcium, Ionized (arterial) 1.23 mmol/L (1.12-1.30); Carboxyhemoglobin (COHb) 1.7 gm% (0.0-3.0); Hemoglobin (Hb) 13.3 g/dL (14.0-18.0); O2 Tension (PaO2), arterial 90.6 mmHg (> 80.0); pH, Arterial 7.29 (7.35-7.45)
[2020-03-05 07:36] LABS: Puncture Site RBRACH
[2020-03-05 07:37] LABS: ALV-art Gradient 125.725 (0-20)
[2020-03-05] MEDS ORDERED: Furosemide 20 MG/2 ML VIAL SLOW IVP SCH ×2 (09:00→14:00)
[2020-03-05] MEDS: Cefepime 2 GM in Sodium Chloride 0.9% 100 ML IVPB SCH ×2 (09:05→23:14)
[2020-03-05] MEDS: methylPREDNISolone Sod Succ 40 MG VIAL IVP SCH ×2 (09:06→23:14)
[2020-03-05] MEDS: Multivits W-Minerals Liquid 15 ML LIQ PER TUBE SCH (09:07)
[2020-03-05] MEDS: NPH, Human Insulin Isophane 300 UNIT/3 ML VIAL SC SCH ×2 (09:08→23:15)
[2020-03-05] MEDS: Metoclopramide HCl 10 MG TAB PO SCH ×3 (09:35→23:15)
--- NOTE | 2020-03-05 09:43 | PRG ---
DATE OF SERVICE: 03/05/2020 SUBJECTIVE: This morning, he is still intubated, still sedated, and given paralytics. OBJECTIVE: VITAL SIGNS: Pulse 76, blood pressure 169/80, respiratory rate 18, saturations 100%. His I's and O's have been even. CHEST: No wheezing or crackles. CARDIAC: Normal S1 and S2. No gallops. ABDOMEN: Soft. LABORATORY DATA: Creatinine is normal, potassium 5.6. Liver function elevated. Bilirubin 4.4. X-ray shows improvement of bilateral pulmonary infiltrates. PO2 is 90, pCO2 of , rate of 10, PEEP of 11. White count . IMPRESSION: Cauterized pneumonia, respiratory failure, acute respiratory distress syndrome, hepatitis C, history of congestive heart failure. We will try to get him to [place]. A vent is being changed. We will try to get him nutrition. He tolerated feedings today. This is one-half hour of critical care time. Job ID: [id number]
[2020-03-05] MEDS ORDERED: Phytonadione 10 MG/ML AMP SLOW IVP SCH ×3 (10:45→14:00)
--- NOTE | 2020-03-05 11:40 | RAD ---
PORTABLE CHEST: HISTORY: Respiratory distress. COMPARISON: Prior day's study. FINDINGS: Endotracheal and NG tubes are in satisfactory position. Heart and mediastinal structures are within normal limits. Some minimal infiltrative changes on the left are felt to be fairly stable as compare d to the prior study. IMPRESSION: Stable exam. POS: [facility]
--- NOTE | 2020-03-05 11:41 | PRG ---
DATE OF SERVICE: 03/04/2020 SUBJECTIVE: This is a 64-year-old male with COVID-19 infection, respiratory failure, myocarditis, history of myocardial infarction. He also has liver cirrhosis. The patient on ventilator over the last several days since admission. The patient has had abnormal LFTs since admission and remains mildly elevated. His thrombocytopenia is getting worse and also PT/INR is prolonged. The patient is on vitamin K. The patient accepted transfer to [facility] and transfer is awaited because of lack of bed. The patient had no change in his overall clinical status. He remains on the ventilator. OBJECTIVE: VITAL SIGNS: Stable. Pulse is 69, blood pressure 133/73. CARDIOVASCULAR: Normal heart sounds. LUNGS: Clear to auscultation. ABDOMEN: Soft and nontender. Nondistended. LABORATORY DATA: From today, hemoglobin 11.9, hematocrit 30.6, platelet count 25,000. Chem-7, potassium 5.2, chloride 111, bicarb 27, BUN is 87, creatinine is 0.79, glucose 194, calcium is 7.6. Bilirubin 3.3, AST 73, ALT 73, alkaline phosphatase 79, albumin 2.8. RECOMMENDATION: 1. Continue supportive care. 2. Continue vitamin K. 3. Followup labs. Job ID: [id number]
[2020-03-05] MEDS: HumaLOG 300 UNITS/3 ML VIAL SC PRN (14:35)
[2020-03-05] MEDS ORDERED: Milk Of Magnesia 30 ML UDCUP PO PRN (14:50)
[2020-03-05] MEDS ORDERED: Bisacodyl 10 MG SUPP PR PRN (14:50)
[2020-03-05] MEDS: fentaNYL Citrate/PF 2,000 MCG in Sodium Chloride 0.9% 60 ML IV SCH (15:56)
[2020-03-05 17:55] LABS: Anion Gap 12 mmol/L (10-20); BUN (Urea Nitrogen) 76 mg/dL (8.4-25.7); Calc. Creatinine Clearance 149 mL/min (70-130); Calcium 7.9 mg/dL (7.8-10.44); Carbon Dioxide 27 mmol/L (23-31); Chloride 112 mmol/L (98-107); Estimated GFR-MDRD Greater than 90; Glucose 202 mg/dL (80-115); Potassium 5.4 mmol/L (3.5-5.1); Sodium 146 mmol/L (136-145)
[2020-03-05] MEDS ORDERED: Vecuronium 10 MG VIAL ONE (23:06)
[2020-03-06] MEDS ORDERED: Sterile Water 10 ML ONE ×2 (00:51→03:35)
[2020-03-06] MEDS: Vecuronium 10 MG VIAL IVP PRN ×2 (01:00→03:40)
[2020-03-06] MEDS: Sodium Chloride 0.9% 1,000 ML IV SCH ×2 (02:10→10:37)
[2020-03-06] MEDS: Propofol 1,000 MG/100 ML VIAL IV PRN ×2 (02:13→16:21)
[2020-03-06 04:12] LABS: INR-International Normal Ratio 2.2; Prothrombin Time 24.2 sec (12.0-14.7)
[2020-03-06 04:34] LABS: ALT (SGPT) 85 U/L (8-55); AST (SGOT) 75 U/L (5-34); Albumin 2.9 g/dL (3.4-4.8); Alkaline Phosphatase 103 U/L (40-110); Anion Gap 12 mmol/L (10-20); BUN (Urea Nitrogen) 87 mg/dL (8.4-25.7); Bilirubin, Total 6.4 mg/dL (0.2-1.2); Calc. Creatinine Clearance 155 mL/min (70-130); Calcium 7.7 mg/dL (7.8-10.44); Carbon Dioxide 27 mmol/L (23-31); Chloride 113 mmol/L (98-107); Estimated GFR-MDRD Greater than 90; Globulin 2.6 g/dL (2.4-3.5); Glucose 189 mg/dL (80-115); Magnesium 3.3 mg/dL (1.6-2.6); Potassium 5.6 mmol/L (3.5-5.1); Protein, Total 5.5 g/dL (5.8-8.1); Sodium 146 mmol/L (136-145)
[2020-03-06 05:50] LABS: Anisocytosis SLIGHT = 6-15 cells (100X) (0-5/hpf); Band 6 % (5-11); Hemoglobin 13.5 g/dL (14.0-18.0); Lymphocytes 3 % (21-51); MDiff Complete? YES; Mean Corpuscular HGB CONC 31.7 g/dL (32.0-36.0); Mean Corpuscular Hemoglobin 33.9 pg (27.0-31.0); Mean Platelet Volume 9.7 fL (7.4-10.4); Neutrophil 91 % (42-75); Platelet Count 36 thou/uL (130-400); Platelet Morphology Comment Appears Decreased; RBC Distribution Width 14.7 % (11.5-14.5); Red Blood Cell (RBC) Count 3.98 mill/uL (4.70-6.10); White Blood Cell (WBC) Count 23.3 thou/uL (4.8-10.8)
[2020-03-06 07:31] LABS: Actual Bicarbonate (HCO3a) 30.3 mEq/L (22-28); Base Excess (BEa) 2.3 mEq/L (-2.0 to +3.0); Carboxyhemoglobin (COHb) 1.5 gm% (0.0-3.0); Hemoglobin (Hb) 13.8 g/dL (14.0-18.0); O2 Tension (PaO2), arterial 94.5 mmHg (> 80.0); Potassium - ABG Lab 5.68 mmol/L (3.70-5.30); pH, Arterial 7.31 (7.35-7.45)
--- NOTE | 2020-03-06 07:33 | PDOC.FM ---
- Subjective Subjective: Was stacking breaths on ventilator when paralytics stopped so placed back on, given two rounds of vecuronium. Still intubated and on sedation, no active movement. No other acute events per nursing. - Objective Vital Signs & Weight: Vital Signs (12 hours) Pulse Resp BP Pulse Ox 03/06/20 06:00 10 L 03/06/20 04:00 10 L 03/06/20 02:46 92 172/94 H 03/06/20 02:00 10 L 03/06/20 00:14 91 194/102 H 03/06/20 00:13 89 10 L 100 03/06/20 00:00 10 L 03/05/20 22:14 84 162/82 H 03/05/20 22:00 10 L 03/05/20 20:00 14 100 Weight Admit Weight 92.533 kg Weight 101.1 kg Most Recent Monitor Data Heart Rate from ECG 86 NIBP 139/82 NIBP BP-Mean 101 Respiration from ECG 10 SpO2 100 I&O: 03/05/20 03/06/20 03/07/20 06:59 06:59 06:59 Intake Total 2340 2543 Output Total 2095 3045 Balance 245 -502 Result Diagrams: 03/06/20 03:43 03/06/20 03:30 Phys Exam - Physical Examination sedated and intubated Respiratory: no wheezing, clear to auscultation bilateral Cardiovascular: RRR, no significant murmur Gastrointestinal: soft, non-tender, positive bowel sounds 1+ edema in hands and lower extremities unable to assess Deviation from normal: multiple tattoos Dx/Plan (1) 2019 novel coronavirus disease (COVID-19) Code(s): U07.1 - COVID-19 Status: Acute (2) Acute respiratory failure with hypoxia Code(s): J96.01 - ACUTE RESPIRATORY FAILURE WITH HYPOXIA Status: Acute (3) Bilateral pneumonia Code(s): J18.9 - PNEUMONIA, UNSPECIFIED ORGANISM Status: Acute (4) Cirrhosis Code(s): K74.60 - UNSPECIFIED CIRRHOSIS OF LIVER Status: Acute (5) NSTEMI (non-ST elevated myocardial infarction) Code(s): I21.4 - NON-ST ELEVATION (NSTEMI) MYOCARDIAL INFARCTION Status: Acute (6) Thrombocytopenia Code(s): D69.6 - THROMBOCYTOPENIA, UNSPECIFIED Status: Acute - Plan Plan: Acute hypoxic hypercapneic respiratory failure 2/2 COVID PNA on mechanical ventilation -Intubated, ventilator/respiratory support. Pulm on board, recs appreciated -Sedation: Propofol -CXR improved today, d/c paralytics and sedation. Xanax for anxiety. -S/P tocilizamab and convalescent plasma -Day 8 of cefepime -Covid diagnosed on 02/18/20 -Did not qualify for remdesivir -Steroids 02/23 -Respiratory acidosis with metabolic compensation (PEEP 10, Psupp 10, TV 500, [id number], Rate 10) Consider increasing rate Hyperkalemia -K 5.6 -Lasix today -Repeat this afternoon SIRS -Leukocytosis 23, with new development of bandemia. P 98. -Obtain UA, Bcx, procal -On cefepime -If develops fever can d/c central line but will need midline placed for peripheral access. Hypernatremia -146, 2.6L free water deficit Edema -Third spacing but, BPs mildly high -20IV lasix with albumin to inc. oncotic pressure. Continue NS at 70cc/hr Ileus -Improving. Had BM yesterday. -Continue reglan and stool softener -Resume OGT feeds at low rate COVID 19 B/L PNA Severe sepsis 2/2 above -BP stable off of pressers -BCx negative Hyperbilirubinemia Secondary to cirrhosis 4 > 6.4, worsening D/c paralytics/sedation Transaminase markers stable COVID Myocarditis -Cardiology on board, recs appreciated Active Hep C -Positive viral load -GI following, will need antivirals when transfers hopefuly today Anemia -Hb stable -Goal 8-10 due to current ACS, monitor daily Thrombocytopenia -Stable, no active signs of bleeding -likely 2/2 cirrhosis with superimposed COVID19 -Hold anticoagulation elevated INR - PT 29 > 26 >26 - GI on board. Continue Vit K Hyperglycemia, likely 2/2 steroids -Continue NPH, aggressive sliding scale -Goal <180 QTc prolongation -Stable. Monitor Cirrhosis -Child-Richards class B Active hepatitis C +Ab, +RNA titers GI on board COPD -Managed as above HTN -Hold any BP meds for the time being CAD -Continue aspirin and atorvastatin HLD -As with CAD Bipolar -Hold meds for now give QTc prolongation PPx - SCD. Lovenox contraindicated due to thrombocytopenia Diet - NG feeds Code Full Dispo: pt is in critical condition with poor prognosis due to difficulty in weaning vent and multiple comorbidities. Currently he is stable-Transfer to [facility] has been accepted, bed currently pending Addendum - Attending - Attending Attestation Date/Time: 03/06/20 4861 I personally evaluated the patient and discussed the management with Dr. Buenrostro. I agree with the History, Examination, Assessment and Plan documented above with any addition or exceptions noted below. Patient overall stable. Continue vent mgmt per Pulm. CXR appears improved, but biggest issues with extubation currently appear to be related to mentation/ agitation as well as volume status. He will be getting Albumin today along with Lasix. He is also in some need of free water and will increase free water flushes with tube feeds. Hopefully the albumin will help keep him from further third spacing. Liver function overall stable though TBili has increased significantly. Still pending transfer to [facility]. Guarded prognosis. Continue diuresis.
[2020-03-06 07:37] LABS: CO2 Tension 62.1 mmHg (35.0-45.0)
[2020-03-06 07:38] LABS: ALV-art Gradient 113.075 (0-20); Puncture Site RB
--- NOTE | 2020-03-06 07:57 | RAD ---
CHEST 1 VIEW: INDICATION: History of pneumonia. COMPARISON: Prior exam dated 03/05/2020. FINDINGS: Patchy ground-glass airspace disease within the left mid lung and left lower lobe persists. Right phil ng is relatively clear. Heart size is within normal limits. The patient remains intubated with paddy yarely catheter placement. No pleural effusion or pneumothorax is evident. IMPRESSION: Stable exam. POS: BH
--- NOTE | 2020-03-06 09:06 | PRG ---
DATE OF SERVICE: 03/06/2020 SUBJECTIVE: Win Ortega remains intubated in the vent. He was breath stacking last night. His paralytics were restarted again. OBJECTIVE: VITAL SIGNS: His temperature is 97, pulse 79, blood pressure 130/83, respirations 20. He is afebrile. His I's and O's have been consistently even, though apparently he has some edema, he is weeping. CHEST: No wheezing or crackles. CARDIAC: Normal S1 and S2. No gallops. ABDOMEN: No masses. NEUROLOGIC: He is sedated. LABORATORY DATA: PO2 is 94, pCO2 of , PEEP of 10. White count is 23,000, hemoglobin and hematocrit of 13 and 42, platelet count is 36. ASSESSMENT: Worsening liver function, hepatitis C, coronavirus pneumonia, respiratory failure, azotemia, prerenal low albumin. PLAN: We are trying to avoid paralytics. Continue low-dose sedation. Continue steroids. Continue Maxipime. We will decrease his rate to see whether they can decrease his auto-peeping effect and his PEEP related. We eventually trying to get a place in [place]. One-half hour of critical care time. Job ID: [id number]
[2020-03-06] MEDS ORDERED: Albumin 25% 25 GM/100 ML BOT IVPB ONE (09:55)
[2020-03-06] MEDS ORDERED: Furosemide 20 MG/2 ML VIAL SLOW IVP SCH (10:00)
[2020-03-06] MEDS ORDERED: Sodium Chloride 0.9% (PF) 10 ML VIAL FS PRN (10:02)
[2020-03-06] MEDS: Cefepime 2 GM in Sodium Chloride 0.9% 100 ML IVPB SCH ×2 (10:35→21:41)
[2020-03-06] MEDS: methylPREDNISolone Sod Succ 40 MG VIAL IVP SCH ×2 (10:36→21:43)
[2020-03-06] MEDS: Metoclopramide HCl 10 MG TAB PO SCH ×3 (10:37→21:42)
[2020-03-06] MEDS: Multivits W-Minerals Liquid 15 ML LIQ PER TUBE SCH (10:37)
[2020-03-06] MEDS: NPH, Human Insulin Isophane 300 UNIT/3 ML VIAL SC SCH ×2 (11:26→21:42)
[2020-03-06] MEDS ORDERED: Fentanyl BOLUS 250 ML IVPB PRN (12:08)
[2020-03-06] MEDS ORDERED: fentaNYL Citrate/PF 2,000 MCG in Sodium Chloride 0.9% 60 ML IV SCH (12:15)
[2020-03-06 12:19] LABS: Bacteria/HPF None Seen HPF (None Seen); Bilirubin Negative (Negative); Blood, Urine 1+ (Negative); Clarity Clear (Clear); Glucose, Urine (Dipstick) Normal (Negative); Leukocyte Negative Leu/uL (Negative); Nitrite Negative (Negative); Protein, Urine (Dipstick) 10 mg/dL (Neg-Trace); Squamous Epithelial None Seen HPF (0-3); Urobilinogen Normal mg/dL (Less than 2)
[2020-03-06 12:29] LABS: Urine Culture Reflex Yes Yes; Yeast-Budding 1+ HPF (None Seen)
[2020-03-06] MEDS: HumaLOG 300 UNITS/3 ML VIAL SC PRN (18:48)
[2020-03-06] MEDS ORDERED: Pantoprazole 40 MG VIAL IVP SCH (21:00)
[2020-03-07] MEDS: Sodium Chloride 0.9% 1,000 ML IV SCH (01:28)
[2020-03-07] MEDS: Famotidine 20 MG TAB PER TUBE SCH ×3 (02:53→03:00)
[2020-03-07 03:16] LABS: Bacteria/HPF None Seen HPF (None Seen); Bilirubin Negative (Negative); Blood, Urine 2+ (Negative); Clarity Clear (Clear); Glucose, Urine (Dipstick) Normal (Negative); Leukocyte 250 Leu/uL (Negative); Nitrite Negative (Negative); Protein, Urine (Dipstick) 30 mg/dL (Neg-Trace); RBC/HPF 21-50 HPF (0-3); Squamous Epithelial None Seen HPF (0-3); Urobilinogen Normal mg/dL (Less than 2); WBC/HPF Greater than 50 HPF (0-3)
[2020-03-07 04:13] LABS: INR-International Normal Ratio 2.2; Prothrombin Time 24.5 sec (12.0-14.7)
[2020-03-07 04:28] LABS: ALT (SGPT) 87 U/L (8-55); AST (SGOT) 94 U/L (5-34); Albumin 3.1 g/dL (3.4-4.8); Alkaline Phosphatase 81 U/L (40-110); Anion Gap 10 mmol/L (10-20); BUN (Urea Nitrogen) 90 mg/dL (8.4-25.7); Bilirubin, Total 7.2 mg/dL (0.2-1.2); Calc. Creatinine Clearance 156 mL/min (70-130); Calcium 8.1 mg/dL (7.8-10.44); Carbon Dioxide 30 mmol/L (23-31); Chloride 114 mmol/L (98-107); Estimated GFR-MDRD Greater than 90; Globulin 2.3 g/dL (2.4-3.5); Glucose 174 mg/dL (80-115); Potassium 5.4 mmol/L (3.5-5.1); Protein, Total 5.4 g/dL (5.8-8.1); Sodium 149 mmol/L (136-145)
[2020-03-07 04:29] LABS: #Lymphocytes 0.7 thou/uL (1.20-3.40); #Monocytes 1.2 thou/uL (0.11-0.59); #Neutrophils 16.4 thou/uL (1.40-6.50); %Basophils 0.1 % (0.0-1.0); %Eosinophils 0.1 % (0.0-10.0); %Lymphocytes 3.6 % (21.0-51.0); %Monocytes 6.6 % (0.0-10.0); %Neutrophils 89.6 % (42.0-75.0); Hemoglobin 11.9 g/dL (14.0-18.0); MDiff Complete? YES; Mean Corpuscular HGB CONC 31.4 g/dL (32.0-36.0); Mean Corpuscular Hemoglobin 33.8 pg (27.0-31.0); Mean Platelet Volume 10.8 fL (7.4-10.4); Platelet Count 27 thou/uL (130-400); Platelet Morphology Comment Appears Decreased; RBC Distribution Width 14.9 % (11.5-14.5); Red Blood Cell (RBC) Count 3.52 mill/uL (4.70-6.10); Toxic Granulation SLIGHT; White Blood Cell (WBC) Count 18.3 thou/uL (4.8-10.8)
[2020-03-07] MEDS: HumaLOG 300 UNITS/3 ML VIAL SC PRN (04:34)
--- NOTE | 2020-03-07 06:54 | PDOC.FM ---
- Subjective Subjective: NAEO. Continues breath stacking. All sedation off, low rate infusion of fentanyl. Patient intubated, cannot provide history. - Objective Vital Signs & Weight: Vital Signs (12 hours) Temp Pulse Resp BP Pulse Ox 03/07/20 06:00 16 03/07/20 04:00 16 03/07/20 02:40 92 03/07/20 02:00 16 03/07/20 01:18 93 12 100 03/07/20 01:02 90 160/83 H 03/07/20 00:00 16 03/06/20 22:00 16 03/06/20 21:48 89 03/06/20 20:00 97.8 F 16 100 Weight Admit Weight 92.533 kg Weight 100 kg Most Recent Monitor Data Heart Rate from ECG 95 NIBP 144/86 NIBP BP-Mean 105 Respiration from ECG 7 SpO2 100 I&O: 03/05/20 03/06/20 03/07/20 06:59 06:59 06:59 Intake Total 2340 4373 2898 Output Total 0444 2865 2014 Balance 245 -502 883 Result Diagrams: 03/07/20 03:45 03/07/20 03:45 Phys Exam - Physical Examination Constitutional: NAD HEENT: sclera anicteric Dx/Plan (1) 2019 novel coronavirus disease (COVID-19) Code(s): U07.1 - COVID-19 Status: Acute (2) Acute respiratory failure with hypoxia Code(s): J96.01 - ACUTE RESPIRATORY FAILURE WITH HYPOXIA Status: Acute (3) Bilateral pneumonia Code(s): J18.9 - PNEUMONIA, UNSPECIFIED ORGANISM Status: Acute (4) Cirrhosis Code(s): K74.60 - UNSPECIFIED CIRRHOSIS OF LIVER Status: Acute (5) NSTEMI (non-ST elevated myocardial infarction) Code(s): I21.4 - NON-ST ELEVATION (NSTEMI) MYOCARDIAL INFARCTION Status: Acute (6) Thrombocytopenia Code(s): D69.6 - THROMBOCYTOPENIA, UNSPECIFIED Status: Acute - Plan Plan: Acute hypoxic hypercapneic respiratory failure 2/2 COVID PNA on mechanical ventilation -Intubated, ventilator/respiratory support. Pulm on board, recs appreciated -Sedation: Held -CXR improved today, d/c paralytics and sedation. Xanax for anxiety. -S/P tocilizamab and convalescent plasma -Day 9 of cefepime -Covid diagnosed on 02/18/20 -Did not qualify for remdesivir -Steroids 02/23 -Respiratory acidosis with metabolic compensation (PEEP 10, Psupp 10, TV 500, [id number], Rate 10) Consider increasing rate Hyperkalemia -K 5.4 -Kayexalate -Repeat in AM SIRS -WBC downtrending, no bands -Pending UA, Bcx, procal neg -On cefepime -D/c femoral line today Hypernatremia -149, 3.9L free water deficit -Inc free water flushes -Start D5W replacement IV Edema -Improved with lasix -Monitor I/O -Lasix PRN Ileus -Improving. Having BMs -Continue reglan and stool softener -Resume OGT feeds at low rate COVID 19 B/L PNA Severe sepsis 2/2 above -BP stable off of pressers -BCx negative Hyperbilirubinemia Secondary to cirrhosis 4 > 6.4 > 7.2 worsening D/c paralytics/sedation Transaminase markers stable COVID Myocarditis -Cardiology on board, recs appreciated Active Hep C -Positive viral load -GI following, will need antivirals when transfers hopefuly today Anemia -Hb stable -Goal 8-10 due to current ACS, monitor daily Thrombocytopenia -Stable, no active signs of bleeding -likely 2/2 cirrhosis with superimposed COVID19 -Hold anticoagulation elevated INR - PT 29 > 26 >26 >24 - GI on board. Continue Vit K Hyperglycemia, likely 2/2 steroids -Continue NPH, aggressive sliding scale -Goal <180 QTc prolongation -Stable. 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 Lovenox contraindicated due to thrombocytopenia Diet - NG feeds Code Full Dispo: pt is in critical condition with poor prognosis due to difficulty in weaning vent and multiple comorbidities. Currently he is stable-Transfer to [facility] has been accepted, bed currently pending. Inc free water flushes and IV replacement. Addendum - Attending - Attending Attestation Date/Time: 03/07/20 7132 I personally evaluated the patient and discussed the management with Dr. Buenrostro. I agree with the History, Examination, Assessment and Plan documented above with any addition or exceptions noted below. Patient critical but stable. Continue free water repletion for hypernatremia. Continue vent mgmt per Pulm for COVID pneumonia. CXR stable. He has had some oozing, concern for cirrhotic coagulopathy versus DIC but labs are overall stable this morning. May need GI input though I do not suspect there is much we can do at this time for his liver function. Still awaiting transfer to [facility].
[2020-03-07 07:10] LABS: Actual Bicarbonate (HCO3a) 28.1 mEq/L (22-28); CO2 Tension 40.4 mmHg (35.0-45.0); Calcium, Ionized (arterial) 1.21 mmol/L (1.12-1.30); Carboxyhemoglobin (COHb) 1.3 gm% (0.0-3.0); Hemoglobin (Hb) 12.3 g/dL (14.0-18.0); Potassium - ABG Lab 5.07 mmol/L (3.70-5.30); pH, Arterial 7.46 (7.35-7.45)
[2020-03-07 07:25] LABS: Puncture Site RRA
--- NOTE | 2020-03-07 07:40 | RAD ---
Chest one view HISTORY: Pneumonia. Follow-up. COMPARISON: 03/06/2020. FINDINGS: Cardiac silhouette is magnified by projection. Pulmonary vasculature are less engorged than on the prior study. Subtle interstitial infiltrate in the left lower lobe is unchanged in appearance. Mediastinum is midline. Lines and tubes are unchanged in position. No evidence of pneumothorax. IMPRESSION : Stable radiographic appearance of the chest.
--- NOTE | 2020-03-07 09:01 | PRG ---
DATE OF SERVICE: 03/07/2020 SUBJECTIVE: Win Ortega remains in the ICU, intubated on the vent, sedated. OBJECTIVE: VITAL SIGNS: His temperature is 98, pulse 98, blood pressure 156/87, respiratory rate 18. His I's and O's have been consistently negative. CHEST: Decreased breath sounds. No wheezing. CARDIAC: Normal S1, S2. No gallops. ABDOMEN: No masses. LABORATORY DATA: White count 18,000, platelet count 27,000. His lytes show azotemia, appears to be prerenal. BUN and creatinine 90 and 0.7, glucose 169, bilirubin has gone up to 7.2, AST 94, actually it is much improved. Blood gases much improved; pO2 is 95, pCO2 of ASSESSMENT: Respiratory failure, coronavirus pneumonia, hepatic injury, diabetes. Hold sedation today, see we can wean him off the vent. Concerned about his ongoing worsening liver function. Clearly, his azotemia appears to be somewhat prerenal. We are still trying to get him to [place]. Probably has underlying cirrhosis. One-half hour of critical time. Job ID: [id number]
[2020-03-07] MEDS: Metoclopramide HCl 10 MG TAB PO SCH ×3 (09:35→20:08)
[2020-03-07] MEDS: methylPREDNISolone Sod Succ 40 MG VIAL IVP SCH ×2 (09:35→20:04)
[2020-03-07] MEDS: Multivits W-Minerals Liquid 15 ML LIQ PER TUBE SCH (09:35)
[2020-03-07] MEDS: NPH, Human Insulin Isophane 300 UNIT/3 ML VIAL SC SCH ×2 (09:35→20:59)
[2020-03-07] MEDS: Cefepime 1 GM in Sodium Chloride 0.9% 100 ML IVPB SCH ×2 (09:35→20:04)
[2020-03-07] MEDS ORDERED: Dextrose 5% in Water 1,000 ML IV SCH (10:15)
[2020-03-07] MEDS ORDERED: Pantoprazole 40 MG VIAL IVP SCH (11:45)
[2020-03-07] MEDS: Dextrose 5% in Water 1,000 ML IV SCH ×2 (13:15→23:20)
[2020-03-07 14:05] LABS: D-Dimer Test 3.57 *mcg/mL (0.27-0.43); INR-International Normal Ratio 2.3; PTT 36.1 sec (22.9-36.1); Prothrombin Time 24.7 sec (12.0-14.7)
[2020-03-07 14:16] LABS: Fibrinogen 39 mg/dL (253-463)
[2020-03-07 14:24] LABS: Anisocytosis SLIGHT = 6-15 cells (100X) (0-5/hpf); Band 37 % (5-11); Hemoglobin 12.3 g/dL (14.0-18.0); Hypochromia SLIGHT = 6-15 cells (100X) (0-5/hpf); Lymphocytes 1 % (21-51); MDiff Complete? YES; Macrocytosis SLIGHT = 6-15 cells (100X) (0-5/hpf); Mean Corpuscular HGB CONC 32.8 g/dL (32.0-36.0); Mean Corpuscular Hemoglobin 34.9 pg (27.0-31.0); Monocytes 7 % (0-10); Neutrophil 50 % (42-75); Platelet Count 33 thou/uL (130-400); Platelet Morphology Comment Appears Decreased; Polychromasia SLIGHT = 2-3 cells (100X) (0-2/hpf); RBC Distribution Width 14.8 % (11.5-14.5); Reactive Lymphocytes 5 % (0-10); Red Blood Cell (RBC) Count 3.53 mill/uL (4.70-6.10); Schistocytes SLIGHT = 2-5 cells (100X) (0-1/hpf); Tear Drops SLIGHT = 2-5 cells (100X) (0-1/hpf); White Blood Cell (WBC) Count 18.5 thou/uL (4.8-10.8)
--- NOTE | 2020-03-07 15:27 | PDOC.BPN ---
- Brief Progress Note Review of labs show possible DIC with low fibrinogen products. Patient with some blood tinged stool. Repeat H/H show stable hemoglobin. Hemodynamically stable. BCx show staph coag neg 1/2 and gram +. Possible contaminant but with 2/ 2 cultures will start Vancomycin. Called nursing to d/c central line, recommened doing so b/c source of infection. Nursing recommended not pulling line due to concern for difficult to control bleeding. Recommended closely clinically monitoring.
[2020-03-07] MEDS: Pantoprazole 40 MG VIAL IVP SCH (20:07)
[2020-03-08] MEDS: HumaLOG 300 UNITS/3 ML VIAL SC PRN (03:33)
[2020-03-08 04:10] LABS: INR-International Normal Ratio 1.9; Prothrombin Time 21.7 sec (12.0-14.7)
[2020-03-08 04:24] LABS: ALT (SGPT) 117 U/L (8-55); AST (SGOT) 126 U/L (5-34); Albumin 2.7 g/dL (3.4-4.8); Alkaline Phosphatase 88 U/L (40-110); Anion Gap 10 mmol/L (10-20); BUN (Urea Nitrogen) 84 mg/dL (8.4-25.7); Bilirubin, Total 11.5 mg/dL (0.2-1.2); Calc. Creatinine Clearance 157 mL/min (70-130); Calcium 8.1 mg/dL (7.8-10.44); Carbon Dioxide 30 mmol/L (23-31); Chloride 116 mmol/L (98-107); Estimated GFR-MDRD Greater than 90; Globulin 2.2 g/dL (2.4-3.5); Glucose 251 mg/dL (80-115); Potassium 5.3 mmol/L (3.5-5.1); Protein, Total 4.9 g/dL (5.8-8.1); Sodium 151 mmol/L (136-145)
[2020-03-08 04:32] LABS: Platelet Count 24 thou/uL (130-400)
[2020-03-08 05:38] LABS: Anisocytosis SLIGHT = 6-15 cells (100X) (0-5/hpf); Band 32 % (5-11); Hemoglobin 11.8 g/dL (14.0-18.0); Lymphocytes 1 % (21-51); MDiff Complete? YES; Mean Corpuscular HGB CONC 32.1 g/dL (32.0-36.0); Mean Corpuscular Hemoglobin 34.8 pg (27.0-31.0); Mean Platelet Volume 11.5 fL (7.4-10.4); Metamyelocyte 4 % (0-0); Monocytes 4 % (0-10); Myelocyte 2 % (0-0); Neutrophil 57 % (42-75); Platelet Morphology Comment Appears Decreased; White Blood Cell (WBC) Count 16.8 thou/uL (4.8-10.8)
--- NOTE | 2020-03-08 07:03 | PDOC.FM ---
- Subjective Subjective: NAEO. Patient has been off of sedation and paralytics for 24 hours, responds to pain but no other voluntary movements. Spontaneously opening eyes, no tracking. Breath stacking has resolved. - Objective MAR Reviewed: Yes Vital Signs & Weight: Vital Signs (12 hours) Temp Pulse Resp BP Pulse Ox 03/08/20 06:00 15 03/08/20 02:13 112 H 123/70 03/08/20 02:00 17 03/08/20 00:24 111 H 131/80 03/08/20 00:23 103 H 18 100 03/08/20 00:00 19 03/07/20 22:23 110 H 123/79 03/07/20 22:00 20 03/07/20 20:00 100.2 F H 16 99 Weight Admit Weight 92.533 kg Weight 100 kg Most Recent Monitor Data Heart Rate from ECG 114 NIBP 130/79 NIBP BP-Mean 96 Respiration from ECG 15 SpO2 100 I&O: 03/06/20 03/07/20 03/08/20 06:59 06:59 06:59 Intake Total 2543 2898 3837 Output Total 3045 2014 216 Balance -768 840 9475 Result Diagrams: 03/08/20 03:10 03/08/20 03:10 Dx/Plan (1) 2019 novel coronavirus disease (COVID-19) Code(s): U07.1 - COVID-19 Status: Acute (2) Acute respiratory failure with hypoxia Code(s): J96.01 - ACUTE RESPIRATORY FAILURE WITH HYPOXIA Status: Acute (3) Bilateral pneumonia Code(s): J18.9 - PNEUMONIA, UNSPECIFIED ORGANISM Status: Acute (4) Cirrhosis Code(s): K74.60 - UNSPECIFIED CIRRHOSIS OF LIVER Status: Acute (5) NSTEMI (non-ST elevated myocardial infarction) Code(s): I21.4 - NON-ST ELEVATION (NSTEMI) MYOCARDIAL INFARCTION Status: Acute (6) Thrombocytopenia Code(s): D69.6 - THROMBOCYTOPENIA, UNSPECIFIED Status: Acute - Plan Plan: Acute hypoxic hypercapneic respiratory failure 2/2 COVID PNA on mechanical ventilation -Intubated, ventilator/respiratory support. Pulm on board, recs appreciated -CXR improved today. Paralytics & sedation off. Xanax for agitation. -S/P tocilizamab and convalescent plasma -Day 9 of cefepime -Covid diagnosed on 02/18/20 -Did not qualify for remdesivir -Steroids 02/23 -Respiratory acidosis with metabolic compensation (PEEP 4, [id number], Rate 4) Encephalopathy -Infectious vs.anoxic -Check TSH -Continue to hold sedation Sepsis -Bandemia 37%, tachycardic -Bcx: coag neg staph, gram + cocci, pending finalizatin -Vanc & cefepime DIC vs cirrhotic coagulopathy -Fibrinogen 34 -Hemodynamically stable -GI rx no further interventions at this time -Treat systemic infection -Supportive care at this time Suspected GI bleed -Radu hematochezia and + occult gastric blood -IV protonix BID -Hb stable, check daily. Monitor for clinical signs of bleeding Hyperkalemia -K 5.3 -Kayexalate x1 SIRS -WBC downtrending, no bands -Pending UA, Bcx, procal neg -On cefepime Hypernatremia -149 >151 , 5.6 free water deficit -Inc free water flushes to 200 q6hr -D5W @ 100cc Edema -Lasix and albumin -Monitor I/O -Lasix PRN Ileus -Improving. Having BMs -Continue reglan and stool softener -Resume OGT feeds at low rate, monitor residuals COVID 19 B/L PNA Severe sepsis 2/2 above -BP stable off of pressers -BCx negative Hyperbilirubinemia Secondary to cirrhosis 4 > 6.4 > 7.2 > 11.5, worsening Hold paralytics/sedation COVID Myocarditis -Cardiology on board, recs appreciated Active Hep C -Positive viral load -GI following, will need antivirals when transfers hopefuly today Anemia -Hb stable -Goal 8-10 due to current ACS, monitor daily Thrombocytopenia -Stable, no active signs of bleeding -likely 2/2 cirrhosis with superimposed COVID19 -Hold anticoagulation elevated INR - PT 29 > 26 >26 >24 >21 - GI on board. Continue Vit K Hyperglycemia, likely 2/2 steroids -Continue NPH, aggressive sliding scale -Goal <180 QTc prolongation -Stable. 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 Lovenox contraindicated due to thrombocytopenia Diet - NG feeds Code Full Dispo: pt is in critical condition with poor prognosis due to difficulty in weaning vent and multiple comorbidities. Currently he is stable-Transfer to [facility] has been accepted, bed currently pending. Inc free water flushes and IV replacement. Addendum - Attending - Attending Attestation Date/Time: 03/08/20 2230 I personally evaluated the patient and discussed the management with Dr. Bunerostro. I agree with the History, Examination, Assessment and Plan documented above with any addition or exceptions noted below. Patient continues to be critically ill. His liver synthetic function is overall stable, but some evidence of worsening. He also may be in mild DIC based on lab parameters though difficult to clarify due to his cirrhotic coagulopathy. H/H stable. Mentation not improving now 24 hours off sedation. Pulm on board for vent mgmt. Monitor bleeding. He will have more free water today in attempt to improve his hypernatremia.
[2020-03-08] MEDS: Dextrose 5% in Water 1,000 ML IV SCH ×2 (07:20→17:00)
[2020-03-08] MEDS: Cefepime 1 GM in Sodium Chloride 0.9% 100 ML IVPB SCH ×2 (07:20→20:55)
[2020-03-08] MEDS: methylPREDNISolone Sod Succ 40 MG VIAL IVP SCH ×2 (07:21→20:56)
[2020-03-08] MEDS: Metoclopramide HCl 10 MG TAB PO SCH ×3 (07:21→20:57)
[2020-03-08] MEDS: Pantoprazole 40 MG VIAL IVP SCH ×2 (07:22→20:58)
[2020-03-08] MEDS: NPH, Human Insulin Isophane 300 UNIT/3 ML VIAL SC SCH ×2 (07:22→20:57)
[2020-03-08] MEDS: Multivits W-Minerals Liquid 15 ML LIQ PER TUBE SCH (07:28)
--- NOTE | 2020-03-08 07:38 | RAD ---
Chest one view HISTORY: Pneumonia. Follow-up. COMPARISON: 03/07/2000. FINDINGS: Cardiac silhouette is magnified by projection. Pulmonary vasculature slightly more engorged than on the prior study. Patchy areas of ill-defined parenchymal opacity within each lower lobe and the right upper lobe have progressed somewhat since previous exam. Mediastinum is midline. Lines and tubes are unchanged in position. No evidence of pneumothorax. campus monitor leads overlie the chest. IMPRESSION : Interval radiographic worsening of patchy bilateral infiltrates.
--- NOTE | 2020-03-08 09:59 | PRG ---
DATE OF SERVICE: 03/08/2020 SUBJECTIVE: A 64-year-old, he remains in the ICU, encephalopathic, off all sedation, does not awaken up. OBJECTIVE: VITAL SIGNS: Pulse 114, respiratory rate 18, saturations 100%, blood pressure 178/78. CHEST: No wheezing, crackles. CARDIAC: Sinus tach. ABDOMEN: Soft. LABORATORY DATA: Creatinine is normal. BUN is 84. Sodium 151, is still dry. Glucose 277. His bilirubin increased to 11. AST is 126, ALT 117. His fibrinogen level is 39 with an INR 2.3, PTT 36. X-ray shows stable findings. His bilateral infiltrates looks like a stabilized coronavirus pneumonia; respiratory failure, improved. Unfortunately, his worsening liver function may be low-grade DIC, possibly sepsis. PLAN: Avoid diuretics. Continue slow hydration. Added vancomycin. We may consider switching him over to meropenem tomorrow. Trying to get family regarding code status. One-half hour of critical time. Avoid lab blood gases. Job ID: [id number]
[2020-03-09] MEDS: Dextrose 5% in Water 1,000 ML IV SCH (03:34)
[2020-03-09] MEDS: HumaLOG 300 UNITS/3 ML VIAL SC PRN ×4 (03:51→23:10)
[2020-03-09 04:05] LABS: Hemoglobin 11.1 g/dL (14.0-18.0); Mean Corpuscular HGB CONC 33.2 g/dL (32.0-36.0); Mean Corpuscular Hemoglobin 35.5 pg (27.0-31.0); Mean Platelet Volume 10.5 fL (7.4-10.4); Platelet Count 22 thou/uL (130-400); RBC Distribution Width 14.8 % (11.5-14.5); Red Blood Cell (RBC) Count 3.11 mill/uL (4.70-6.10); White Blood Cell (WBC) Count 12.7 thou/uL (4.8-10.8)
[2020-03-09 04:09] LABS: INR-International Normal Ratio 1.7; Prothrombin Time 19.9 sec (12.0-14.7)
[2020-03-09 04:24] LABS: Vancomycin, Trough 23.5 ug/mL
[2020-03-09 04:28] LABS: Band 23 % (5-11); Lymphocytes 7 % (21-51); MDiff Complete? YES; Macrocytosis SLIGHT = 6-15 cells (100X) (0-5/hpf); Metamyelocyte 1 % (0-0); Monocytes 4 % (0-10); Neutrophil 65 % (42-75); Platelet Morphology Comment Appears Decreased
[2020-03-09 04:30] LABS: ALT (SGPT) 131 U/L (8-55); AST (SGOT) 147 U/L (5-34); Albumin 2.5 g/dL (3.4-4.8); Alkaline Phosphatase 106 U/L (40-110); Anion Gap 9 mmol/L (10-20); BUN (Urea Nitrogen) 79 mg/dL (8.4-25.7); Bilirubin, Total 10.7 mg/dL (0.2-1.2); Calc. Creatinine Clearance 79 mL/min (70-130); Carbon Dioxide 27 mmol/L (23-31); Chloride 114 mmol/L (98-107); Estimated GFR-MDRD Greater than 90; Globulin 2.2 g/dL (2.4-3.5); Glucose 313 mg/dL (80-115); Potassium 5.2 mmol/L (3.5-5.1); Protein, Total 4.7 g/dL (5.8-8.1); Sodium 145 mmol/L (136-145)
[2020-03-09] MEDS ORDERED: Vancomycin 1.5 GRAM/300 ML BAG 1.5 GM in Premix Bag 1 BAG IVPB SCH (05:00)
--- NOTE | 2020-03-09 06:52 | PDOC.FM ---
- Subjective Subjective: NAEO. Patient stable, no changes. - Objective MAR Reviewed: Yes Vital Signs & Weight: Vital Signs (12 hours) Pulse Resp BP Pulse Ox 03/09/20 06:00 23 H 03/09/20 04:00 22 H 03/09/20 03:06 108 H 102/69 03/09/20 02:00 17 03/09/20 01:17 109 H 21 H 96 03/09/20 00:00 23 H 03/08/20 22:27 114 H 113/75 03/08/20 22:00 18 03/08/20 20:00 18 98 Weight Admit Weight 92.533 kg Weight 101.2 kg Most Recent Monitor Data Heart Rate from ECG 108 NIBP 106/76 NIBP BP-Mean 86 Respiration from ECG 22 SpO2 95 I&O: 03/07/20 03/08/20 03/09/20 06:59 06:59 06:59 Intake Total 2898 3837 5407 Output Total 2014 2164 1940 Balance 889 7408 9892 Result Diagrams: 03/09/20 03:40 03/09/20 03:40 Phys Exam - Physical Examination Constitutional: NAD intubated HEENT: moist MMs Respiratory: no wheezing, clear to auscultation bilateral intubated Cardiovascular: RRR, no significant murmur Gastrointestinal: soft, non-tender, no distention 1+ edema GCS 5 ([id number]), not responding to pain or stimulation Dx/Plan (1) 2018 novel coronavirus disease (COVID-19) Code(s): U07.1 - COVID-19 Status: Acute (2) Acute respiratory failure with hypoxia Code(s): J96.01 - ACUTE RESPIRATORY FAILURE WITH HYPOXIA Status: Acute (3) Bilateral pneumonia Code(s): J18.9 - PNEUMONIA, UNSPECIFIED ORGANISM Status: Acute (4) Cirrhosis Code(s): K74.60 - UNSPECIFIED CIRRHOSIS OF LIVER Status: Acute (5) NSTEMI (non-ST elevated myocardial infarction) Code(s): I21.4 - NON-ST ELEVATION (NSTEMI) MYOCARDIAL INFARCTION Status: Acute (6) Thrombocytopenia Code(s): D69.6 - THROMBOCYTOPENIA, UNSPECIFIED Status: Acute - Plan Plan: Acute hypoxic hypercapneic respiratory failure 2/2 COVID PNA on mechanical ventilation -Intubated, ventilator/respiratory support. Pulm on board, recs appreciated -CXR improved today. Paralytics & sedation off. Xanax for agitation. -S/P tocilizamab and convalescent plasma -Day 10 of cefepime -Covid diagnosed on 02/18/20 -Did not qualify for remdesivir -Steroids 02/23 Encephalopathy -Unchanged, GCS 5T ([id number]) -Infectious vs.anoxic -Continue to hold sedation Yeast UTI -Pending finalization -Start diflucan Sepsis -BCx: Methicillin resistant staph epidermidis -Possible contaminant -Continue vancomycin Thrombocytopenia -22, consider platelets today DIC -Fibrinogen 34, schistocytes on blood smear -Hemodynamically stable -GI rx no further interventions at this time -Treat systemic infection -Supportive care at this time Suspected GI bleed -Radu hematochezia and + occult gastric blood -IV protonix BID -Hb stable, check daily. Monitor for clinical signs of bleeding Hyperkalemia -K 5.2 -Kayexalate x1 SIRS -WBC downtrending, no bands -Pending UA, Bcx, procal neg -On cefepime Hypernatremia-resolved -D/c D5W -Continue TF free water flushes -Daily CMP Edema -Stable -Monitor I/O -Lasix PRN Ileus -Improving. Having BMs -Continue reglan and stool softener -Resume OGT feeds at low rate, monitor residuals COVID 19 B/L PNA Severe sepsis 2/2 above -BP stable off of pressers -BCx negative Hyperbilirubinemia Secondary to cirrhosis 4 > 6.4 > 7.2 > 11.5, worsening Hold paralytics/sedation COVID Myocarditis -Cardiology on board, recs appreciated Active Hep C -Positive viral load -GI following, will need antivirals when transfers hopefuly today Anemia -Hb stable -Goal 8-10 due to current ACS, monitor daily Thrombocytopenia -Stable, no active signs of bleeding -likely 2/2 cirrhosis with superimposed COVID19 -Hold anticoagulation elevated INR - PT 29 > 26 >26 >24 >21 >19 - GI on board. Continue Vit K Hyperglycemia, likely 2/2 steroids -Continue NPH, aggressive sliding scale -Goal <180 QTc prolongation -Stable. 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 Lovenox contraindicated due to thrombocytopenia Diet - NG feeds Code DNAR Dispo: pt is in critical condition with poor prognosis due to decompensating cirrhosis. Child Richards Class C with life expectancy of 1-3 years. Palliative on board to update family. Transitioning to DNR given poor prognosis and multiple acute illnesses that I do not believe patient will recover from. Remains encephalopathic, workup negative could be due to multiple medical problems. Currently he is stable-Transfer to [facility] has been accepted, bed currently pending. Addendum - Attending - Attending Attestation Date/Time: 03/09/20 6639 I personally evaluated the patient and discussed the management with Dr. Buenrostro. I agree with the History, Examination, Assessment and Plan documented above with any addition or exceptions noted below. Patient critical but stsble. His encephalopathy has not improved, and he appears to still be in DIC with decompensated liver cirrhosis and now staoh bacteremia. He has been off sedation for 48 hours with no purposeful movement other than spontaneous breaths that are slow. He has been converted to DNAR status based on futility of care and agreement between multiple physicians.
--- NOTE | 2020-03-09 09:19 | PRG ---
DATE OF SERVICE: 03/09/2020 Win Ortega is getting progressively more jaundiced. Pulse on the vent settings, blood pressure 100/64. In fact, his x-ray looking better. Infiltrates are better, but still got persistent right-sided infiltrate. His blood gas had been discontinued. White count 08780, hemoglobin and hematocrit 11 and 33, platelet count 22, BUN and creatinine 79 and 0.6, bilirubin is now up to 10.9, AST is 147. Blood culture grew Staph epi, probably not a pathogen. IMPRESSION: 1. Respiratory failure, coronavirus pneumonia. 2. End-stage liver disease, worsening hepatitis, renal failure. 3. Discontinue all antibiotics. Continue supportive care. We made him a DNR. Once again try and contact family he is unlikely going to survive at the present event. 4. His pulmonary status is improving. Unfortunately, his liver function is getting progressively worse. One-half hour of critical time. Job ID: [id number]
[2020-03-09] MEDS: Multivits W-Minerals Liquid 15 ML LIQ PER TUBE SCH (10:09)
[2020-03-09] MEDS: methylPREDNISolone Sod Succ 40 MG VIAL IVP SCH ×2 (10:10→23:07)
[2020-03-09] MEDS: Pantoprazole 40 MG VIAL IVP SCH ×2 (10:10→23:08)
[2020-03-09] MEDS: Fluconazole 100 MG TAB PO SCH (10:11)
[2020-03-09] MEDS: Metoclopramide HCl 10 MG TAB PO SCH ×3 (10:12→23:08)
[2020-03-09] MEDS: NPH, Human Insulin Isophane 300 UNIT/3 ML VIAL SC SCH ×2 (10:40→23:08)
[2020-03-10 03:39] LABS: #Lymphocytes 0.8 thou/uL (1.20-3.40); #Monocytes 0.7 thou/uL (0.11-0.59); #Neutrophils 14.4 thou/uL (1.40-6.50); %Basophils 0.2 % (0.0-1.0); %Lymphocytes 5.2 % (21.0-51.0); %Monocytes 4.3 % (0.0-10.0); %Neutrophils 90.3 % (42.0-75.0); Hemoglobin 11.2 g/dL (14.0-18.0); Mean Corpuscular HGB CONC 32.5 g/dL (32.0-36.0); Mean Corpuscular Hemoglobin 34.8 pg (27.0-31.0); Mean Platelet Volume 12.3 fL (7.4-10.4); Platelet Count 23 thou/uL (130-400); RBC Distribution Width 15.4 % (11.5-14.5); Red Blood Cell (RBC) Count 3.23 mill/uL (4.70-6.10); White Blood Cell (WBC) Count 15.9 thou/uL (4.8-10.8)
[2020-03-10 03:43] LABS: INR-International Normal Ratio 1.7; Prothrombin Time 19.5 sec (12.0-14.7)
[2020-03-10 04:21] LABS: ALT (SGPT) 155 U/L (8-55); AST (SGOT) 151 U/L (5-34); Albumin 2.4 g/dL (3.4-4.8); Alkaline Phosphatase 144 U/L (40-110); Anion Gap 16 mmol/L (10-20); BUN (Urea Nitrogen) 105 mg/dL (8.4-25.7); Bilirubin, Total 11.8 mg/dL (0.2-1.2); Calc. Creatinine Clearance 86 mL/min (70-130); Carbon Dioxide 22 mmol/L (23-31); Chloride 113 mmol/L (98-107); Estimated GFR-MDRD 57; Globulin 2.2 g/dL (2.4-3.5); Glucose 290 mg/dL (80-115); Potassium 4.7 mmol/L (3.5-5.1); Protein, Total 4.6 g/dL (5.8-8.1); Sodium 146 mmol/L (136-145)
[2020-03-10] MEDS: HumaLOG 300 UNITS/3 ML VIAL SC PRN ×2 (05:40→09:35)
--- NOTE | 2020-03-10 05:50 | PDOC.FM ---
- Subjective Subjective: NAEO per nursing. Patient unresponsive to sternal rub, ocular pressure, pain. - Objective Vital Signs & Weight: Vital Signs (12 hours) Pulse Resp BP Pulse Ox 03/10/20 02:53 99 03/10/20 02:00 18 03/10/20 01:02 104 H 23 H 96 03/10/20 00:00 18 03/09/20 22:25 106 H 99/68 03/09/20 20:00 94 L 03/09/20 19:05 21 H 03/09/20 19:01 106 H 03/09/20 19:00 106 H 24 H 96 03/09/20 18:00 24 H Weight Admit Weight 92.533 kg Weight 101.2 kg Most Recent Monitor Data Heart Rate from ECG 101 NIBP 86/56 NIBP BP-Mean 66 Respiration from ECG 22 SpO2 97 I&O: 03/08/20 03/09/20 03/10/20 06:59 06:59 06:59 Intake Total 3837 5407 330 Output Total 2165 1940 1225 Balance 1672 0465 -561 Result Diagrams: 03/10/20 03:10 03/10/20 03:10 Phys Exam - Physical Examination Constitutional: NAD intubated, icteric Respiratory: no wheezing, clear to auscultation bilateral Cardiovascular: RRR, no significant murmur Gastrointestinal: soft, non-tender 1+ edema no movement GCS 5T Deviation from normal: unable to assess Deviation from normal: multiple tattoos Dx/Plan (1) 2018 novel coronavirus disease (COVID-19) Code(s): U07.1 - COVID-19 Status: Acute (2) Acute respiratory failure with hypoxia Code(s): J96.01 - ACUTE RESPIRATORY FAILURE WITH HYPOXIA Status: Acute (3) Bilateral pneumonia Code(s): J18.9 - PNEUMONIA, UNSPECIFIED ORGANISM Status: Acute (4) Cirrhosis Code(s): K74.60 - UNSPECIFIED CIRRHOSIS OF LIVER Status: Acute (5) NSTEMI (non-ST elevated myocardial infarction) Code(s): I21.4 - NON-ST ELEVATION (NSTEMI) MYOCARDIAL INFARCTION Status: Acute (6) Thrombocytopenia Code(s): D69.6 - THROMBOCYTOPENIA, UNSPECIFIED Status: Acute - Plan Plan: Acute hypoxic hypercapneic respiratory failure 2/2 COVID PNA on mechanical ventilation -Intubated, ventilator/respiratory support. Pulm on board, recs appreciated -CXR improved today. Paralytics & sedation off. Xanax for agitation. -S/P tocilizamab and convalescent plasma -Day 10 of cefepime -Covid diagnosed on 02/18/20 -Did not qualify for remdesivir -Steroids 02/23 KAREN -Likely prerenal with borderline BPs -Monitor -IVF Low BPs -MAPs borderline- 60-70s -Will bolus -Need to discuss how aggressive to be with palliative/family Encephalopathy -Unchanged, GCS 5T ([id number]) -Infectious vs.anoxic -Continue to hold sedation Marianela UTUI -Start diflucan Sepsis -BCx: Methicillin resistant staph epidermidis -Possible contaminant -Continue vancomycin Thrombocytopenia -22, consider platelets today DIC -Fibrinogen 34, schistocytes on blood smear -Hemodynamically stable -GI rx no further interventions at this time -Treat systemic infection -Supportive care at this time Suspected GI bleed -Radu hematochezia and + occult gastric blood -IV protonix BID -Hb stable, check daily. Monitor for clinical signs of bleeding Hyperkalemia-resolved Hypernatremia -Inc TF free water fluhses Edema -Stable -Monitor I/O -Lasix PRN Ileus-resolved -Improving. Having BMs -Continue reglan and stool softener -Resume OGT feeds at low rate, monitor residuals COVID 19 B/L PNA Severe sepsis 2/2 above -BP stable off of pressers -BCx negative Hyperbilirubinemia Secondary to cirrhosis 4 > 6.4 > 7.2 > 11.5, worsening Hold paralytics/sedation COVID Myocarditis -Cardiology on board, recs appreciated Active Hep C -Positive viral load -GI following, will need antivirals when transfers hopefuly today Anemia -Hb stable -Goal 8-10 due to current ACS, monitor daily Thrombocytopenia -Stable, no active signs of bleeding -likely 2/2 cirrhosis with superimposed COVID19 -Hold anticoagulation elevated INR - PT 29 > 26 >26 >24 >21 >19 - GI on board. Continue Vit K Hyperglycemia, likely 2/2 steroids -Continue NPH, aggressive sliding scale -Goal <180 QTc prolongation -Stable. 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 Lovenox contraindicated due to thrombocytopenia Diet - NG feeds Code DNAR Dispo: pt is in critical condition with poor prognosis due to decompensating cirrhosis. Child Richards Class C with life expectancy of 1-3 years. Palliative on board to update family. Transitioning to DNR given poor prognosis and multiple acute illnesses that I do not believe patient will recover from. Remains encephalopathic with no response to stimuli, workup negative could be due to multiple medical problems. Hoping for family visit today to discuss withdrawal of care. Transfer to [facility] has been accepted, bed currently pending. Addendum - Attending - Attending Attestation Date/Time: 03/10/20 4139 I personally evaluated the patient and discussed the management with Dr. Buenrostro. I agree with the History, Examination, Assessment and Plan documented above with any addition or exceptions noted below. Patient with no significant change. Mentation unchanged now 72 hours off sedation. Suspect some degree of anoxic injury from his original presentation. DIC and liver function stable. DNAR status. Discussion regarding withdrawal of care.
[2020-03-10] MEDS ORDERED: Dextrose 5% in Water 1,000 ML IV SCH (07:00)
[2020-03-10] MEDS ORDERED: Lactated Ringer's 500 ML IV SCH (07:30)
[2020-03-10] MEDS: methylPREDNISolone Sod Succ 40 MG VIAL IVP SCH (08:41)
[2020-03-10] MEDS: Multivits W-Minerals Liquid 15 ML LIQ PER TUBE SCH (08:41)
[2020-03-10] MEDS: Fluconazole 100 MG TAB PO SCH (08:41)
[2020-03-10] MEDS: Metoclopramide HCl 10 MG TAB PO SCH (08:41)
[2020-03-10] MEDS: Pantoprazole 40 MG VIAL IVP SCH (08:42)
[2020-03-10] MEDS ORDERED: NPH, Human Insulin Isophane 300 UNIT/3 ML VIAL SC SCH (09:00)
--- NOTE | 2020-03-10 12:19 | PRG ---
DATE OF SERVICE: 03/10/2020 OBJECTIVE: VITAL SIGNS: Mr. Guy heart rate is in the 90s, blood pressure 95/60, FiO2 is at 40%, and respiratory rates in the teens. LUNGS: Unchanged. HEART: Unchanged. ABDOMEN: Unchanged. LABORATORY DATA: White count 15.9, hemoglobin 11.2, and platelets are 23,000. Sodium 146, potassium 4.7, chloride 113, bicarb 22, BUN 105, and creatinine 1.28. IMPRESSION: 1. Cirrhosis. 2. Chronic kidney disease. 3. Respiratory failure. 4. Franco virus pneumonia. Family is contemplating withdrawal of care. This would not be unreasonable in my opinion. Job ID: [id number]
[2020-03-10 13:27] VITALS: BMI 30.7
[2020-03-10] MEDS ORDERED: Scopolamine 1.5 mg/72 hour Patch TD PRN (13:59)
[2020-03-10] MEDS ORDERED: Lorazepam 2 MG/ML VIAL SLOW IVP PRN ×2 (13:59)
[2020-03-10] MEDS ORDERED: diphenhydrAMINE 50 MG/ML VIAL IVP PRN (13:59)
[2020-03-10] MEDS ORDERED: Morphine 2 MG/ML SYRINGE SLOW IVP PRN ×2 (14:00)
--- NOTE | 2020-03-10 14:06 | PDOC.BPN ---
- Brief Progress Note Dr. Yue Morin and myself had discussion with patient's sisters Reva and Phuong regarding patient's prognosis and goals of care moving forward. Sister's questions answered. They expressed desire to keep the patient comfortable. They both wish for terminal extubation of patient at this time. Sisters do not wish to continue prolongation of life measures such as pressors for blood pressure management.
[2020-03-10] MEDS ORDERED: Morphine 4 MG/ML VIAL SLOW IVP SCH (14:15)
[2020-03-10] MEDS ORDERED: Lorazepam 2 MG/ML VIAL SLOW IVP SCH (14:15)
[2020-03-10] MEDS: Lorazepam 2 MG/ML VIAL SLOW IVP PRN ×4 (14:25→14:59)
[2020-03-10] MEDS: Morphine 4 MG/ML VIAL SLOW IVP PRN ×4 (14:25→14:59)
--- NOTE | 2020-03-11 05:49 | PDOC.FM ---
- Subjective Subjective: NAEO. Stable per nurse. On 2L oxygen for comfort - Objective MAR Reviewed: Yes Vital Signs & Weight: Vital Signs (12 hours) Temp Pulse Resp BP Pulse Ox 03/11/20 04:02 97.2 F L 83 12 90/50 L 86 L 03/10/20 23:05 96.7 F L 78 8 L 88/52 L 89 L 03/10/20 19:07 98.1 F 86 12 79/57 L 79 L Weight Admit Weight 92.533 kg Weight 102.7 kg Most Recent Monitor Data Heart Rate from ECG 88 NIBP 83/50 NIBP BP-Mean 61 Respiration from ECG 12 SpO2 77 I&O: 03/09/20 03/10/20 03/11/20 06:59 06:59 06:59 Intake Total 5407 420 600 Output Total 1940 1345 600 Balance 3467 -925 0 Result Diagrams: 03/10/20 03:10 03/10/20 03:10 Phys Exam - Physical Examination unresponsive to pain stimuli, icteric sclera secretions Cardiovascular: RRR, no significant murmur Gastrointestinal: soft 1+ edema No extremity movement Deviation from normal: multiple tattoos Dx/Plan (1) 2018 novel coronavirus disease (COVID-19) Code(s): U07.1 - COVID-19 Status: Acute (2) Acute respiratory failure with hypoxia Code(s): J96.01 - ACUTE RESPIRATORY FAILURE WITH HYPOXIA Status: Acute (3) Bilateral pneumonia Code(s): J18.9 - PNEUMONIA, UNSPECIFIED ORGANISM Status: Acute (4) Cirrhosis Code(s): K74.60 - UNSPECIFIED CIRRHOSIS OF LIVER Status: Acute (5) NSTEMI (non-ST elevated myocardial infarction) Code(s): I21.4 - NON-ST ELEVATION (NSTEMI) MYOCARDIAL INFARCTION Status: Acute (6) Thrombocytopenia Code(s): D69.6 - THROMBOCYTOPENIA, UNSPECIFIED Status: Acute - Plan Plan: Acute hypoxic hypercapneic respiratory failure 2/2 COVID PNA -S/P tocilizamab and convalescent plasma -Covid diagnosed on 02/18/20 -Did not qualify for remdesivir -Terminally extbuated 02/07 after discussion with sisters -Palliative care, pending bed transfer Low BPs -MAPs borderline- 60-70s Encephalopathy -Unchanged, GCS 5T ([id number]) -Infectious vs.anoxic -Unchanged since admission Marianela UTI -Start diflucan Sepsis -BCx: Methicillin resistant staph epidermidis -Possible contaminant -Continue vancomycin Thrombocytopenia -22, consider platelets today DIC -Fibrinogen 34, schistocytes on blood smear -Hemodynamically stable -GI rx no further interventions at this time -Treat systemic infection -Supportive care at this time Suspected GI bleed -Radu hematochezia and + occult gastric blood -IV protonix BID -Hb stable, check daily. Monitor for clinical signs of bleeding Hyperkalemia-resolved Hypernatremia -Inc TF free water fluhses Edema -Stable -Monitor I/O -Lasix PRN Ileus-resolved -Improving. Having BMs -Continue reglan and stool softener -Resume OGT feeds at low rate, monitor residuals COVID 19 B/L PNA Severe sepsis 2/2 above -BP stable off of pressers -BCx negative Hyperbilirubinemia Secondary to cirrhosis 4 > 6.4 > 7.2 > 11.5, worsening Hold paralytics/sedation COVID Myocarditis -Cardiology on board, recs appreciated Active Hep C -Positive viral load -GI following, will need antivirals when transfers hopefuly today Anemia -Hb stable -Goal 8-10 due to current ACS, monitor daily Thrombocytopenia -Stable, no active signs of bleeding -likely 2/2 cirrhosis with superimposed COVID19 -Hold anticoagulation elevated INR - PT 29 > 26 >26 >24 >21 >19 - GI on board. Continue Vit K Hyperglycemia, likely 2/2 steroids -Continue NPH, aggressive sliding scale -Goal <180 QTc prolongation -Stable. 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 Lovenox contraindicated due to thrombocytopenia Diet - NG feeds Code DNAR Dispo: pt is in critical condition with poor prognosis due to decompensating cirrhosis. Child Richards Class C with life expectancy of 1-3 years. Terminally extbuated 03/10, continue comfort measures. Palliative care to assist. Transfer to [facility] has been accepted, bed currently pending. If doesn't transfer soon patient likely to pass in days-weeks. Addendum - Attending - Attending Attestation Date/Time: 03/11/20 4037 I personally evaluated the patient and discussed the management with Dr. Buenrostro. I agree with the History, Examination, Assessment and Plan documented above with any addition or exceptions noted below. Patient here with COVID pneumonia that resulted in decompensated cirrhosis, DIC , and staph bacteremia. He is now s/p terminal extubation and pursuing comfort measures. Do not anticipate prolonged survival at this time.
[2020-03-11 08:04] VITALS: BP 84/54; TEMP 97.4
--- NOTE | 2020-03-11 21:38 | DIS ---
DATE OF ADMISSION: 02/24/2020 DATE OF DISCHARGE: 03/11/2020 SUMMARY: RESIDENT: Elke Buenrostro MD, PGY-2 DATE OF : 03/11/2020. TIME OF : 11:44 a.m. CAUSE OF : 1. COVID pneumonia. 2. Anoxic brain injury. 3. Decompensated liver cirrhosis. SECONDARY DIAGNOSES: DIC. HISTORY OF PRESENT ILLNESS/HOSPITAL COURSE: Mr. Win Ortega is a 64-year-old inmate with cirrhosis secondary to hepatitis C, was admitted for acute hypoxic respiratory failure and sepsis secondary to COVID-19 pneumonia. The patient was intubated and treated for sepsis. Though his breathing recovered, unfortunately, he continued to develop complications during the hospital including decompensated cirrhosis and DIC. Fortunately, despite being off paralytics and sedatives, he never resumed a normal neurologic status. Likely, he suffered anoxic brain injury from initial low blood pressures. He essentially lost most of his cerebral activities with no further spontaneous eye movements and loss of responses of withdrawing to pain. After 14 days on the ventilator. Family was contacted and it was decided that they wish to withdraw care due to his very poor prognosis. The patient on 03/11/2020 due to medical conditions above. Family was contacted and updated and support and resources were offered should they need anything . Job ID: [id number]
== END 2020-03-11 14:11 | disposition expired | DRG 870 ==
LOC: ERS 17:24 → EEVIPCON 17:24 → CCU 20:15 → 2SW 03-10 19:29
PROVIDERS: ADMIT Family Medicine; ATTEND Family Medicine
PROC: 5A1955Z Respiratory Ventilation, Greater than 96 Consecutive Hours (ICD-10-PCS; principal; 2020-02-24)
PROC: 8E0ZXY6 Isolation (ICD-10-PCS; 2020-02-24)
PROC: 0BH17EZ Insertion of Endotracheal Airway into Trachea, Via Natural or Artificial Opening (ICD-10-PCS; 2020-02-24)
PROC: 06HY33Z Insertion of Infusion Device into Lower Vein, Percutaneous Approach (ICD-10-PCS; 2020-02-24)
PROC: 3E033XZ Introduction of Vasopressor into Peripheral Vein, Percutaneous Approach (ICD-10-PCS; 2020-02-24)
DX: A41.89 Other specified sepsis (principal); U07.1 COVID-19; J12.89 Other viral pneumonia; I21.4 Non-ST elevation (NSTEMI) myocardial infarction; J96.01 Acute respiratory failure with hypoxia; J96.02 Acute respiratory failure with hypercapnia; D65 Disseminated intravascular coagulation [defibrination syndrome]; J44.0 Chronic obstructive pulmonary disease with (acute) lower respiratory infection; E87.2 Acidosis; D61.818 Other pancytopenia; G93.1 Anoxic brain damage, not elsewhere classified; E87.0 Hyperosmolality and hypernatremia; K56.7 Ileus, unspecified; G93.40 Encephalopathy, unspecified; B37.49 Other urogenital candidiasis; N17.9 Acute kidney failure, unspecified; Z51.5 Encounter for palliative care; Z66 Do not resuscitate; R65.20 Severe sepsis without septic shock; I25.10 Atherosclerotic heart disease of native coronary artery without angina pectoris; E78.5 Hyperlipidemia, unspecified; K74.60 Unspecified cirrhosis of liver; D69.59 Other secondary thrombocytopenia; D73.1 Hypersplenism; F31.9 Bipolar disorder, unspecified; I51.4 Myocarditis, unspecified; E11.65 Type 2 diabetes mellitus with hyperglycemia; D64.9 Anemia, unspecified; B18.2 Chronic viral hepatitis C; I12.9 Hypertensive chronic kidney disease with stage 1 through stage 4 chronic kidney disease, or unspecified chronic kidney disease; N18.9 Chronic kidney disease, unspecified; R94.31 Abnormal electrocardiogram [ECG] [EKG]; E87.5 Hyperkalemia; I48.0 Paroxysmal atrial fibrillation; T38.0X5A Adverse effect of glucocorticoids and synthetic analogues, initial encounter; Z87.891 Personal history of nicotine dependence; Z79.82 Long term (current) use of aspirin; Z79.899 Other long term (current) drug therapy
CPT/HCPCS: 31500; 36415; 36416; 36430; 51702; 71045; 80053; 80202; 81001; 81003; 81015; 82140; 82248; 82271; 82550; 82553; 82607; 82728; 82746; 82805; 83036; 83540; 83605; 83735; 84145; 84443; 84484; 85025; 85060; 85379; 85384; 85610; 85730; 86140; 86706; 86803; 86850; 86900; 86901; 87040; 87077; 87086; 87149; 87186; 87340; 87522; 93005; 93010; 94002; 94003; 94640; 96365; 96366; 96367; 99292; C9113; J0282; J0692; J1815; J1940; J2060; J2270; J2704; J2765; J2920; J2930; J3010; J3262; J3370; J3430; J3490; J7030; J7070; J7620; P9045; P9047; S0028